=== PATIENT | male | born 1975 | race Caucasian/White ===

== ENCOUNTER → 2017-11-19 16:47 | Outpatient (CLI) | payer BC, SELFPAY ==
--- NOTE | 2017-11-19 16:51 | CT_ITS ---
STUDY: CT ABDOMEN AND PELVIS WITH AND WITHOUT CONTRAST REASON FOR EXAM: Male, 42 years old. Hematuria RADIATION DOSAGE (If Supplied By Facility): CTDIvol = ( 18.76 ) mGy, DLP = ( 1704.98 ) mGycm TECHNIQUE: Transaxial images were obtained from the dome of the diaphragm to the symphysis pubis without oral contrast. 100mL ml of Isovue 300 contrast was administered. Sagittal and coronal images were reconstructed. Individualized dose optimization techniques were used for this CT. COMPARISON: None. FINDINGS: The visualized lung bases are unremarkable. The visualized portions of the heart are within normal limits. There are no calcified gallstones present. The liver, spleen, pancreas and adrenal glands are within normal limits. There are no urinary calculi. There is no hydronephrosis. There are no focal renal lesions. Urinary bladder is unremarkable. There is no bowel obstruction or inflammation. The appendix is normal. There is no abdominal or pelvic free air, free fluid or lymphadenopathy. The aorta is normal in caliber. There are no destructive osseous lesions. There are degenerative changes in the lower lumbar spine. CT/CT Abd/Pelvis W/WO Contrast IMPRESSION: No acute abdominal or pelvic pathology. No cause for patient's hematuria identified on this study. Degenerative changes in the lower lumbar spine. Electronically Signed: Daryn Bal, at 19:20 EDT Tel , Service support ,
== END ==
PROVIDERS: Visit Provider Family Medicine
DX: N20.0 Calculus of kidney (principal)
CPT/HCPCS: 74178; Q9967

== ENCOUNTER 2023-01-03 10:31 | Emergency (ER) | payer BC, SELFPAY ==
[2023-01-03 10:33] VITALS: PULSE 89; RESP 18; TEMP 36; O2SAT 98; BMI 27.2
[2023-01-03 10:34] VITALS: BP 121/79; PULSE 95; RESP 18; O2SAT 99
--- NOTE | 2023-01-03 11:19 | EX.ED.GUMALE ---
HPI History of Present Illness Chief Complaint: Male Pain/Injury Informant: patient and spouse/S.O. Narrative Narrative: 47-year-old male presenting to the emergency department with chief complaint of syphilis. Patient states that his tested positive for syphilis and is here to get an injection of Bicillin after she was seen by infectious disease. He states that back in September when she developed a rash he also had a diffuse rash but has since resolved. He notes that he has painful sores on his scrotum now. He did test positive at an urgent care for syphilis. He states that the sores on his scrotum have developed and he was given methylprednisolone and gabapentin. He states that that has not helped. Other than urgent care he has not seen anybody for this. His significant other has been unable to find a pharmacy to get Bicillin injection and so came here which is how he ended up here. He denies any neurologic symptoms. No fevers. No dysuria. [facility] Medical History Hemorrhoids Pruritus ani Home Medications aspirin 81 mg tablet,delayed release (Adult Aspirin Regimen) 81 mg PO DAILY 09/17/22 [History Last Taken Unknown] oxycodone-acetaminophen 5 mg-325 mg tablet 1 tab PO Q6H PRN PRN Pain 3 days #12 TABLETS 01/03/23 [Rx Last Taken Unknown] sulfamethoxazole 800 mg-trimethoprim 160 mg tablet (Bactrim DS) 1 tab PO BID 10 days #20 tabs 01/03/23 [Rx Last Taken Unknown] Allergy/AdvReac Type Severity Reaction Status Date / Time No Known Allergies Allergy Verified 01/03/23 10:35 Social History Smoking Status: Unknown if ever smoked ROS ROS ED Constitutional Constitutional ED: Denies chills, fever(s) or weight loss Eyes Eyes: Denies change in vision or diplopia ENT ENT ED: Denies ear pain, rhinorrhea or sore throat Cardiovascular Cardiovascular: Denies chest pain, orthopnea, palpitations or racing heartbeat Respiratory/Chest Respiratory/Chest: Denies cough, dyspnea or orthopnea Gastrointestinal Gastrointestinal: Denies abdominal pain, diarrhea, nausea or vomiting Genitourinary Genitourinary ED: Denies dysuria, hematuria or urinary frequency Musculoskeletal Musculoskeletal: Denies arthralgias or myalgias Integumentary Reports rash and other Details: Pain follow scrotal lesions ; Denies abscess Neurologic Neurologic: Denies headache(s) or weakness Psychiatric Psychiatric: Denies anxiety, depression, suicidal ideation or suicidal thoughts Endocrine Endocrinology: Denies polydipsia, polyphagia or polyuria Allergic/Immunologic Allergic/Immunologic ED: Denies mouth swelling, tongue swelling or urticaria EXAM Physical Exam Const Vital Signs: 01/03/23 10:33 01/03/23 10:34 Temperature 96.8 F L Temperature Source Temporal Pulse Rate 89 95 Respiratory Rate 18 18 Blood Pressure 121/79 H Blood Pressure Mean 93 Pulse Ox 98 99 Oxygen Delivery Method Room Air Positive well nourished and well developed General Appearance ED: well developed HEENT Reports normocephalic, head/scalp atraumatic and moist mucous membranes Eyes PERRL and EOMs intact bilaterally Neck no lymphadenopathy, supple and no JVD Resp normal respiratory effort and clear to auscultation bilaterally Cardio regular rate, regular rhythm and no murmurs GI normal to inspection, nondistended, normoactive bowel sounds and non-tender Palpation: soft Back/Spine no CVA tenderness and normal ROM Extremity normal to inspection General Extremety ED: Negative for edema General Extremity: Negative for edema Neuro oriented x3 and CN's II-XII intact bilaterally Sensorium / Orientation: alert Motor Exam: strength 5/5 throughout Psych mental status grossly normal Mood & Affect: Negative for depressed or tearful Skin Skin Narrative: The scrotum demonstrates some erythema and swelling. Testicles appeared normal. There are multiple excoriated lesions on the scrotum that are in various states of healing. The penile shaft and glans appear normal. No drainage from the meatus. No significant inguinal lymphadenopathy felt. MDM MDM MDM Narrative Medical decision making narrative: Patient will be given penicillin G injection. I am also going to have him stop the prednisolone. I can write for some Percocet for pain control. I am going to write for Bactrim given the multiple lesions and erythema of the scrotum. He is to follow-up with infectious disease. Discharge Plan Triage Chief Complaint: Male Pain/Injury ED Provider: Steve Mcfarland Dx/Rx/DC Orders Clinical Impression: Cellulitis of scrotum, Syphilis Instructions: Syphilis, ED Cellulitis Prescriptions: New sulfamethoxazole-trimethoprim [Bactrim DS] 800-160 mg tablet 1 tab PO BID 10 Days Qty: 20 0RF oxycodone-acetaminophen [oxycodone-acetaminophen] 5-325 mg tablet 1 tab PO Q6H PRN PRN (Reason: Pain) 3 Days Qty: 12 0RF No Action aspirin [Adult Aspirin Regimen] 81 mg tablet,delayed release (DR/EC) 81 mg PO DAILY Primary Care Provider: Care Physician,No Primary Referrals: Austyn Allen MD [Med Staff - Active Staff] - As soon as possible Care Physician,No Primary [Primary Care Provider] - Disposition Disposition: Home, Self Care
[2023-01-03] MEDS: Penicillin G Benzathine 2.4 MU/4 ML Syringe IM (12:19)
== END 2023-01-03 13:13 | disposition home or self-care (01) ==
PROVIDERS: Emergency Provider Emergency Medicine; PCP Family Medicine; Visit Provider Emergency Medicine
DX: N49.2 Inflammatory disorders of scrotum (principal); A53.9 Syphilis, unspecified
CPT/HCPCS: 96372; 99283

== ENCOUNTER 2023-02-02 15:46 | Emergency (ER) | payer BC, SELFPAY ==
[2023-02-02 15:49] VITALS: BP 130/81; PULSE 81; RESP 18; TEMP 36.3; O2SAT 100; BMI 28.1
--- NOTE | 2023-02-02 15:59 | RAD_ITS ---
EXAM: XR LEFT ELBOW COMPLETE, 3 OR MORE VIEWS CLINICAL INDICATION: fall, pain. TECHNIQUE: Frontal, lateral and oblique views of the left elbow. COMPARISON: No relevant prior studies available. FINDINGS: BONES/JOINTS: Small olecranon spur. There is no displacement of the anterior or posterior fat pads. No acute fracture. No subluxation. Normal alignment. Preservation of the joint space. No destructive or sclerotic lesions. SOFT TISSUES: No significant abnormality. No soft tissue swelling or gas. No radiopaque foreign body. RAD/Elbow min 3 Views IMPRESSION: Small olecranon spur. No acute osseous findings. Electronically Signed: Abdi Matias DO at 16:37 EDT ,
--- NOTE | 2023-02-02 16:00 | EKG12_ITS ---
Test Reason : SYNCOPE Blood Pressure : / mmHG Vent. Rate : 075 BPM Atrial Rate : 075 BPM P-R Int : 160 ms QRS Dur : 096 ms QT Int : 368 ms P-R-T Axes : 053 032 031 degrees QTc Int : 410 ms Normal sinus rhythm Possible Left atrial enlargement Borderline ECG Confirmed by NAZ JIMENES, MICHAEL ([id number]), writer editor SCHUYLER LARA ([id number]) on 02/04/2023 10:44:36 AM Referred By: Confirmed By:MICHAEL CHILDS MD
--- NOTE | 2023-02-02 16:08 | CT_ITS ---
EXAM: CT ANGIOGRAPHY HEAD AND NECK WITHOUT AND WITH INTRAVENOUS CONTRAST CLINICAL INDICATION: syncope TECHNIQUE: [place] [facility] [place]/head and neck CT angiography protocol performed without and with intravenous contrast. This CT exam was performed using one or more of the following dose reduction techniques: automated exposure control, adjustment of the mA and/or kV according to patient size, and/or use of iterative reconstruction technique. MIP reconstructed images were created and reviewed. CONTRAST: IV 100mL Isovue-370 COMPARISON: No relevant prior studies available. FINDINGS: HEAD: RIGHT ANTERIOR CEREBRAL ARTERY: No significant abnormality. No significant stenosis at the visualized segments. Anterior communicating artery is present. No aneurysm. RIGHT MIDDLE CEREBRAL ARTERY: No significant abnormality. No significant stenosis at the visualized segments. No aneurysm. RIGHT POSTERIOR CEREBRAL ARTERY: No significant abnormality. No occlusion or significant stenosis. No aneurysm. RIGHT INTRACRANIAL INTERNAL CAROTID ARTERY: No significant abnormality. No significant stenosis. No dissection or occlusion. RIGHT INTRACRANIAL VERTEBRAL ARTERY: No significant abnormality. No significant stenosis. No dissection or occlusion. LEFT ANTERIOR CEREBRAL ARTERY: No significant abnormality. No significant stenosis at the visualized segments. No aneurysm. LEFT MIDDLE CEREBRAL ARTERY: No significant abnormality. No significant stenosis at the visualized segments. No aneurysm. LEFT POSTERIOR CEREBRAL ARTERY: No significant abnormality. No occlusion or significant stenosis. No aneurysm. LEFT INTRACRANIAL INTERNAL CAROTID ARTERY: No significant abnormality. No significant stenosis. No dissection or occlusion. LEFT INTRACRANIAL VERTEBRAL ARTERY: No significant abnormality. No significant stenosis. No dissection or occlusion. BASILAR ARTERY: No significant abnormality. No significant stenosis. No aneurysm. OTHER VASCULATURE: No vascular malformation. BRAIN AND EXTRA-AXIAL SPACES: No significant abnormality. No intra- or extra-axial hemorrhage. No evidence of acute infarct. No intracranial mass or mass effect. There is preservation of the simon/white matter interface. Posterior fossa structures are unremarkable. Ventricles are appropriate for age. No hydrocephalus. Basal cisterns are patent. SINUSES: Normal as visualized. Clear. MASTOID AIR CELLS: Normal as visualized. Clear. ORBITS: Visualized globes, extraocular muscles, optic nerves and retrobulbar fat appear unremarkable. DENTAL: The patient is edentulous. NECK: RIGHT COMMON CAROTID ARTERY: No significant abnormality. No significant stenosis. No dissection or occlusion. RIGHT EXTRACRANIAL INTERNAL CAROTID ARTERY: No significant abnormality. No significant stenosis. No dissection or occlusion. RIGHT EXTERNAL CAROTID ARTERY: No significant abnormality. No occlusion. RIGHT EXTRACRANIAL VERTEBRAL ARTERY: No significant abnormality. No significant stenosis. No dissection or occlusion. LEFT COMMON CAROTID ARTERY: No significant abnormality. No significant stenosis. No dissection or occlusion. LEFT EXTRACRANIAL INTERNAL CAROTID ARTERY: No significant abnormality. No significant stenosis. No dissection or occlusion. LEFT EXTERNAL CAROTID ARTERY: No significant abnormality. No occlusion. LEFT EXTRACRANIAL VERTEBRAL ARTERY: No significant abnormality. No significant stenosis. No dissection or occlusion. OROPHARYNX: Asymmetric faucial tonsil enlargement with left tonsillar calcification perhaps secondary to chronic and/or recurrent infection/inflammation. The left tonsil is slightly larger than the right. BRACHIOCEPHALIC AND SUBCLAVIAN ARTERIES: Normal as visualized. No occlusion or significant stenosis. LUNG APICES: Normal as visualized. HEAD and NECK: BONES/JOINTS: Degenerative changes in the cervical spine. No discrete lytic or blastic abnormalities. SOFT TISSUES: No significant abnormality. CAROTID STENOSIS REFERENCE USING NASCET CRITERIA: % ICA stenosis = (1 - narrowest ICA diameter/diameter of distal cervical ICA) x 100. Mild - <50% stenosis. Moderate - 50-69% stenosis. Severe - 70-94% stenosis. Near occlusion - 95-99% stenosis. Occluded - 100% stenosis. CT/CTA Head AND Neck W/ Contrast IMPRESSION: 1. No large vessel occlusion or critical intracranial arterial stenosis. No significant arterial disease in the neck. 2. Noncontrast appearance of the head is normal for age. 3. Asymmetric faucial tonsil enlargement with left tonsillar calcification perhaps secondary to chronic and/or recurrent infection/inflammation. The left tonsil is slightly larger than the right. Consider follow-up ENT consultation for direct visualization. Electronically Signed: Abdi Matias DO at 17:19 EDT ,
[2023-02-02] MEDS: 0.9% Normal Saline (1000mL) 1,000 ML 1000 ML IV (16:10)
--- NOTE | 2023-02-02 16:10 | RAD_ITS ---
EXAM: XR CHEST, 1 VIEW CLINICAL INDICATION: cough TECHNIQUE: Frontal view of the chest. COMPARISON: CT abdomen and pelvis, 11/19/2017. FINDINGS: LUNGS AND PLEURAL SPACES: Small granulomas in the bilateral upper lobes. No focal airspace disease. No pneumothorax. No effusion. HEART: No significant abnormality. Cardiac silhouette not enlarged. MEDIASTINUM: Central airways and mediastinal contour are unremarkable. BONES/JOINTS: Degenerative changes in the spine and left shoulder. SOFT TISSUES: No significant abnormality. RAD/Chest 1 View (Portable) IMPRESSION: No acute findings in the chest. Electronically Signed: Abdi Matias DO at 16:45 EDT ,
--- NOTE | 2023-02-02 16:13 | EX.ED.DYSGE1 ---
HPI <CHRIS Lawton - Last Filed: 02/02/23 17:28> History of Present Illness Chief Complaint: Syncope Narrative Narrative: 47-year-old male with history of HIV disease, cellulitis, hemorrhoids hyperlipidemia who presents to the emergency department after a syncopal episode that occurred at 1 AM this morning. Patient's he got up because he had to use the restroom, he had to urinate. After urinating, he felt dizzy, feel like he might pass out, he wanted walk back to the bedroom, forgot to turn the light off and went back to turn the light off and had a syncopal episode. He states he landed on his left elbow which is swollen. [place] any head or neck injury. His was able to help him back to work and he slept until 10:30 AM. Because this is the third time he has had a syncopal episode in the last few years he is here for evaluation. [place] any chest pain or shortness of breath. He does state to have intermittent headaches. He did have a headache this morning PFSH <CHRIS Lawton - Last Filed: 02/02/23 17:28> [facility] Medical History (Updated 02/02/23 @ 17:28 by CHRIS Lawton) HIV (human immunodeficiency virus infection) Marfan syndrome Pruritus ani Home Medications aspirin 81 mg tablet,delayed release (Adult Aspirin Regimen) 81 mg PO DAILY 09/17/22 [History Last Taken Unknown] lubiprostone 24 mcg capsule (Amitiza) 24 mcg PO QHS #30 caps 01/21/23 [Rx Last Taken Unknown] hydrocortisone acetate 30 mg rectal suppository 30 mg VT DAILY #12 ea 01/29/23 [Rx Last Taken Unknown] Allergy/AdvReac Type Severity Reaction Status Date / Time No Known Allergies Allergy Verified 02/02/23 15:49 Surgical History (Updated 02/02/23 @ 16:12 by Meggan Darden) History of hernia repair Social History Smoking Status: Unknown if ever smoked ROS <CHRIS Lawton - Last Filed: 02/02/23 17:28> ROS ED ROS Narrative Constitutional: Negative for fever, chills, weight loss, weakness Eyes: Negative for vision loss, vision change, double vision ENT: Negative for any sore throat, ear pain, congestion Cardiovascular: Negative for any chest pain, tightness, palpitations Respiratory: Negative for any cough, sputum production, hemoptysis, dyspnea, dyspnea on exertion, orthopnea Gastrointestinal: Negative for any abdominal pain, nausea, vomiting, diarrhea, constipation, blood in stool, blood in vomit : Negative for any urinary frequency, dysuria, retention, blood in urine Muscle skeletal: Negative for any muscle joint pain, stiffness, myalgias, arthralgias, neck pain, back pain. Positive for left elbow pain Neurological: Negative for any numbness or tingling, dizziness. Positive for headache, syncope Skin: Negative for any rashes, lumps, itching, abrasions, lacerations Psychiatric: Negative for any depression, anxiety, stress, suicidal ideation, homicidal ideation Hematologic: Negative for any easy bruising, excessive bruising, easy bleeding Allergies: Negative for any eczema, hives, rash EXAM <CHRIS Lawton - Last Filed: 02/02/23 17:28> Physical Exam Narrative Exam Narrative: Vital signs reviewed. HEET: Head normocephalic atraumatic, TMs clear bilaterally. Posterior pharynx is clear, moist mucous membranes. Nares clear bilaterally. Pupils are equal round reactive to light, negative for any hematoma, negative for any septal hematoma. Negative for any nystagmus Neck: Supple with no lymphadenopathy or tenderness. No signs of meningismus, negative jolt sign. Cardiac: Regular rate and rhythm no murmurs gallops or rubs, equal peripheral pulses bilaterally. Respiratory: Lungs clear to auscultation bilaterally. No chest tenderness. Abdomen: Soft, nontender, nondistended. No abdominal bruit or pulsatile masses. No hepatosplenomegaly Extremities: No peripheral edema, no signs of gross trauma or deformity. Active full range of motion of all extremities. Neuro: Cranial nerves II through XII intact, no focal neurological deficits. NIH stroke scale 0 Skin: Clean dry and intact with no rash, purpura, petechiae, vesicles or pustules. Backs/flank: No CVA tenderness, no midline spinal tenderness, no deformity. Psych: Normal mood and affect. No SI, HI or acute psychosis. Const Vital Signs: 02/02/23 15:49 02/02/23 16:15 Temperature 97.4 F L Temperature Source Temporal Pulse Rate 81 Respiratory Rate 18 Respiratory Effort Normal Respiratory Pattern Normal Blood Pressure 130/81 H Blood Pressure Mean 97 Pulse Ox 100 Oxygen Delivery Method Room Air Positive well nourished and well developed General Appearance ED: well developed <Dr. Pradeep Lara DO - Last Filed: 02/02/23 19:10> Physical Exam Const Vital Signs: 02/02/23 15:49 02/02/23 16:15 Temperature 97.4 F L Temperature Source Temporal Pulse Rate 81 Respiratory Rate 18 Respiratory Effort Normal Respiratory Pattern Normal Blood Pressure 130/81 H Blood Pressure Mean 97 Pulse Ox 100 Oxygen Delivery Method Room Air MDM <CHRIS Lawton - Last Filed: 02/02/23 17:28> MDM Lab Data Labs: Laboratory Results - last 24 hr 02/02/23 02/02/23 16:05 17:20 WBC 7.3 RBC 4.87 Hgb 15.1 Hct 44.9 MCV 92.2 MCH 31.0 MCHC 33.6 RDW Std Deviation 44.8 H RDW Coeff of Dennis 13.2 Plt Count 213 MPV 9.6 Immature Gran % (Auto) 0.100 Neut % (Auto) 52.6 Lymph % (Auto) 34.2 Plumas % (Auto) 10.1 H Eos % (Auto) 2.6 Baso % (Auto) 0.4 Absolute Neuts (auto) 3.8 Absolute Lymphs (auto) 2.48 Nucleated RBC % 0 Sodium 141 Potassium 3.8 Chloride 108 H Carbon Dioxide 29.0 Anion Gap 4 L BUN 22 H Creatinine 1.03 Estim Creat Clear Calc 109.33 Est GFR (MDRD) Af Amer 99 Est GFR (MDRD) Non-Af 81 BUN/Creatinine Ratio 21.4 H Glucose 96 Calcium 9.1 Troponin I High Sens 3 Urine Color Yellow Urine Clarity Clear Urine pH 5.0 Ur Specific Eva 1.020 Urine Protein 15 H Urine Glucose (UA) Normal Urine Ketones Negative Urine Occult Blood 10 H Urine Nitrite Negative Urine Bilirubin Negative Urine Urobilinogen Normal Ur Leukocyte Esterase 25 H Urine RBC 0 SEEN Urine WBC 0-5 SEEN Ur Squamous Epith Cells 0 SEEN Urine Bacteria 0 SEEN Urine Mucus 0 SEEN Radiography Diagnostic Testing: Clinical Impression(s) from Imaging Studies Elbow X-Ray 02/02/23 15:59 IMPRESSION: Small olecranon spur. No acute osseous findings. Electronically Signed: Abdi Matias DO at 16:37 EDT , Head/Neck CTA 02/02/23 16:08 IMPRESSION: 1. No large vessel occlusion or critical intracranial arterial stenosis. No significant arterial disease in the neck. 2. Noncontrast appearance of the head is normal for age. 3. Asymmetric faucial tonsil enlargement with left tonsillar calcification perhaps secondary to chronic and/or recurrent infection/inflammation. The left tonsil is slightly larger than the right. Consider follow-up ENT consultation for direct visualization. Electronically Signed: Abdi Matias DO at 17:19 EDT , Chest X-Ray 02/02/23 16:10 IMPRESSION: No acute findings in the chest. Electronically Signed: Abdi Matias DO at 16:45 EDT , EKG EKG shows normal sinus rhythm, rate of 75 bpm: Comments: 35 bpm, VT 160 ms, QRS duration 96 ms, no acute ST elevation, no acute infarct noted Treatment and Re-Evaluation :: Patient appears generally well, patient appears nontoxic, vital signs are stable. Presenting to the emergency department for a syncopal episode while urinating at 1 in the morning. Patient will receive a full cardiac work-up, patient will also receive a CTA of the head and neck to rule out any aneurysm, subarachnoid hemorrhage, mass. Patient EKG was unremarkable. Patient was given 1 L normal saline. Patient's chest x-ray interpreted the ER physician shows no acute findings in the chest. 3 view of the left elbow shows a small acute on spur however no acute osseous findings. Patient's CTA of the head and neck showed no large vessel occlusion or critical intracranial arterial stenosis. No significant arterial disease in the neck. At this time, there is no evidence of any toxoplasmosis, hydrocephaly, mass. Patient be diagnosed with syncope. Patient's laboratory values were unremarkable, negative troponin. EKG was unremarkable. I do not believe this is a cardiac issue. Patient will need to follow-up outpatient. He was given strict return precautions. Patient stable for discharge ED attending note: I evaluated the patient in conjunction with the RICHARD. I agree with his/her statements and above findings. I have personally performed a face to face assessment of the patient and have reviewed the RICHARD Note. I performed a substantive portion of the visit including all aspects of the following. I personally saw the patient performed chart review, physical exam, reviewed labs, imaging (if obtained), and formulated a treatment and management plan. Brief history: 47-year-old male here with syncope after urinating and headache. States his headache and syncope are not related. States he was urinating last night approximately 1 AM and transiently lost consciousness with complete return to baseline. No seizure-like activity no headache. No chest pain no palpitations. No abdominal pain. Does have a history of passing out while urinating. He denies any family history of early cardiac . He does endorse a history of HIV and Marfan syndrome however. Exam: Nursing triage notes reviewed, Vital signs reviewed Constitutional: please see mdm HENT: MMM Eyes: Pupils equal round and reactive to light, Extraocular muscles intact Neck: No stridor, no JVD, full neck ROM Lungs: Clear to auscultation, No wheezing or rales. No increased work of breathing, no conversational dyspnea, no accessory muscle use, no nasal flaring. No respiratory distress noted Heart: Regular rate and rhythm, No murmurs, No rubs and No gallops, 2+ distal pulses (radial, femoral, posterior tibial) in all extremities Abdomen: Soft, there is no tenderness, rigidity, rebound or guarding, no obvious peritoneal signs, no palpable pulsatile abdominal masses, no auscultated abdominal bruit : No CVAT Extremities: No edema Neuro: Alert and oriented x3, neuro exam at baseline, cranial nerves II through XII are intact. No pain with extraocular muscle movement. There is negative test of skew. 5 of 5 strength in upper and lower extremities in flexion extension. Intact sensation to light touch in upper and lower extremity dermatomes. No truncal or extremity ataxia. No dysdiadochokinesia. Normal gait. 2+ reflexes in upper and lower extremities. No meningeal signs. Negative Babinski. NIH of 0. Skin: No rash or lesions noted MDM/plan: Chief Complaint: Syncope, headache External records reviewed: Prior chart reviewed: History of HIV last viral load 16,400 no CD4 count reported at this time Factors affecting care: HIV, Social determinants of health: History of HIV History obtained from others: None Consults: None at this time [facility] narrative: Patient was hemodynamically stable, afebrile, nontoxic-appearing. Exam without focal neurologic abnormalities, no meningeal signs. Low suspicion for subarachnoid hemorrhage despite patient report of headache and history of Marfan syndrome. Will obtain advanced imaging of the brain given history of HIV to rule out intracranial abnormality such as toxoplasmosis, subarachnoid hemorrhage, mass. We will also obtain an EKG, labs and chest x-ray to rule out any intracranial, cardiac, electrolyte, anemia associated etiologies. We will dispo based on results of labs and images. I did discuss with the patient the specter of a negative CT scan and the evidence-based practice of obtaining a lumbar puncture to further elucidate if he had a subarachnoid hemorrhage. Risk and benefits of LP were discussed. Patient was alert and orient x3 and chose to forego LP at this time. Patient had capacity to make his own medical decisions. Shared decision making: I will have a discussion with the patient and or visitors regarding risk/benefits of further testing or admission. They will be made aware of of the risk/benefits inherent in this decision they will be given the opportunity to voice understanding. <Dr. Pradeep Lara, DO - Last Filed: 02/02/23 19:10> [facility] Lab Data Attestation: I reviewed the patient's lab results. Labs: Laboratory Results - last 24 hr 02/02/23 02/02/23 16:05 17:20 WBC 7.3 RBC 4.87 Hgb 15.1 Hct 44.9 MCV 92.2 MCH 31.0 MCHC 33.6 RDW Std Deviation 44.8 H RDW Coeff of Dennis 13.2 Plt Count 213 MPV 9.6 Immature Gran % (Auto) 0.100 Neut % (Auto) 52.6 Lymph % (Auto) 34.2 [place]umas % (Auto) 10.1 H Eos % (Auto) 2.6 Baso % (Auto) 0.4 Absolute Neuts (auto) 3.8 Absolute Lymphs (auto) 2.48 Nucleated RBC % 0 Sodium 141 Potassium 3.8 Chloride 108 H Carbon Dioxide 29.0 Anion Gap 4 L BUN 22 H Creatinine 1.03 Estim Creat Clear Calc 109.33 Est GFR (MDRD) Af Amer 99 Est GFR (MDRD) Non-Af 81 BUN/Creatinine Ratio 21.4 H Glucose 96 Calcium 9.1 Troponin I High Sens 3 Urine Color Yellow Urine Clarity Clear Urine pH 5.0 Ur Specific Eva 1.020 Urine Protein 15 H Urine Glucose (UA) Normal Urine Ketones Negative Urine Occult Blood 10 H Urine Nitrite Negative Urine Bilirubin Negative Urine Urobilinogen Normal Ur Leukocyte Esterase 25 H Urine RBC 0 SEEN Urine WBC 0-5 SEEN Ur Squamous Epith Cells 0 SEEN Urine Bacteria 0 SEEN Urine Mucus 0 SEEN Radiography Diagnostic Testing: Clinical Impression(s) from Imaging Studies Elbow X-Ray 02/02/23 15:59 IMPRESSION: Small olecranon spur. No acute osseous findings. Electronically Signed: Abdi Matias DO at 16:37 EDT , Head/Neck CTA 02/02/23 16:08 IMPRESSION: 1. No large vessel occlusion or critical intracranial arterial stenosis. No significant arterial disease in the neck. 2. Noncontrast appearance of the head is normal for age. 3. Asymmetric faucial tonsil enlargement with left tonsillar calcification perhaps secondary to chronic and/or recurrent infection/inflammation. The left tonsil is slightly larger than the right. Consider follow-up ENT consultation for direct visualization. Electronically Signed: Abdi Matias DO at 17:19 EDT , Chest X-Ray 02/02/23 16:10 IMPRESSION: No acute findings in the chest. Electronically Signed: Abdi Matias DO at 16:45 EDT , EKG EKG shows normal sinus rhythm, rate of 75 bpm: Comments: 75 bpm, VT 160 ms, QRS duration 96 ms, no acute ST elevation, no acute infarct noted Treatment and Re-Evaluation :: Patient appears generally well, patient appears nontoxic, vital signs are stable. Presenting to the emergency department for a syncopal episode while urinating at 1 in the morning. Patient will receive a full cardiac work-up, patient will also receive a CTA of the head and neck to rule out any aneurysm, subarachnoid hemorrhage, mass. Patient EKG was unremarkable. Patient was given 1 L normal saline. ED attending note: I evaluated the patient in conjunction with the RICHARD. I agree with his/her statements and above findings. I have personally performed a face to face assessment of the patient and have reviewed the RICHARD Note. I performed a substantive portion of the visit including all aspects of the following. I personally saw the patient performed chart review, physical exam, reviewed labs, imaging (if obtained), and formulated a treatment and management plan. Brief history: 47-year-old male here with syncope after urinating and headache. States his headache and syncope are not related. States he was urinating last night approximately 1 AM and transiently lost consciousness with complete return to baseline. No seizure-like activity no headache. No chest pain no palpitations. No abdominal pain. Does have a history of passing out while urinating. He denies any family history of early cardiac . He does endorse a history of HIV and Marfan syndrome however. Exam: Nursing triage notes reviewed, Vital signs reviewed Constitutional: please see mdm HENT: MMM Eyes: Pupils equal round and reactive to light, Extraocular muscles intact Neck: No stridor, no JVD, full neck ROM Lungs: Clear to auscultation, No wheezing or rales. No increased work of breathing, no conversational dyspnea, no accessory muscle use, no nasal flaring. No respiratory distress noted Heart: Regular rate and rhythm, No murmurs, No rubs and No gallops, 2+ distal pulses (radial, femoral, posterior tibial) in all extremities Abdomen: Soft, there is no tenderness, rigidity, rebound or guarding, no obvious peritoneal signs, no palpable pulsatile abdominal masses, no auscultated abdominal bruit : No CVAT Extremities: No edema Neuro: Alert and oriented x3, neuro exam at baseline, cranial nerves II through XII are intact. No pain with extraocular muscle movement. There is negative test of skew. 5 of 5 strength in upper and lower extremities in flexion extension. Intact sensation to light touch in upper and lower extremity dermatomes. No truncal or extremity ataxia. No dysdiadochokinesia. Normal gait. 2+ reflexes in upper and lower extremities. No meningeal signs. Negative Babinski. NIH of 0. Skin: No rash or lesions noted MDM/plan: Chief Complaint: Syncope, headache External records reviewed: Prior chart reviewed: History of HIV last viral load 16,400 no CD4 count reported at this time Factors affecting care: HIV, Social determinants of health: History of HIV History obtained from others: None Consults: None at this time MDM narrative: Patient was hemodynamically stable, afebrile, nontoxic-appearing. Exam without focal neurologic abnormalities, no meningeal signs. Low suspicion for subarachnoid hemorrhage despite patient report of headache and history of Marfan syndrome. Will obtain advanced imaging of the brain given history of HIV to rule out intracranial abnormality such as toxoplasmosis, subarachnoid hemorrhage, mass. We will also obtain an EKG, labs and chest x-ray to rule out any intracranial, cardiac, electrolyte, anemia associated etiologies. We will dispo based on results of labs and images. I did discuss with the patient the specter of a negative CT scan and the evidence-based practice of obtaining a lumbar puncture to further elucidate if he had a subarachnoid hemorrhage. Risk and benefits of LP were discussed. Patient was alert and orient x3 and chose to forego LP at this time. Patient had capacity to make his own medical decisions. Shared decision making: I will have a discussion with the patient and or visitors regarding risk/benefits of further testing or admission. They will be made aware of of the risk/benefits inherent in this decision they will be given the opportunity to voice understanding. Discharge Plan Triage Chief Complaint: Syncope ED Midlevel Provider: Luis Farris ED Provider: Pradeep Lara Dx/Rx/DC Orders Clinical Impression: Episode of syncope Instructions: Causes of Syncope, Diagnosing Syncope Prescriptions: No Action aspirin [Adult Aspirin Regimen] 81 mg tablet,delayed release (DR/EC) 81 mg PO DAILY lubiprostone [Amitiza] 24 mcg capsule 24 mcg PO QHS Qty: 30 3RF hydrocortisone acetate 30 mg suppository 30 mg VT DAILY Qty: 12 11RF Primary Care Provider: James Gamble Referrals: James Gamble MD [Primary Care Provider] - Activity Restrictions/Additional Instructions: Please maintain your hydration. Return for any worsening symptoms. Disposition Disposition: Home, Self Care Discharge Date/Time: 02/02/23 17:43
[2023-02-02 16:17] LABS: Absolute Lymphocyte Count 2.48 X10^3/uL (0.83-4.51); Absolute Neutrophil Count 3.8 X10^3/uL (2.0-7.7); Basophil# 0.03 X10^3/uL; Basophil% 0.4 % (0-1); Eosinophil# 0.19 X10^3/uL; Eosinophils% 2.6 % (0-5); Hematocrit 44.9 % (40-54); Hemoglobin 15.1 g/dL (13.0-16.5); Lymphocyte # 2.48 X10^3/ul (0.83-4.51); Lymphocyte % 34.2 % (19-41); Mean Corp Hgb Conc 33.6 g/dL (32-36); Mean Corpuscular Volume 92.2 fL (80-94); Mean Platelet Vol. 9.6 fl (6.2-12.0); Monocyte# 0.73 X10^3/uL; Monocyte% 10.1 % (0-10); NRBC Flagged by Analyzer 0 % (0-5); Neutrophil # 3.82 X10^3/uL (2.7-7.7); Neutrophil % 52.6 % (47-70); Platelet Count 213 K/mm3 (150-450); RBC Distribution Width CV 13.2 % (11.6-14.6); RBC Distribution Width SD 44.8 fl (35.1-43.9); Red Blood Count 4.87 M/mm3 (4.6-6.2); White Blood Count 7.3 K/mm3 (4.4-11.0)
[2023-02-02 16:33] LABS: Anion Gap 4 (5-15); BUN 22 mg/dL (7-18); BUN/Creat Ratio 21.4 RATIO (10-20); Calcium,Total 9.1 mg/dL (8.5-10.1); Chloride 108 mmol/L (98-107); Creatinine, Serum 1.03 mg/dL (0.70-1.30); EST Glomerular Filtration Rate 81 mL/min (>60); Est Glom Filt Rate - Afr Amer 99 mL/min (>60); Estimated Creatinine Clearance 109.33 ml/min; Glucose 96 mg/dL (74-106); Potassium 3.8 mmol/L (3.5-5.1); Sodium Level 141 mmol/L (136-145); Troponin-I HS 3 pg/mL (3.0-78.0)
[2023-02-02 17:32] LABS: Bacteria 0 SEEN /hpf (None Seen); Mucous, Urine 0 SEEN /hpf (<or=2+); Red Blood Cells-Urine 0 SEEN /hpf (0-5); Squamous Epithelial Cells - UA 0 SEEN /hpf (0-5)
[2023-02-02 17:45] LABS: Color, Urine Yellow (Yellow); Glucose, Dipstick Normal (Normal); Ketone-Dipstick Negative (Negative); Leukocyte Esterase-Dipstick 25 /ul (Negative); Nitrite-Dipstick Negative (Negative); Occult Blood-Urine 10 /ul (Negative); Protein-Dipstick 15 mg/dl (Negative); Urine Bilirubin Dipstick Negative (Negative); Urine Clarity Clear (Clear); Urine Urobilinogen Normal (Normal)
[2023-02-02 17:54] LABS: White Blood Cells 0-5 SEEN /hpf (0-5)
== END 2023-02-02 17:43 | disposition home or self-care (01) ==
PROVIDERS: Nurse Practitioner; Emergency Provider Emergency Medicine; PCP Family Medicine; Visit Provider Emergency Medicine
DX: R55 Syncope and collapse (principal); B20 Human immunodeficiency virus [HIV] disease
CPT/HCPCS: 70496; 70498; 71045; 73080; 80048; 81001; 84484; 85025; 93005; 99283; J7030; Q9967

== ENCOUNTER 2023-05-29 11:15 | Emergency (ER) | payer BC, SELFPAY ==
[2023-05-29 11:17] VITALS: BP 120/82; PULSE 68; RESP 22; TEMP 36.4; O2SAT 100; BMI 31.1
--- NOTE | 2023-05-29 11:58 | CT_ITS ---
STUDY: CT ABDOMEN AND PELVIS WITHOUT CONTRAST REASON FOR EXAM: Male, 47 years old. Right flank pain RADIATION DOSAGE (If Supplied By Facility): CTDIvol = ( 17.14 ) mGy, DLP = ( 950.80 ) mGycm TECHNIQUE: Transaxial images were obtained from the dome of the diaphragm to the symphysis pubis without oral contrast, and without intravenous contrast. Sagittal and coronal images were reconstructed. Individualized dose optimization techniques were used for this CT. COMPARISON: Comparison is made with prior study dated November 19, 2017. FINDINGS: The visualized lung bases are unremarkable. The visualized portions of the heart are within normal limits. Normal liver. Normal gallbladder and extrahepatic biliary system. Normal spleen. Normal pancreas. Normal bilateral adrenal glands. There is a 5.4 mm calculus in the upper pole calyx of the right kidney. Mild degree of right hydronephrosis due to a 2 mm, calculus at the right ureterovesical junction. Normal left kidney. Retroaortic left renal vein. Normal visualized stomach. Normal small intestine. Normal colon. The appendix is visualized and appears normal. Normal abdominal aorta. Normal inferior vena cava. Normal retroperitoneum. Distended urinary bladder. There is a small umbilical hernia containing fat. There are diffuse degenerative changes of the visualized lumbar spine. Straightening of the normal lumbar lordosis. Mild dextroscoliosis. CT/Abdomen/Pelvis without Cont IMPRESSION: 2 mm focus at the right ureterovesical junction causing mild hydronephrosis. 5.4 mm calculus in the upper pole calyx of the right kidney. Electronically Signed: José Antonio Lutz MD at 12:52 EST ,
--- NOTE | 2023-05-29 12:04 | EX.ED.DYSGE1 ---
HPI History of Present Illness Chief Complaint: Flank Pain Informant: patient Onset/Context/Timing Onset: Today Narrative Narrative: Patient presents with waxing and waning right flank pain that he noted this morning. He has had 2 prior kidney stones and states this feels similar. He is was been able to pass the stones on his own and has not required surgery. [facility] Medical History HIV (human immunodeficiency virus infection) Marfan syndrome Pruritus ani Home Medications bictegravir 50 mg-emtricitabine 200 mg-tenofovir alafenam 25 mg tablet (Biktarvy) 1 tab PO DAILY 05/29/23 [History Last Taken Unknown] hydrocodone-acetaminophen 5-325mg 5mg-325mg 1 tab PO Q6H PRN PRN Pain 3 days #10 TABLETS 05/29/23 [Rx Last Taken Unknown] ibuprofen 600 mg tablet 600 mg PO Q8H PRN PRN pain #20 TABLETS 05/29/23 [Rx Last Taken Unknown] omeprazole 40 mg capsule,delayed release 40 mg PO DAILY 05/29/23 [History Last Taken Unknown] ondansetron 4 mg disintegrating tablet 4 mg PO Q8H PRN PRN Nausea #10 tabs 05/29/23 [Rx Last Taken Unknown] rosuvastatin 10 mg tablet (Crestor) 10 mg PO DAILY 05/29/23 [History Last Taken Unknown] tamsulosin 0.4 mg capsule (Flomax) 0.4 mg PO DAILY #7 caps 05/29/23 [Rx Last Taken Unknown] Allergy/AdvReac Type Severity Reaction Status Date / Time No Known Allergies Allergy Verified 02/02/23 15:49 Surgical History History of hernia repair Social History Smoking Status: Never smoker ROS ROS ED Constitutional Constitutional ED: Denies chills or fever(s) Eyes Eyes: Denies discharge from eye(s) ENT ENT ED: Denies discharge from eye(s), rhinorrhea or sore throat Cardiovascular Cardiovascular: Denies chest pain or palpitations Respiratory/Chest Respiratory/Chest: Denies cough or dyspnea Gastrointestinal Gastrointestinal: Reports abdominal pain; Denies nausea or vomiting Genitourinary Genitourinary ED: Denies dysuria or hematuria Musculoskeletal Musculoskeletal: Reports back pain; Denies extremity pain Integumentary Denies Abrasions or rash Neurologic Neurologic: Denies headache(s) or weakness Psychiatric Psychiatric: Denies anxiety or depression Allergic/Immunologic Allergic/Immunologic ED: Denies lip swelling or urticaria EXAM Physical Exam Const Vital Signs: 05/29/23 11:17 Temperature 97.5 F L Temperature Source Temporal Pulse Rate 68 Respiratory Rate 22 H Blood Pressure 120/82 H Blood Pressure Mean 94 Pulse Ox 100 Oxygen Delivery Method Room Air Positive well nourished and well developed General Appearance ED: well developed HEENT Reports moist mucous membranes Eyes EOMs intact bilaterally Chest Wall inspection of chest normal and palpation of chest normal Resp normal respiratory effort and clear to auscultation bilaterally Cardio regular rate and regular rhythm GI non-tender Auscultation: normoactive bowel sounds Palpation: soft Extremity normal to inspection Neuro oriented x3 and no sensory deficits noted Motor Exam: strength 5/5 throughout Psych mental status grossly normal Skin no rashes or lesions noted MDM MDM MDM Narrative Medical decision making narrative: IV line established. Labwork obtained to evaluate for leukocytosis, anemia, and electrolyte derangement. Urinalysis obtained to evaluate for infection/hematuria. CT flank obtained to evaluate for potential kidney stone. Patient given morphine, Zofran, Toradol, and IV fluids. History & Record Review Discussion w/independent historian: Patient Lab Data Attestation: I reviewed the patient's lab results. Labs: Laboratory Results - last 24 hr 05/29/23 05/29/23 11:35 13:00 WBC 5.7 RBC 4.89 Hgb 14.8 Hct 43.6 MCV 89.2 MCH 30.3 MCHC 33.9 RDW Std Deviation 43.3 RDW Coeff of Dennis 13.2 Plt Count 211 MPV 10.1 Immature Gran % (Auto) 0.200 Neut % (Auto) 49.1 Lymph % (Auto) 35.8 [place] % (Auto) 11.2 H Eos % (Auto) 3.0 Baso % (Auto) 0.7 Absolute Neuts (auto) 2.8 Absolute Lymphs (auto) 2.05 Nucleated RBC % 0 Sodium 139 Potassium 3.5 Chloride 109 H Carbon Dioxide 31.0 Anion Gap -1 L BUN 15 Creatinine 1.16 Estim Creat Clear Calc 110.06 Est GFR (MDRD) Af Amer 86 Est GFR (MDRD) Non-Af 71 BUN/Creatinine Ratio 12.9 Glucose 102 Calcium 8.7 Urine Color Yellow Urine Clarity Sl. Cloudy Urine pH 6.5 Ur Specific [place] 1.015 Urine Protein Negative Urine Glucose (UA) Normal Urine Ketones Negative Urine Occult Blood 250 H Urine Nitrite Negative Urine Bilirubin Negative Urine Urobilinogen Normal Ur Leukocyte Esterase 25 H Urine RBC 25-50 SEEN Urine WBC 0-5 SEEN Ur Squamous Epith Cells 0-5 SEEN Calcium Oxalate Crystal RARE Urine Bacteria 0 SEEN Urine Mucus 0 SEEN Radiography Diagnostic Testing: Clinical Impression(s) from Imaging Studies Abdomen/Pelvis CT 05/29/23 11:58 IMPRESSION: 2 mm focus at the right ureterovesical junction causing mild hydronephrosis. 5.4 mm calculus in the upper pole calyx of the right kidney. Electronically Signed: José Antonio Lutz MD at 12:52 EST , Treatment and Re-Evaluation :: CBC was normal white count 5.7 with normal differential. Hemoglobin is 14.8. Chemistry studies unremarkable with normal renal function. Urinalysis reveals 25-50 RBCs with no evidence of infection. CT flank reveals a 2 mm stone at the right UVJ causing mild hydronephrosis. There is also a 5.4 mm calculus in the upper pole of the right kidney. Test results discussed with the patient. I will write him analgesics and antiemetics for home along with Flomax. He is referred to urology if not improving. Return instructions were also given. Discharge Plan Triage Chief Complaint: Flank Pain ED Provider: Camila Villagran Dx/Rx/DC Orders Clinical Impression: Ureterolithiasis Instructions: ED Kidney Stone with Pain Prescriptions: New ibuprofen 600 mg tablet 600 mg PO Q8H PRN PRN (Reason: pain) Qty: 20 0RF ondansetron 4 mg tablet,disintegrating 4 mg PO Q8H PRN PRN (Reason: Nausea) Qty: 10 0RF hydrocodone-acetaminophen 5-325 mg tablet 1 tab PO Q6H PRN PRN (Reason: Pain) 3 Days Qty: 10 0RF tamsulosin [Flomax] 0.4 mg capsule 0.4 mg PO DAILY Qty: 7 0RF No Action omeprazole 40 mg capsule,delayed release(DR/EC) 40 mg PO DAILY Biktarvy 50-200-25 mg tablet 1 tab PO DAILY rosuvastatin [Crestor] 10 mg tablet 10 mg PO DAILY Primary Care Provider: James Gamble Referrals: James Gamble MD [Primary Care Provider] - Gael Nowak MD [Med Staff - Active Staff] - As Needed Disposition Disposition: Home, Self Care
[2023-05-29] MEDS: Ondansetron 4 MG/2 ML Vial IV (12:05)
[2023-05-29] MEDS: Morphine 4 MG/ML Syringe IV (12:05)
[2023-05-29] MEDS: Ketorolac 30 MG/ML Syringe IV (12:05)
[2023-05-29] MEDS: 0.9% Normal Saline (1000mL) 1,000 ML 150 ML IV (12:05)
[2023-05-29 12:11] LABS: Absolute Lymphocyte Count 2.05 X10^3/uL (0.83-4.51); Absolute Neutrophil Count 2.8 X10^3/uL (2.0-7.7); Basophil# 0.04 X10^3/uL; Basophil% 0.7 % (0-1); Eosinophil# 0.17 X10^3/uL; Hematocrit 43.6 % (40-54); Hemoglobin 14.8 g/dL (13.0-16.5); Lymphocyte # 2.05 X10^3/ul (0.83-4.51); Lymphocyte % 35.8 % (19-41); Mean Corp Hgb Conc 33.9 g/dL (32-36); Mean Corpuscular Hgb 30.3 pg (27.0-32.0); Mean Corpuscular Volume 89.2 fL (80-94); Mean Platelet Vol. 10.1 fl (6.2-12.0); Monocyte# 0.64 X10^3/uL; Monocyte% 11.2 % (0-10); NRBC Flagged by Analyzer 0 % (0-5); Neutrophil # 2.81 X10^3/uL (2.7-7.7); Neutrophil % 49.1 % (47-70); Platelet Count 211 K/mm3 (150-450); RBC Distribution Width CV 13.2 % (11.6-14.6); RBC Distribution Width SD 43.3 fl (35.1-43.9); Red Blood Count 4.89 M/mm3 (4.6-6.2); White Blood Count 5.7 K/mm3 (4.4-11.0)
[2023-05-29 12:20] LABS: Anion Gap -1 (5-15); BUN 15 mg/dL (7-18); BUN/Creat Ratio 12.9 RATIO (10-20); Calcium,Total 8.7 mg/dL (8.5-10.1); Chloride 109 mmol/L (98-107); Creatinine, Serum 1.16 mg/dL (0.70-1.30); EST Glomerular Filtration Rate 71 mL/min (>60); Est Glom Filt Rate - Afr Amer 86 mL/min (>60); Estimated Creatinine Clearance 110.06 ml/min; Glucose 102 mg/dL (74-106); Potassium 3.5 mmol/L (3.5-5.1); Sodium Level 139 mmol/L (136-145)
[2023-05-29 13:12] LABS: Bacteria 0 SEEN /hpf (None Seen); Mucous, Urine 0 SEEN /hpf (<or=2+)
[2023-05-29 13:14] LABS: Color, Urine Yellow (Yellow); Glucose, Dipstick Normal (Normal); Ketone-Dipstick Negative (Negative); Leukocyte Esterase-Dipstick 25 /ul (Negative); Nitrite-Dipstick Negative (Negative); Occult Blood-Urine 250 /ul (Negative); Protein-Dipstick Negative (Negative); Specific Gravity, Urine 1.015 (1.002-1.030); Urine Bilirubin Dipstick Negative (Negative); Urine Clarity Sl. Cloudy (Clear); Urine Urobilinogen Normal (Normal); Urine pH 6.5 (5.0 - 8.0)
[2023-05-29 13:25] LABS: Calcium Oxalate Crystals Ur RARE /hpf (<or=2+); Red Blood Cells-Urine 25-50 SEEN /hpf (0-5); Squamous Epithelial Cells - UA 0-5 SEEN /hpf (0-5); White Blood Cells 0-5 SEEN /hpf (0-5)
[2023-05-29 14:01] VITALS: BP 123/85; PULSE 63; RESP 16; O2SAT 97
--- NOTE | 2023-05-29 14:03 | ED.RN ---
pt unable to find ride home after receiving IV morphine injection. per Dr. Villagran, pt okay to drive at 3pm. pt instructed to wait in waiting room until 3pm if unable to find a ride before then.
--- OUTSIDE RECORDS SUMMARY | 2023-05-29 15:34 | XMS RPT_ITS | CCD ---
Author Name Unknown Address [address] [place] [address] Organization [facility] Care Team Providers Care Deputy Court Clerk Name Role Phone Cosme Asencio Primary Care Provider RAINER CONNELL Attending Unavailable SERGIO, COSME Attending Unavailable SERGIO, COSME Primary Care Unavailable DOMINGO, MEERA Referring Unavailable DOMINGO, MEERA Attending Unavailable BRIDENTHAL, RACHEL Attending Unavailable SERGIO, COSME Primary Care Unavailable BRANDON BARRERA Referring Unavailable MAYAYO Attending Unavailable SERGIO, COSME Primary Care Unavailable SERGIO, COSME Attending Unavailable SERGIO, COSME Attending Unavailable SERGIO, COSME Primary Care Unavailable PETER BRISENO Referring Unavailable SERGIO, COSME Primary Care Unavailable DOMINGO, MEERA Referring Unavailable DOMINGO, MEERA Attending Unavailable SERGIO, COSME Primary Care Unavailable DOMINGO, MEERA Referring Unavailable DOMINGO, MEERA Attending Unavailable SERGIO, COSME Primary Care Unavailable DOMINGO, MEERA Referring Unavailable DOMINGO, MEERA Attending Unavailable SERGIO, COSME Primary Care Unavailable DOMINGO, MEERA Referring Unavailable DOMINGO, MEERA Attending Unavailable SERGIO, COSME Primary Care Unavailable PETER BRISENO Referring Unavailable PETER BRISENO Attending Unavailable SERGIO, COSME Referring Unavailable SERGIO, COSME Attending Unavailable SERGIO, COSME Primary Care Unavailable SERGIO, COSME Referring Unavailable DOMINGO, MEERA Attending Unavailable SERGIO, COSME Primary Care Unavailable PETER BRISENO Attending Unavailable SERGIO, COSME Referring Unavailable BRANDON BARRERA Attending Unavailable SERGIO, COSME Primary Care Unavailable BRIDENTHAL, RACHEL Attending Unavailable SERGIO, COSME Primary Care Unavailable BRIDENTHAL, RACHEL Attending Unavailable PETER CARRERA Attending Unavailable BRIDENTHAL, RACHEL Referring Unavailable BRIDENTHAL, RACHEL Referring Unavailable SERGIO, COSME Primary Care Unavailable BAVPETER LEWIS Referring Unavailable BAVJOSHUA, PETER Attending Unavailable SERGIO, COSME Primary Care Unavailable BERARDINO, HUNTER Referring Unavailable YARIEL JOELONY Attending Unavailable PETER CARRERA Referring Unavailable SERGIO, COSME Referring Unavailable RAINER CONNELL Attending Unavailable SERGIO, COSME Primary Care Unavailable GERMAN BETHEA Attending Unavailable SERGIO, COSME Primary Care Unavailable BAVJOSHUA, PETER Referring Unavailable BAVJOSHUA, PETER Attending Unavailable SERGIO, COSME Primary Care Unavailable BAVJOSHUA, PETER Referring Unavailable BAVIS, PETER Attending Unavailable SERGIO, COSME Primary Care Unavailable BAVJOSHUA, PETER Referring Unavailable BAVIS, PETER Attending Unavailable SERGIO, COSME Primary Care Unavailable SERGIO, COSME Attending Unavailable SERGIO, COSME Primary Care Unavailable DOMINGOMEERA VILLASENOR Referring Unavailable DOMINGO, MEERA Attending Unavailable BRANDON BARRERA Attending Unavailable BRANDON BARRERA Admitting Unavailable SERGIO, COSME Primary Care Unavailable BAVJOSHUA, PETER Referring Unavailable BAVJOSHUA, PETER Attending Unavailable SERGIO, COSME Primary Care Unavailable BAVJOSHUA, PETER Referring Unavailable BAVJOSHUA, PETER Attending Unavailable Sergio JIMENES, Cosme Denise Primary Care Provider James Skinner MD Primary Care Provider [phone] JAMES SKINNER MD Primary Care Physician [phone] JAMES SKINNER MD Primary Care Unavailable DISHA SENA DO Attending Unavailable JAMES SKINNER MD Primary Care Unavailable DISHA SENA DO Attending Unavailable JAMES SKINNER MD Primary Care Unavailable DISHA SENA DO Attending Unavailable JAMES SKINNER MD Primary Care Unavailable RAQUEL DELGADO, ARNALDO Attending U lesaable JAMES SKINNER Attending Unavailable JAMES SKINNER Primary Care Unavailable RENÉE GIBSON Attending Unavailable SERGIO, COSME VANESSA Primary Care Unavailabl e SERGIO, COSME VANESSA Primary Care Unavailabl e RENÉE GIBSON Referring Unavailable JAMES SKINNER Primary Care Unavailable RENÉE GIBSON Referring Unavailable RENÉE GIBSON Attending Unavailable JAMES SKINNER Primary Care Unavailable RENÉE GIBSON Referring Unavailable JAMES SKINNER Primary Care Unavailable JAMES SKINNER Primary Care Unavailable JAMES SKINNER Referring Unavailable JAMES SKINNER Primary Care Unavailable Allergies Allergy Classification Reported Allergen(s) Allergy Type Date of Onset Reaction(s) Facility (2 sources) Other Propensity to adverse reactions 03-27-2018 [facility] [place], [place] Medications Current Medications Medication Drug Class(es) Dates Sig (Normalized) Sig (Original) acetaminophen 325 mg / oxyCODONE hydrochloride 5 mg oral tablet (2 sources) Opioid Agonist Start: 04-08-2021 End: 04-11-2021 oxyCODONE-acetami nophen (PERCOCET) 5-325 MG per tablet Indications: Anal condyloma Take 1 tablet by mouth every 6 hours as needed for Pain for up to 3 days. Intended supply: 5 days. Take lowest dose possible to manage pain 12 tablet 0 04/08/2021 04/11/2021 Active ALPRAZolam 0.25 mg disintegrating oral tablet (1 source) Benzodiazepine Start: 04-08-2021 ALPRAZolam (NIRAVAM) dissolvable tablet 0.25 mg calcium chloride 0.0014 meq/ml / potassium chloride 0.004 meq/ml / sodium chloride 0.103 meq/ml / sodium lactate 0.028 meq/ml injectable solution (1 source) Start: 04-08-2021 lactated ringers infusion cranberry preparation 250 mg oral capsule (14 sources) Non-Standardized Food Allergenic Extract, Non-Standardized Plant Allergenic Extract Cranberry 250 MG capsule Take 2 tablets by mouth. 0 Active Completed/Discontinued Medications Medication Drug Class(es) Dates Sig (Normalized) Sig (Original) acetaminophen 500 mg oral tablet (1 source) Start: 04-08-2021 End: 04-08-2021 acetaminophen (TYLENOL) tablet 1,000 mg Problems Active Problems Problem Classification Problem Date Documented Date Episodic/Chronic Cardiac and circulatory congenital anomalies (20 sources) Bicuspid aortic valve; Translations: [Congenital insufficiency of aortic valve] Onset: 11-01-2019 11-01-2019 Chronic Disorders of lipid metabolism (20 sources) Mixed hyperlipidemia; Translations: [Mixed hyperlipidemia] Onset: 08-01-2019 08-01-2019 Chronic Esophageal disorders (20 sources) Gastroesophageal reflux disease without esophagitis; Translations: [Gastro-esophageal reflux disease without esophagitis] Onset: 08-01-2019 08-01-2019 Chronic Headache; including migraine (20 sources) Headache disorder; Translations: [Other headache syndrome] Onset: 06-27-2021 02-06-2022 Episodic Heart valve disorders (18 sources) Mitral valve prolapse; Translations: [Nonrheumatic mitral (valve) prolapse] Onset: 11-01-2019 11-01-2019 Chronic HIV infection (3 sources) Human immunodeficiency virus infection; Translations: [Human immunodeficiency virus [HIV] disease] Onset: 01-09-2023 01-11-2023 Chronic Immunizations and screening for infectious disease (4 sources) Exposure to sexually transmissible disorder; Translations: [Contact with and (suspected) exposure to infections with a predominantly sexual mode of transmission] Onset: 04-29-2023 01-02-2023 Episodic Mycoses (5 sources) Pityriasis versicolor; Translations: [Pityriasis versicolor] Onset: 10-29-2022 10-22-2022 Episodic Other aftercare (6 sources) Patient encounter status; Translations: [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] Onset: 12-16-2022 12-16-2022 Episodic Other congenital anomalies (20 sources) Marfan's syndrome; Translations: [Marfan's syndrome, unspecified] Onset: 11-01-2019 11-01-2019 Chronic Other congenital anomalies (2 sources) Marfan's syndrome, unspecified; Translations: [Marfan's syndrome, unspecified] Onset: 02-06-2022 Chronic Other connective tissue disease (3 sources) Pain in right leg; Translations: [Pain in right leg] Onset: 06-12-2022 Episodic Other nervous system disorders (3 sources) Anesthesia of skin; Translations: [Anesthesia of skin] Onset: 03-24-2022 Episodic Other screening for suspected conditions (not mental disorders or infectious disease) (6 sources) Encounter for screening for diabetes mellitus; Translations: [Encounter for screening for malignant neoplasm of prostate] Onset: 10-29-2022 Episodic Other skin disorders (6 sources) Eruption; Translations: [Rash and other nonspecific skin eruption] Onset: 10-17-2022 10-16-2022 Episodic Other skin disorders (2 sources) Rash and other nonspecific skin eruption; Translations: [Rash and other nonspecific skin eruption] Onset: 10-17-2022 Episodic Other skin disorders (1 source) Rash of genitalia; Translations: [Rash and other nonspecific skin eruption] 01-02-2023 Episodic Unclassified (2 sources) Post-op; Translations: [Post-op] Onset: 03-18-2022 Unclassified (1 source) Lumbar back pain; Translations: [Lumbar back pain] Onset: 05-21-2023 Past or Other Problems Problem Classification Problem Date Documented Da te Episodic/Chronic Abdominal hernia (16 sources) Umbilical hernia; Translations: [Umbilical hernia without obstruction or gangrene] Onset: 06-25-2021 Resolved: 06-11-2022 06-11-2022 Episodic Anal and rectal conditions (18 sources) Perianal lump; Translations: [Other specified diseases of anus and rectum] Onset: 04-11-2022 04-11-2022 Episodic Diabetes mellitus with complications (5 sources) Secondary diabetes mellitus; Translations: [Diabetes mellitus due to underlying condition with other diabetic neurological complication] Onset: 10-22-2022 Resolved: 10-22-2022 10-22-2022 Chronic Genitourinary symptoms and ill-defined conditions (14 sources) Dysuria; Translations: [Dysuria] Onset: 06-25-2021 02-06-2022 Episodic Hemorrhoids (20 sources) Hemorrhoids; Translations: [Unspecified hemorrhoids] Onset: 05-20-2022 06-30-2022 Episodic Mood disorders (13 sources) Mood disorders Onset: 06-11-2022 Resolved: 06-11-2022 06-11-2022 Other aftercare (1 source) Other alf (current) drug therapy; Translations: [Medication management] Onset: 12-16-2022 Episodic Other bone disease and musculoskeletal deformities (3 sources) Segmental and somatic dysfunction; Translations: [Segmental and somatic dysfunction of lower extremity] Onset: 09-05-2022 Episodic Other bone disease and musculoskeletal deformities (1 source) Segmental and somatic dysfunction of lower extremity; Translations: [Segmental and somatic dysfunction of lower extremity] Onset: 09-05-2022 Episodic Other inflammatory condition of skin (14 sources) Pruritus ani; Translations: [Pruritus ani] Onset: 06-25-2021 02-06-2022 Episodic Other nervous system disorders (14 sources) Numbness of foot ; Translations: [Anesthesia of skin] Onset: 03-24-2022 03-24-2022 Episodic Other nervous system disorders (2 sources) Paresthesia of skin; Translations: [Paresthesia of skin] Onset: 03-21-2022 Episodic Other non-traumatic joint disorders (3 sources) Pain in right hip joint; Translations: [Pain in right hip] Onset: 09-05-2022 Episodic Other non-traumatic joint disorders (1 source) Pain in right hip; Translations: [Pain in right hip] Onset: 09-05-2022 Episodic Otitis media and related conditions (14 sources) Dysfunction of bilateral eustachian tubes; Translations: [Other specified disorders of Eustachian tube, bilateral] Onset: 07-12-2021 02-06-2022 Episodic Spondylosis; intervertebral disc disorders; other back problems (11 sources) Lumbar radiculopathy; Translations: [Radiculopathy, lumbar region] Onset: 08-02-2022 Episodic Syncope (14 sources) Near syncope; Translations: [Syncope and collapse] Onset: 06-27-2021 02-06-2022 Episodic Viral infection (20 sources) Anal warts; Translations: [Anogenital (venereal) warts] Onset: 04-08-2021 Episodic Results Test Name Value Interpretation Reference Range Facil ity Vital Signs Date Time Vital Sign Value Performing Clinician Faci lity 01-02-2023 09:25-0400 Body weight 101.15 kg James Skinner MD Work Phone: [facility] 01-02-2023 09:25-0400 Diastolic blood pressure 80 mm[Hg] James Skinner MD Work Phone: [facility] 01-02-2023 09:25-0400 Heart rate 74 /min James Skinner MD Work Phone: [facility] 01-02-2023 09:25-0400 Respiratory rate 12 /min James Skinner MD Work Phone: [facility] 01-02-2023 09:25-0400 Systolic blood pressure 118 mm[Hg] James Skinner MD Work Phone: [facility] 12-16-2022 07:10-0400 Body height 192 cm Renée Gibson PA-C Work Phone: [facility] 12-16-2022 07:10-0400 Body temperature 97.59 [degF] Renée Gibson PA-C Work Phone: [facility] 12-16-2022 07:10-0400 Body weight 103.87 kg Renéepavithra Gibson PA-C Work Phone: [facility] 12-16-2022 07:10-0400 Diastolic blood pressure 62 mm[Hg] Renée Gibson PA-C Work Phone: [facility] 12-16-2022 07:10-0400 Heart rate 78 /min Renée Gibson PA-C Work Phone: [facility] 12-16-2022 07:10-0400 Respiratory rate 18 /min Renée Gibson PA-C Work Phone: [facility] 12-16-2022 07:10-0400 Systolic blood pressure 100 mm[Hg] Renée Gibson PA-C Work Phone: [facility] 10-22-2022 09:05-0400 Body mass index (BMI) [Ratio] 27.68 kg/m2 Rachel Bridenthal MANAGER [employer]IV[employer] - FIRST LINE SUPERVISOR Work Phone: [facility] 10-22-2022 09:05-0400 Body temperature 98.2 [degF] Rachel Bridenthal MANAGER UNIVERSAL - FIRST LINE SUPERVISOR Work Phone: [facility] 10-22-2022 09:05-0400 Body weight 105.87 kg Rachel Bridenthal MANAGER UNIVERSAL - FIRST LINE SUPERVISOR Work Phone: [facility] 10-22-2022 09:05-0400 Diastolic blood pressure 72 mm[Hg] Rachel Bridenthal MANAGER UNIVERSAL - FIRST LINE SUPERVISOR Work Phone: [facility] 10-22-2022 09:05-0400 Heart rate 74 /min Rachel Bridenthal MANAGER [employer]IVERSAL - FIRST LINE SUPERVISOR Work Phone: [facility] 10-22-2022 09:05-0400 Respiratory rate 16 /min Rachel Bridenthal MANAGER UNIVERSAL - FIRST LINE SUPERVISOR Work Phone: [facility] 10-22-2022 09:05-0400 SaO2% (BldA) [Mass fraction] 99 % Rachel Bridenthal MANAGER [employer]IVERSAL - FIRST LINE SUPERVISOR Work Phone: [facility] 10-22-2022 09:05-0400 Systolic blood pressure 113 mm[Hg] Rachel Bridenthal MANAGER [employer]IVERSAL - FIRST LINE SUPERVISOR Work Phone: [facility] 10-16-2022 14:55-0400 Body mass index (BMI) [Ratio] 28.08 kg/m2 Rachel Bridenthal MANAGER [employer]IV[employer]AL - FIRST LINE SUPERVISOR Work Phone: [facility] 10-16-2022 14:55-0400 Body temperature 98.2 [degF] Rachel Bridenthal MANAGER [employer]IV[employer] - [employer] LINE SUPERVISOR Work Phone: [facility] 10-16-2022 14:55-0400 Body weight 107.41 kg Rachel Bridenthal MANAGER UNIVERS[employer] - [employer] LINE SUPERVISOR Work Phone: [facility] 10-16-2022 14:55-0400 Diastolic blood pressure 74 mm[Hg] Rachel Bridenthal MANAGER UNIVERSAL - FIRST LINE SUPERVISOR Work Phone: [facility] 10-16-2022 14:55-0400 Heart rate 75 /min Rachel Bridenthal MANAGER UNIVERSAL - FIRST LINE SUPERVISOR Work Phone: [facility] 10-16-2022 14:55-0400 Respiratory rate 20 /min Rachel Bridenthal MANAGER UNIVERS[employer] - FIRST LINE SUPERVISOR Work Phone: [facility] 10-16-2022 14:55-0400 Systolic blood pressure 111 mm[Hg] Rachel Bridenthal MANAGER UNIVERSAL - FIRST LINE SUPERVISOR Work Phone: [facility] 04-08-2021 16:30-0500 Diastolic blood pressure 70 mm[Hg] Yayo Cid MD Work Phone: [facility] 04-08-2021 16:30-0500 Heart rate 85 /min Yayo Cid MD Work Phone: [facility] 04-08-2021 16:30-0500 Respiratory rate 16 /min Yayo Cid MD Work Phone: [facility] 04-08-2021 16:30-0500 SaO2% (BldA) [Mass fraction] 99 % Yayo Cid MD Work Phone: [facility] 04-08-2021 16:30-0500 Systolic blood pressure 130 mm[Hg] Yayo Cid MD Work Phone: [facility] 04-08-2021 16:00-0500 Body temperature 97 [degF] Yayo Cid MD Work Phone: [facility] 04-08-2021 11:53-0500 Body height 195.6 cm Yayo Cid MD Work Phone: [facility] 04-08-2021 11:53-0500 Body mass index (BMI) [Ratio] 28.93 kg/m2 Yayo Cid MD Work Phone: [facility] 04-08-2021 11:53-0500 Body weight 110.68 kg Yayo Cid MD Work Phone: [facility] Encounters Encounter Date Encounter Type Care Provider Facility Start: 05-21-2023 End: 05-21-2023 ambulatory RENÉE GIBSON Facility:[facility] Start: 05-12-2023 End: 05-13-2023 ambulatory RENÉE GIBSON Facility:[facility] Start: 04-29-2023 End: 05-04-2023 ambulatory JAMES SKINNER MD Facility:A Start: 03-20-2023 End: 03-21-2023 ambulatory JAMES SKINNER MD Facility:[facility] Start: 03-20-2023 End: 03-20-2023 Patient encounter procedure DISHA MUNSONKRYSTA DO [facility] Start: 02-18-2023 End: 02-19-2023 ambulatory JAMES SKINNER MD Facility:[facility] Start: 02-14-2023 End: 02-15-2023 ambulatory JAMES SKINNER MD Facility:[facility] Start: 01-09-2023 Chart abstracting James mcintosh MD Work Phone: [facility] Procedures Date Procedure Procedure Detail Performing Clinician Start: 10-29-2022 Lipid 1996 panel - S khurram or Plasma Hunter Joel Work Phone: Start: 10-27-2022 Adult depression scr eening assessment Hunter Joel Work Phone: Start: 10-16-2022 Complete blood count with white cell differential, automated Rachel Huntkeshawn MANAGER [employer]IV[employer] - [employer] LINE SUPERVISOR Work Phone: Start: 10-16-2022 Comprehensive metabo lic panel Rachel Bridkeshawn MANAGER [employer]IV[employer] - [employer] LINE SUPERVISOR Work Phone: Start: 06-11-2022 Adult depression scr eening assessment Peter Briseno MD Work Phone: Start: 12-13-2021 Lipid 1996 panel - S khurram or Plasma Jakub Schaeffer TURNER MACHINE OPERATOR Start: 04-08-2021 OPERATIVE REPORT 3m Sca nning Start: 04-08-2021 End: 04-08-2021 Colonoscopy 3m Scanning Start: 12-20-2019 Echo tthrc r-t 2d w/wom-mode compl spec&colr d Cosme Asencio Work Phone: Start: 11-01-2019 Radex hips bilateral with pelvis minimum 5 views Cosme Asencio Work Phone: Plan of Treatment Date Care Activity Detail Author Start: 04-08-2031 Screening for malign ant neoplasm of colon [facility] Start: 10-30-2027 Lipid 1996 panel - S khurram or Plasma Lipid Screening [facility] Start: 10-30-2027 Lipid panel Lipid Panel [facility] Start: 10-30-2027 LIPID SCREEN LIPID SCREEN [facility] Start: 12-13-2026 Lipid panel Lipid Panel [facility] Start: 01-09-2026 Diabetes Screening Diabetes Screenin [facility] Start: 10-29-2025 Diabetes mellitus screening Diabetes Screening [facility] Start: 10-29-2025 DIABETES SCREEN DIABETES SCREEN [facility] Start: 10-29-2025 Diabetes Screening Diabetes Screenin [facility] Start: 10-28-2023 Depression Screening Depression Scre ening [facility] Start: 10-28-2023 MMR Vaccines (1 of 1 - Standard series) MMR Vaccines (1 of 1 - Standard series) [facility] Immunizations Immunization Date Immunization Notes Care Provider Fa apoorva 04-17-2021 Moderna SARS-CoV-2 [facility] 03-15-2021 Moderna SARS-CoV-2 Vaccination [facility] Payers Date Payer Category Payer Self-pay 2021 Unknown [id number] 2020 Unknown [id number] 2016 Unknown BCBS [place] P PO xxxxxxxxxxxx 2016-Present [address] [place] [address] xxxxxxxxxxxx [id number] 2016 Unknown [place] P PO [id number] 2016-Present [address] [place] [address] [id number] 1973 Unknown [id number] 1973 Unknown [id number] 1973 Unknown [id number] Unknown [id number] Social History Date Type Detail Facility Start: 11-01-2019 End: 12-12-2022 Tobacco smoking status NHIS Never smoker [facility] Start: 11-01-2019 End: 01-11-2023 Alcohol intake Current drinker of alcohol (finding) [place] Start: 12-16-2018 History SDOH Physica l Activity DPW 0 [place] Start: 12-16-2018 End: 10-12-2020 History SDOH Financial 4 [place] Start: 12-16-2018 End: 03-18-2022 History SDOH Food Worry 1 [place] Start: 12-16-2018 End: 03-18-2022 History SDOH Transport Med 2 [place] Start: 12-16-2018 Alcohol Comment occasionally Lena Valdivia [place], [place] Start: 1975 Sex Assigned At Not on file M [place], [place] Exposure to SARS-CoV -2 (event) Unable to assess [place] Start: 11-22-2019 End: 12-12-2022 Tobacco use and exposure Never used [place] Start: 06-20-2022 End: 10-29-2022 Exposure to SARS-CoV-2 (event) Not sure [place] Start: 04-08-2021 End: 01-02-2023 Alcohol intake [employer] Work Phone: Start: 10-12-2020 History [facility] l [facility] Work Phone: Start: 1975 Sex Assigned At Male S [place] Start: 03-18-2022 History SDOH Financial 5 [facility] Start: 10-16-2022 End: 01-02-2023 Tobacco use panel [facility] How hard is it for y ou to pay for the very basics like food, housing, medical care, and heating Not hard at all [facility] (I/We) worried wheth er (my/our) food would run out before (I/we) got money to buy more. Never true [facility] Start: 02-13-2022 Gender identity Identifies as male gender (finding) [facility] Start: 12-16-2022 Alcohol [facility] Tobacco smoking status No Smoking Status Entered [facility] Medical Equipment Procedure Code Equipment Code Equipment Origin al Text Equipment Identifier Dates Mesh Surgical Sy mbotex Polyester Collagen 3d Round L3.3 Mm X W2.3 Mm Od9 Cm 2 Side Composite Monofilament Bioabsorbable Film Sterile Disposable [place] - [id number] Start: 03-05-2022 Clinical Notes 04-08-2021 to 05-21-2023 Russel Wheat LPN - 01/09/2023 8:11 AM EDTTelephone Encounter - Alba Mcneill RN - 01/06/2023 11:09 AM EDTTelephone Encounter - James Skinner MD - 01/06/2023 8:29 AM EDTPatient Instructions Note Date & Type Note Facility 05-21-2023 Note HNO ID: [id number] Author: CORONA WILSON RT(Michael) Service: Radiology Author Type: Technologist Type: Progress Notes Filed: 05/21/2023 08:58 Note Text: Radiology Service Progress Note PATIENT NAME: Ginny Carson DATE OF SERVICE: May 21, 2023 TIME: 8:47 AM PATIENT IDENTITY VERIFICATION COMPLETED USING TWO (2) IDENTIFIERS: Name and Date of confirmed by patient verbally. FALL SCREENING: Has the patient had 2 falls in the last year or 1 fall with injury or currently using an Ambulatory Assistive Device (Walker, Cane, Wheelchair, Crutches, etc.)? No PATIENT GENDER DATA: Male PATIENT RELEVANT IMPLANT DATA REVIEWED: Not Applicable RADIOLOGY DEPARTMENT: General X-ray: Exam(s) Completed: Spine X-Ray(s): Lumbar AP / LAT / L5-S1 PERIPHERAL IV DATA: Not applicable SIGNED BY: RT Ronnell(R) May 21, 2023 8:47 AM [facility] 05-21-2023 Note HNO ID: [id number] Author: RENÉE GIBSON PA-C Service: ? Author Type: Physician [employer] Worker Type: Progress Notes Filed: 05/21/2023 09:23 Note Text: Chief Complaint Patient presents with: Pain: Right thigh HPI Ginny Carson is a 47 year old male who presents here today for Chronic Medical Conditions and acute concerns. Patient with hx of hyperlipidemia, Headaches, GERD, HIV. Still seeing ID and being treated. Concerns: Thigh pain. Ongoing for a couple months. Was checked out by vascular specialist and states that everything was normal. Patient reports no injury. Does have chronic low back pain. Seeing chiropractor. Pain is constant. Gets worse randomly. Reports a firey/burning sensation. 2. Having b/l ear pain. Once a month. No popping or crackling sounds. Past medical history, appointments, medications, allergies reviewed. Previous Medical History PAST MEDICAL HISTORY Diagnosis Date Abdominal hernia HIV (human immunodeficiency virus infection) ([facility]) 01/11/2023 Seeing ID: Dr. Allen [place] Inguinal hernia Marfan syndrome Previous Surgical History PAST SURGICAL HISTORY Procedure Laterality Date HERNIA REPAIR HX INGUINAL HERNIA REPAIR HX Family History FAMILY HISTORY Adopted: Yes Family history unknown: Yes Patient Allergies ALLERGIES No Known Allergies Current Medications Current Outpatient Medications on File Prior to Visit Medication Sig MULTI-VITAMIN ORAL Take by mouth once daily. CRANBERRY ORAL Take by mouth once daily. yogpeqmvanh-jgubllzpiznfa-pzttngg ir alafenamide (BIKTARVY) 50-200-25 mg per tablet Take 1 tablet by mouth once daily. Per ID: Dr. Allen tacrolimus (PROTOPIC) 0.1 % ointment inulin (FIBER GUMMIES ORAL) Take by mouth as directed. omeprazole (PRILOSEC) 40 mg capsule rosuvastatin (CRESTOR) 10 mg tablet gabapentin (NEURONTIN) 100 mg capsule Take one before bed for 3-5 days then go to taking one twice a day for 3-5 days then go to one three times a day. No current facility-administered medications on file prior to visit. Social History Social History Tobacco Use Smoking status: Never Smokeless tobacco: Never Vaping Use Vaping Use: Never used Substance Use Topics Alcohol use: Yes Comment: occ Drug use: Never Review of Symptoms REVIEW OF SYSTEMS GENERAL: No weight loss, malaise or fevers NECK: Negative for lumps, goiter, pain and significant neck swelling RESPIRATORY: Negative for cough, hemoptysis, wheezing, COPD, dyspnea or shortness of breath CARDIOVASCULAR: Negative for chest pain, leg swelling, hypertension, CHF or palpitations NEURO: No history of headaches, syncope, paralysis, seizures or tremors SEE HPI EXAM: BP 96/76 (BP Site: Left Arm, BP Position: Sitting, BP Cuff Size: Large Adult) Pulse 75 Temp 36.6 ?C (97.9 ?F) Resp 18 Wt 114.8 kg (253 lb) BMI 31.13 kg/m? Last 3 Encounter Wt Readings: Date: Wt: 05/21/2023 114.8 kg (253 lb) 01/02/2023 101.2 kg (223 lb) 12/16/2022 103.9 kg (229 lb) General Appearance: Well appearing, alert, in no acute distress, well-hydrated, well nourished.. Ears: External ears normal, canals clear, TMs pearly oneil. Neck: Supple, no adenopathy; thyroid symmetric, normal size, no bruits. Lungs: Lungs clear to auscultation. No wheezing, rhonchi, rales.. Heart: RRR without murmur, gallop, or rubs. No ectopy. Extremities: No deformities, edema, skin discoloration, clubbing or cyanosis. Good capillary refill. . Peripheral Pulses: Normal. MSK: back exam wnl. SLR negative. + sensitivity to touch of upper thigh. . Health Maintenance List Hepatitis B Vaccine(1 of 3 - 3-dose series) Never done Meningococcal Conjugate Vaccine(1 - Risk 2-dose series) Never done Pneumococcal Vaccine(1 of 2 - PCV) Never done MMR Vaccine(1 of 2 - Risk 2-dose series) Never done DTaP,Tdap,Td Vaccine(1 - Tdap) Never done Shingrix Vaccine(1 of 2) Never done Colorectal Cancer Screening Never done Covid-19 Vaccine( - season) due on 03/27/2023 Depression Assessment due on 04/26/2024 Hepatitis A Vaccine(2 of 2 - Risk 2-dose series) due on 08/21/2023 Diabetes Screening due on 05/12/2026 Lipid Screening due on 05/12/2028 Influenza Vaccine Completed Hepatitis C Screening Completed HPV Vaccine Aged Out Data reviewed Component Latest Ref Rng AND Units 05/12/2023 Glucose 74 - 99 mg/dL 114 (H) BUN 9 - 24 mg/dL 15 Creatinine 0.73 - 1.22 mg/dL 1.24 (H) Sodium 136 - 144 mmol/L 140 Potassium 3.7 - 5.1 mmol/L 3.8 Chloride 97 - 105 mmol/L 107 (H) CO2 22 - 30 mmol/L 24 Anion Gap 9 - 18 mmol/L 9 Calcium 8.5 - 10.2 mg/dL 9.6 eGFR >=60 mL/min/1.73mA? 71 Total Cholesterol, Nonfasting <200 mg/dL 158 Triglycerides, Nonfasting <150 mg/dL 74 HDL Cholesterol, Nonfasting >39 mg/dL 43 LDL Cholesterol, Nonfasting <100 mg/dL 100 (H) Non HDL Cholesterol, Nonfasting <130 mg/dL 115 VLDL Cholesterol, Nonfasting <30 mg/dL 15 Total Chol/HDL Ratio, Nonfasti (more content not included)... [facility] 03-20-2023 Evaluation + Plan note Diagnostic Tests [facility] Send out (Blood Specimens) 03/20/23 [facility] 01-09-2023 Note HNO ID: [id number] Author: Russel Wheat LPN Service: ? Author Type: ? Type: Progress Notes Filed: 01/11/2023 3:40 PM Note Text: Scan on 01/08/2023 4:28 PM by Provider, Wanda, PA-C: Miscellaneous Clinical Documents [facility] 01-09-2023 History of Present illness Narrative Scan on 01/08/2023 4:28 PM by Provider, Wanda PA-C: Miscellaneous Clinical Documents documented in this encounter [facility] 01-06-2023 Miscellaneous Notes Faxed results as instructed by pcp below. Please fax Hepatitis panel and HIV 1/[address] Allen's office at [phone] attn [place]. Spoke with patient and reviewed result and advised him to keep appt with ID this and that we would fax results to that office. Patient phoned to report he saw his HIV results last night and states he is freaking out. Asking pcp to review and advise him on those results. Reports you can call him before 10 am this morning (he is working out of state, and will be back in [place] tomorrow) After that he will be at work and cannot discuss this in front of his coworker. States he will be at home all day tomorrow but hoping pcp can call him before 10 am this morning. [phone]. Reports his ID provider is Dr. Allen. Reports Dr. Allen has an office in [place], but patient had to see him in the [place] office. Reports he has an appt with him this Thurs at 2 pm. Please find out from patient who the infectious disease provider he is seeing. documented in this encounter [facility] 01-05-2023 Miscellaneous Notes Patient notified and voiced understanding. Baylee Teixeira MA Let patient know Hep A, B and C were all negative. documented in this encounter [facility] 01-02-2023 Note HNO ID: [id number] Author: James Skinner MD Service: ? Author Type: Physician Type: Progress Notes Filed: 01/03/2023 8:41 AM Note Text: Chief Complaint No chief complaint on file. HPI Ginny Carson is a 47 year old male who presents here today for scrotum pain x 7 days. Pain is right on the scrotal sac. Patient was seen at the [facility] and treated for herpes and waiting on labs. Only had swab for herpies and blood for syphilis. recently diagnosed with syphilis Patient visit in November he noted he was being treated for a rash and an antibiotic for a rash in his groin that he has had for almost a year. Patient was going to follow up with derm. Reports hx of Marfan's syndrome and a bicuspid aortic valve. Also takes prilosec daily for GERD. Past medical history, appointments, medications, allergies reviewed. Previous Medical History PAST MEDICAL HISTORY Diagnosis Date Abdominal hernia Inguinal hernia Marfan syndrome Previous Surgical History PAST SURGICAL HISTORY Procedure Laterality Date HERNIA REPAIR HX INGUINAL HERNIA REPAIR HX Family History FAMILY HISTORY Adopted: Yes Family history unknown: Yes Patient Allergies ALLERGIES No Known Allergies Current Medications Current Outpatient Medications on File Prior to Visit Medication Sig tacrolimus (PROTOPIC) 0.1 % ointment inulin (FIBER GUMMIES ORAL) Take by mouth as directed. clobetasol (TEMOVATE) 0.05 % cream (Patient not taking: Reported on 12/16/2022) omeprazole (PRILOSEC) 40 mg capsule rosuvastatin (CRESTOR) 10 mg tablet No current facility-administered medications on file prior to visit. Social History Social History Tobacco Use Smoking status: Never Smokeless tobacco: Never Vaping Use Vaping Use: Never used Substance Use Topics Alcohol use: Yes Comment: occ Drug use: Never Review of Symptoms REVIEW OF SYSTEMS See HPI EXAM: BP 118/80 Pulse 74 Resp 12 Wt 101.2 kg (223 lb) BMI 27.44 kg/m? General Appearance: Well appearing, alert, in no acute distress, well-hydrated, well nourished.. Skin: on the left side of the scrotum he has some erythema. Small blisters and healing skin sores with scabbing. No purulent drainage. Looks like herpies. Health Maintenance List HEPATITIS B(1 of 3 - 3-dose series) Never done HEPATITIS C SCREENING Never done HIV SCREENING Never done DTAP,TDAP,TD(1 - Tdap) Never done COLORECTAL CANCER SCREENING Never done COVID-19 VACCINE(3 - Moderna series) due on 06/12/2021 DEPRESSION ASSESSMENT Never done INFLUENZA(1) due on 12/26/2022 DIABETES SCREEN due on 10/29/2025 LIPID SCREEN due on 10/30/2027 Data reviewed A/P ASSESSMENT/PLAN: 1. STD exposure - ICD9: V01.6, ICD10: Z20.2 (primary diagnosis) Check - GONORRHEA/CHLAMYDIA NAAT - HIV 1 2 COMBO(AG/AB),WITH REFLEX TO DIFFERENTIATION - HEP ACUTE PANEL/RNA - TRICHOMONAS VAGINALIS NAAT 2. Rash of genital area - ICD9: 782.1, ICD10: R21 - appears to be herpes. Cont the acyclovir and add medrol dose pack and gabapentin as below. Requested Prescriptions Signed Prescriptions Disp Refills methylPREDNISolone (MEDROL, GELA,) 4 mg Dose-Pack 21 tablet 0 Sig: Follow dosing instructions, take with food. gabapentin (NEURONTIN) 100 mg capsule 90 capsule 1 Sig: Take one before bed for 3-5 days then go to taking one twice a day for 3-5 days then go to one three times a day. James Skinner MD [facility] 01-02-2023 History of Present illness Narrative Chief Complaint No chief complaint on file. HPI Ginny Carson is a 47 year old male who presents here today for scrotum pain x 7 days. Pain is right on the scrotal sac. Patient was seen at the [facility] and treated for herpes and waiting on labs. Only had swab for herpies and blood for syphilis. recently diagnosed with syphilis Patient visit in November he noted he was being treated for a rash and an antibiotic for a rash in his groin that he has had for almost a year. Patient was going to follow up with derm. Reports hx of Marfan's syndrome and a bicuspid aortic valve. Also takes prilosec daily for GERD. Past medical history, appointments, medications, allergies reviewed. Previous Medical History PAST MEDICAL HISTORY Diagnosis Date Abdominal hernia Inguinal hernia Marfan syndrome Previous Surgical History PAST SURGICAL HISTORY Procedure Laterality Date HERNIA REPAIR HX INGUINAL HERNIA REPAIR HX Family History FAMILY HISTORY Adopted: Yes Family history unknown: Yes Patient Allergies ALLERGIES No Known Allergies Current Medications Current Outpatient Medications on File Prior to Visit Medication Sig tacrolimus (PROTOPIC) 0.1 % ointment inulin (FIBER GUMMIES ORAL) Take by mouth as directed. clobetasol (TEMOVATE) 0.05 % cream (Patient not taking: Reported on 12/16/2022) omeprazole (PRILOSEC) 40 mg capsule rosuvastatin (CRESTOR) 10 mg tablet No current facility-administered medications on file prior to visit. Social History Social History Tobacco Use Smoking status: Never Smokeless tobacco: Never Vaping Use Vaping Use: Never used Substance Use Topics Alcohol use: Yes Comment: occ Drug use: Never Review of Symptoms REVIEW OF SYSTEMS See HPI EXAM: BP 118/80 Pulse 74 Resp 12 Wt 101.2 kg (223 lb) BMI 27.44 kg/m General Appearance: Well appearing, alert, in no acute distress, well-hydrated, well nourished.. Skin: on the left side of the scrotum he has some erythema. Small blisters and healing skin sores with scabbing. No purulent drainage. Looks like herpies. Health Maintenance List HEPATITIS B(1 of 3 - 3-dose series) Never done HEPATITIS C SCREENING Never done HIV SCREENING Never done DTAP,TDAP,TD(1 - Tdap) Never done COLORECTAL CANCER SCREENING Never done COVID-19 VACCINE(3 - Moderna series) due on 06/12/2021 DEPRESSION ASSESSMENT Never done INFLUENZA(1) due on 12/26/2022 DIABETES SCREEN due on 10/29/2025 LIPID SCREEN due on 10/30/2027 Data reviewed A/P ASSESSMENT/PLAN: 1. STD exposure - ICD9: V01.6, ICD10: Z20.2 (primary diagnosis) Check - GONORRHEA/CHLAMYDIA NAAT - HIV 1 2 COMBO(AG/AB),WITH REFLEX TO DIFFERENTIATION - HEP ACUTE PANEL/RNA - TRICHOMONAS VAGINALIS NAAT 2. Rash of genital area - ICD9: 782.1, ICD10: R21 - appears to be herpes. Cont the acyclovir and add medrol dose pack and gabapentin as below. Requested Prescriptions Signed Prescriptions Disp Refills methylPREDNISolone (MEDROL, GELA,) 4 mg Dose-Pack 21 tablet 0 Sig: Follow dosing instructions, take with food. gabapentin (NEURONTIN) 100 mg capsule 90 capsule 1 Sig: Take one before bed for 3-5 days then go to taking one twice a day for 3-5 days then go to one three times a day. James Skinner MD documented in this encounter [facility] 12-16-2022 Note HNO ID: [id number] Author: Renée Gibson PA-C Service: ? Author Type: Physician [employer] Worker Type: Progress Notes Filed: 12/16/2022 10:34 AM Note Text: Chief Complaint Patient presents with: Establish Care HPI Ginny Carson is a 47 year old male who presents here today for establishing care. . Patient here today to establish care. Patient's is also a patient of Dr. Skinner. He is previously patient of Dr. Asencio. Reports hx of Marfan's syndrome and a bicuspid aortic valve. Also takes prilosec daily for GERD. Has seen cardiology in past prior to surgeries but was told everything was normal. He is on crestor to help decrease risk of heart disease due to marfans. He recently had labs completed by previous PCP and all came back normal. Currently on a cream and an antibiotic for a rash in his groin that he has had for almost a year. Has follow up with derm tomorrow. Past medical history, appointments, medications, allergies reviewed. Previous Medical History PAST MEDICAL HISTORY Diagnosis Date Abdominal hernia Inguinal hernia Marfan syndrome Previous Surgical History PAST SURGICAL HISTORY Procedure Laterality Date HERNIA REPAIR HX INGUINAL HERNIA REPAIR HX Family History FAMILY HISTORY Adopted: Yes Family history unknown: Yes Patient Allergies ALLERGIES No Known Allergies Current Medications Current Outpatient Medications on File Prior to Visit Medication Sig tacrolimus (PROTOPIC) 0.1 % ointment omeprazole (PRILOSEC) 40 mg capsule sulfamethoxazole-trimethoprim (BACTRIM DS) 800-160 mg per tablet Take 1 tablet by mouth twice daily for 7 days. rosuvastatin (CRESTOR) 10 mg tablet inulin (FIBER GUMMIES ORAL) Take by mouth as directed. clobetasol (TEMOVATE) 0.05 % cream (Patient not taking: Reported on 12/16/2022) cefdinir (OMNICEF) 300 mg capsule (Patient not taking: Reported on 12/16/2022) No current facility-administered medications on file prior to visit. Social History Social History Tobacco Use Smoking status: Never Smokeless tobacco: Never Vaping Use Vaping Use: Never used Substance Use Topics Alcohol use: Yes Comment: occ Drug use: Never Review of Symptoms REVIEW OF SYSTEMS GENERAL: No weight loss, malaise or fevers NECK: Negative for lumps, goiter, pain and significant neck swelling RESPIRATORY: Negative for cough, hemoptysis, wheezing, COPD, dyspnea or shortness of breath CARDIOVASCULAR: Negative for chest pain, leg swelling, hypertension, CHF or palpitations NEURO: +headaches chronically. Overall stable. No history of syncope, paralysis, seizures or tremors EXAM: BP 100/62 (BP Site: Left Arm, BP Position: Sitting, BP Cuff Size: Large Adult) Pulse 78 Temp 36.4 ?C (97.6 ?F) Resp 18 Ht 192 cm (6' 3.59 ) Wt 103.9 kg (229 lb) BMI 28.18 kg/m? General Appearance: Well appearing, alert, in no acute distress, well-hydrated, well nourished.. Neck: Supple, no adenopathy; thyroid symmetric, normal size, no bruits. Lungs: Lungs clear to auscultation. No wheezing, rhonchi, rales.. Heart: RRR without murmur, gallop, or rubs. No ectopy. Extremities: No deformities, edema, skin discoloration, clubbing or cyanosis. Good capillary refill. . Peripheral Pulses: Normal. Health Maintenance List HEPATITIS B(1 of 3 - 3-dose series) Never done HEPATITIS C SCREENING Never done HIV SCREENING Never done DTAP,TDAP,TD(1 - Tdap) Never done COLORECTAL CANCER SCREENING Never done COVID-19 VACCINE(3 - Moderna series) due on 06/12/2021 DEPRESSION ASSESSMENT Never done INFLUENZA(1) due on 12/26/2022 DIABETES SCREEN due on 10/29/2025 LIPID SCREEN due on 10/30/2027 Data reviewed See labs in epic. ASSESSMENT/PLAN: 1. Marfan's disease - ICD9: 759.82, ICD10: Q87.40 (primary diagnosis) Will monitor. No chronic issues 2. GERD without esophagitis - ICD9: 530.81, ICD10: K21.9 - Discussed lifestyle modifications including limiting caffeine, no meals three hours before sleep, and head of bed elevation - Continue treatment - BASIC METABOLIC PNL 3. Hyperlipidemia, mixed - ICD9: 272.2, ICD10: E78.2 - Controlled - Continue current medications - Counseled on healthy diet and regular exercise - LIPID PANEL, NONFASTING 4. Screening for diabetes mellitus - ICD9: V77.1, ICD10: Z13.1 Recent a1c was normal 5. Encounter for lipid screening for cardiovascular disease - ICD9: V77.91, V81.2, ICD10: Z13.220, Z13.6 6. Chronic mixed headache syndrome - ICD9: 339.89, ICD10: G44.89 stable 7. Medication management - ICD9: V58.69, ICD10: Z79.899 - MAGNESIUM BLD Follow up in 6 months with labs prior. Physical is due next October Renée Gibson PA-C [facility] 12-16-2022 History of Present illness Narrative Chief Complaint Patient presents with: Establish Care HPI Ginny Carson is a 47 year old male who presents here today for establishing care. . Patient here today to establish care. Patient's is also a patient of Dr. Skinner. He is previously patient of Dr. Asencio. Reports hx of Marfan's syndrome and a bicuspid aortic valve. Also takes prilosec daily for GERD. Has seen cardiology in past prior to surgeries but was told everything was normal. He is on crestor to help decrease risk of heart disease due to marfans. He recently had labs completed by previous PCP and all came back normal. Currently on a cream and an antibiotic for a rash in his groin that he has had for almost a year. Has follow up with derm tomorrow. Past medical history, appointments, medications, allergies reviewed. Previous Medical History PAST MEDICAL HISTORY Diagnosis Date Abdominal hernia Inguinal hernia Marfan syndrome Previous Surgical History PAST SURGICAL HISTORY Procedure Laterality Date HERNIA REPAIR HX INGUINAL HERNIA REPAIR HX Family History FAMILY HISTORY Adopted: Yes Family history unknown: Yes Patient Allergies ALLERGIES No Known Allergies Current Medications Current Outpatient Medications on File Prior to Visit Medication Sig tacrolimus (PROTOPIC) 0.1 % ointment omeprazole (PRILOSEC) 40 mg capsule sulfamethoxazole-trimethoprim (BACTRIM DS) 800-160 mg per tablet Take 1 tablet by mouth twice daily for 7 days. rosuvastatin (CRESTOR) 10 mg tablet inulin (FIBER GUMMIES ORAL) Take by mouth as directed. clobetasol (TEMOVATE) 0.05 % cream (Patient not taking: Reported on 12/16/2022) cefdinir (OMNICEF) 300 mg capsule (Patient not taking: Reported on 12/16/2022) No current facility-administered medications on file prior to visit. Social History Social History Tobacco Use Smoking status: Never Smokeless tobacco: Never Vaping Use Vaping Use: Never used Substance Use Topics Alcohol use: Yes Comment: occ Drug use: Never Review of Symptoms REVIEW OF SYSTEMS GENERAL: No weight loss, malaise or fevers NECK: Negative for lumps, goiter, pain and significant neck swelling RESPIRATORY: Negative for cough, hemoptysis, wheezing, COPD, dyspnea or shortness of breath CARDIOVASCULAR: Negative for chest pain, leg swelling, hypertension, CHF or palpitations NEURO: +headaches chronically. Overall stable. No history of syncope, paralysis, seizures or tremors EXAM: BP 100/62 (BP Site: Left Arm, BP Position: Sitting, BP Cuff Size: Large Adult) Pulse 78 Temp 36.4 C (97.6 F) Resp 18 Ht 192 cm (6' 3.59 ) Wt 103.9 kg (229 lb) BMI 28.18 kg/m General Appearance: Well appearing, alert, in no acute distress, well-hydrated, well nourished.. Neck: Supple, no adenopathy; thyroid symmetric, normal size, no bruits. Lungs: Lungs clear to auscultation. No wheezing, rhonchi, rales.. Heart: RRR without murmur, gallop, or rubs. No ectopy. Extremities: No deformities, edema, skin discoloration, clubbing or cyanosis. Good capillary refill. . Peripheral Pulses: Normal. Health Maintenance List HEPATITIS B(1 of 3 - 3-dose series) Never done HEPATITIS C SCREENING Never done HIV SCREENING Never done DTAP,TDAP,TD(1 - Tdap) Never done COLORECTAL CANCER SCREENING Never done COVID-19 VACCINE(3 - Moderna series) due on 06/12/2021 DEPRESSION ASSESSMENT Never done INFLUENZA(1) due on 12/26/2022 DIABETES SCREEN due on 10/29/2025 LIPID SCREEN due on 10/30/2027 Data reviewed See labs in epic. ASSESSMENT/PLAN: 1. Marfan's disease - ICD9: 759.82, ICD10: Q87.40 (primary diagnosis) Will monitor. No chronic issues 2. GERD without esophagitis - ICD9: 530.81, ICD10: K21.9 - Discussed lifestyle modifications including limiting caffeine, no meals three hours before sleep, and head of bed elevation - Continue treatment - BASIC METABOLIC PNL 3. Hyperlipidemia, mixed - ICD9: 272.2, ICD10: E78.2 - Controlled - Continue current medications - Counseled on healthy diet and regular exercise - LIPID PANEL, NONFASTING 4. Screening for diabetes mellitus - ICD9: V77.1, ICD10: Z13.1 Recent a1c was normal 5. Encounter for lipid screening for cardiovascular disease - ICD9: V77.91, V81.2, ICD10: Z13.220, Z13.6 6. Chronic mixed headache syndrome - ICD9: 339.89, ICD10: G44.89 stable 7. Medication management - ICD9: V58.69, ICD10: Z79.899 - MAGNESIUM BLD Follow up in 6 months with labs prior. Physical is due next October Renée Gibson PA-C documented in this encounter [facility] 12-12-2022 Note HNO ID: [id number] Author: Costa Alvarado APRN.[employer] Service: ? Author Type: Nurse Practitioner Type: Progress Notes Filed: 12/12/2022 8:38 AM Note Text: Subjective HPI HPI Ginny Carson is a 47 year old male who presents today for CC of infection near buttocks. This started 5 days ago. Is currently on cefdinir for this, has had a rash for months, has seen dermatology. Symptoms are worsened by nothing known. Is very painful. .Patient presents with: abscess on bottom: X 5 days History reviewed. No pertinent past medical history. No past surgical history on file. ALLERGIES Patient has no known allergies. MEDICATIONS rosuvastatin (CRESTOR) 10 mg tablet clobetasol (TEMOVATE) 0.05 % cream omeprazole (PRILOSEC) 40 mg capsule cefdinir (OMNICEF) 300 mg capsule sulfamethoxazole-trimethoprim (BACTRIM DS) 800-160 mg per tablet Take 1 tablet by mouth twice daily for 7 days. No family history on file. Social History Tobacco Use Smoking status: Never Smokeless tobacco: Never Vaping Use Vaping Use: Never used Review of Systems Constitutional: Negative for fever. Skin: Positive for rash. Objective Blood pressure 110/78, pulse 82, temperature 36.3 ?C (97.4 ?F), temperature source Tympanic, resp. rate 16, weight 104.9 kg (231 lb 3.2 oz), SpO2 98 %. Physical Exam Exam conducted with a mounter sousaphones present. Constitutional: General: He is not in acute distress. Appearance: He is not toxic-appearing or diaphoretic. HENT: Head: Normocephalic and atraumatic. Pulmonary: Effort: Pulmonary effort is normal. No accessory muscle usage or respiratory distress. Skin: Neurological: Mental Status: He is alert and oriented to person, place, and time. ASSESSMENT/PLAN: 1. Skin infection - ICD9: 686.9, ICD10: L08.9 - Begin treatment with Trimethoprim-sulfamethozazole (Bactrim) - No lymphangetic streaking, this was defined for patient to watch for and to seek medical care immediately if appears - Follow up for recheck in three days, keep apt with dermatology next week. Urgent follow up for worsening s/s. - SULFAMETHOXAZOLE 800 MG-TRIMETHOPRIM 160 MG TABLET Costa Alvarado APRN.CNP [facility] 10-22-2022 Evaluation + Plan note Associated Problem(s): Rash Unsure etiology. No improvement with prednisone. Consulted with Dr. Asencio who believes this is probably tinea versicolor. Will start fluconazole weekly x2 weeks and ketoconazole cream twice daily. If not improving in the next 6 to 8 weeks or worsens, consider referral to dermatology [facility] 10-22-2022 Miscellaneous Notes Associated Problem(s): Rash Unsure etiology. No improvement with prednisone. Consulted with Dr. Asencio who believes this is probably tinea versicolor. Will start fluconazole weekly x2 weeks and ketoconazole cream twice daily. If not improving in the next 6 to 8 weeks or worsens, consider referral to dermatology documented in this encounter [facility] 10-22-2022 History of Present illness Narrative Images from the original note were not included. 10/22/2022 Ginny Carson (: 1975) is a 47 y.o. male , Established patient, here for evaluation of the following chief complaint(s): Rash, Itching, and Medication Problem (Started pepcid on Thursday (x2 pills) and felt like his skin is crawling ) ASSESSMENT/PLAN: 1. Tinea versicolor - fluconazole (Diflucan) 150 MG tablet; Take 2 tablets (300 mg) by mouth 1 (one) time per week for 2 doses., Starting Thu10/22/2022, Until Dorothy 10/30/2022, Normal - ketoconazole (NIZOral) 2 % cream; Apply topically 2 times daily., Starting Thu10/22/2022, Until Dorothy 10/22/2023, Normal 2. Rash Assessment & Plan: Unsure etiology. No improvement with prednisone. Consulted with Dr. Asencio who believes this is probably tinea versicolor. Will start fluconazole weekly x2 weeks and ketoconazole cream twice daily. If not improving in the next 6 to 8 weeks or worsens, consider referral to dermatology Reviewed and provided written patient education/instructions regarding diagnosis and management. Reviewed symptom management with non-pharmacological interventions and appropriate use of otc medications for relief of symptoms. Follow up for worsening or no improvement in symptoms. Follow up if symptoms worsen or fail to improve. SUBJECTIVE/OBJECTIVE: [facility] - Ginny Carson (: 1975) is a 47 y.o. male , Established patient, here for the evaluation of the following chief complaint(s): Rash, Itching, and Medication Problem (Started pepcid on Thursday (x2 pills) and felt like his skin is crawling ) Initially presented last week with generalized rash was given Medrol Dosepak, CBC CMP unremarkable. At that time no other symptoms. Today reports rash is about the same however has had increased itchiness on his arms. No fever no chills feels fine otherwise. Prior to Admission medications Medication Sig Start Date End Date Taking? Authorizing Provider clobetasol (Temovate) 0.05 % ointment Apply 0.05 application topically as needed. 06/25/21 Historical Provider, Cranberry 250 MG capsule Take 2 tablets by mouth. Historical Provider, econazole nitrate 1 % cream apply to LEFT AND RIGHT FEET (BETWEEN TOES WELL) twice a day UNTIL RESOLVED 10/25/21 Historical Provider, FIBER ADULT GUMMIES PO Take by mouth. Historical Provider, ibuprofen 200 MG tablet Take 800 mg by mouth. Historical Provider, Lidocaine, Anorectal, 5 % cream apply A PEA SIZED AMOUNT to affected area ONLY NEEDED 10/03/21 Historical Provider, methylPREDNISolone (Medrol Dospak) 4 MG tablets Take as directed on package. 10/16/22 10/23/22 Rachel Valentine APRN - JUNIOR omeprazole (PriLOSEC) [address] capsule TAKE 1 CAPSULE EVERY MORNING, BEFORE BREAKFAST 07/22/22 Cosme Asencio MD rosuvastatin (Crestor) 10 MG tablet TAKE 1 TABLET DAILY 07/22/22 Cosme Asencio MD triamcinolone (Kenalog) 0.1 % cream Apply 0.01 application topically as needed. 07/19/21 Historical Provider, predniSONE (Deltasone) 20 MG tablet Take 1 tablet (20 mg) by mouth daily. Patient not taking: Reported on 10/16/2022 06/12/22 10/22/22 Meera Blair MD Health Maintenance Due Topic Date Due MMR Vaccines (1 of 1 - Standard series) Never done Diabetes Screening Never done Influenza Vaccine (Season Ended) 2022 Review of Systems Constitutional: Negative. HENT: Negative. Respiratory: Negative. Cardiovascular: Negative. Gastrointestinal: Negative. Genitourinary: Negative. Musculoskeletal: Negative. Skin: Positive for rash. Neurological: Negative. Vitals: 10/22/22 0905 BP: 113/72 Pulse: 74 Resp: 16 Temp: 36.8 C (98.2 F) TempSrc: Oral SpO2: 99% Weight: 233 lb 6.4 oz (106 kg) Physical Exam Constitutional: General: He is not in acute distress. Appearance: Normal appearance. He is not ill-appearing. HENT: Head: Normocephalic and atraumatic. Right Ear: Tympanic membrane normal. Left Ear: Tympanic membrane normal. Nose: Nose normal. No congestion or rhinorrhea. Mouth/Throat: Mouth: Mucous membranes are moist. Pharynx: Oropharynx is clear. No posterior oropharyngeal erythema. Eyes: Conjunctiva/sclera: Conjunctivae normal. Cardiovascular: Rate and Rhythm: Normal rate and regular rhythm. Pulses: Normal pulses. Heart sounds: Normal heart sounds. Pulmonary: Effort: Pulmonary effort is normal. Breath sounds: Normal breath sounds. Abdominal: General: Abdomen is flat. Bowel sounds are normal. Palpations: Abdomen is soft. Musculoskeletal: General: Normal range of motion. Lymphadenopathy: Cervical: No cervical adenopathy. Skin: General: Skin is warm and dry. Findings: Rash (Generalized maculopapular erythematous rash) present. Neurological: Mental Status: He is alert and oriented to person, place, and time. An electronic signature was used to authenticate this note. TU Rondon CNP 10/22/2022 7:11 AM Registered Nurse Cardiovascular Icu for Intimate and Non Intimate Exam Registered Nurse Cardiovascular Icu was declined Registered Nurse Cardiovascular Icu: keven documented in this encounter [facility] 10-17-2022 Evaluation + Plan note Associated Problem(s): Rash Unsure etiology. Vital signs stable. Rash is not that bothersome. Will start oral steroids, H2 brianne. Check CBC CMP. Follow-up as directed pending testing results or sooner for any worsening symptoms [facility] 10-17-2022 Miscellaneous Notes Associated Problem(s): Rash Unsure etiology. Vital signs stable. Rash is not that bothersome. Will start oral steroids, H2 brianne. Check CBC CMP. Follow-up as directed pending testing results or sooner for any worsening symptoms documented in this encounter [facility] 10-16-2022 History of Present illness Narrative Registered Nurse Cardiovascular Icu for Intimate and Non Intimate Exam Registered Nurse Cardiovascular Icu was declined Registered Nurse Cardiovascular Icu: na Images from the original note were not included. 10/16/2022 Ginny Carson (: 1975) is a 47 y.o. male , Established patient, here for evaluation of the following chief complaint(s): Rash (Seen about 10 days ago-unsure when it had started ) ASSESSMENT/PLAN: 1. Rash Assessment & Plan: Unsure etiology. Vital signs stable. Rash is not that bothersome. Will start oral steroids, H2 brianne. Check CBC CMP. Follow-up as directed pending testing results or sooner for any worsening symptoms Orders: - methylPREDNISolone (Medrol Dospak) 4 MG tablets; Take as directed on package., Normal - CBC auto differential - Comprehensive metabolic panel Follow up for as directed pending test results. SUBJECTIVE/OBJECTIVE: HPI - Ginny Carson (: 1975) is a 47 y.o. male , Established patient, here for the evaluation of the following chief complaint(s): Rash (Seen about 10 days ago-unsure when it had started ) Was in [place] a few weeks ago and noticed about 10 days, itching some. No fever or chills. No body aches. No preceding illness. Rash is generalized. Not bothersome. Feels fine otherwise Prior to Admission medications Medication Sig Start Date End Date Taking? Authorizing Provider clobetasol (Temovate) 0.05 % ointment Apply 0.05 application topically as needed. 06/25/21 Yes Historical Provider, Cranberry 250 MG capsule Take 2 tablets by mouth. Yes Historical Provider, econazole nitrate 1 % cream apply to LEFT AND RIGHT FEET (BETWEEN TOES WELL) twice a day UNTIL RESOLVED 10/25/21 Yes Historical Provider, FIBER ADULT GUMMIES PO Take by mouth. Yes Historical Provider, ibuprofen 200 MG tablet Take 800 mg by mouth. Yes Historical Provider, Lidocaine, Anorectal, 5 % cream apply A PEA SIZED AMOUNT to affected area ONLY NEEDED 10/03/21 Yes Historical Provider, omeprazole (PriLOSEC) [address] capsule TAKE 1 CAPSULE EVERY MORNING, BEFORE BREAKFAST 07/22/22 Yes Cosme Asencio MD rosuvastatin (Crestor) 10 MG tablet TAKE 1 TABLET DAILY 07/22/22 Yes Cosme Asencio MD triamcinolone (Kenalog) 0.1 % cream Apply 0.01 application topically as needed. 07/19/21 Yes Historical Provider, predniSONE (Deltasone) 20 MG tablet Take 1 tablet (20 mg) by mouth daily. Patient not taking: Reported on 10/16/2022 06/12/22 Meera Blair MD Health Maintenance Due Topic Date Due MMR Vaccines (1 of 1 - Standard series) Never done Diabetes Screening Never done Influenza Vaccine (Season Ended) 2022 Review of Systems Constitutional: Negative. HENT: Negative. Respiratory: Negative. Cardiovascular: Negative. Gastrointestinal: Negative. Genitourinary: Negative. Musculoskeletal: Negative. Skin: Positive for rash. Neurological: Negative. Vitals: 10/16/22 1455 BP: 111/74 Pulse: 75 Resp: 20 Temp: 36.8 C (98.2 F) TempSrc: Infrared Weight: 236 lb 12.8 oz (107 kg) Physical Exam Constitutional: General: He is not in acute distress. Appearance: Normal appearance. He is not ill-appearing. HENT: Head: Normocephalic and atraumatic. Right Ear: Tympanic membrane normal. Left Ear: Tympanic membrane normal. Nose: Nose normal. No congestion or rhinorrhea. Mouth/Throat: Mouth: Mucous membranes are moist. Pharynx: Oropharynx is clear. No posterior oropharyngeal erythema. Eyes: Conjunctiva/sclera: Conjunctivae normal. Cardiovascular: Rate and Rhythm: Normal rate and regular rhythm. Pulses: Normal pulses. Heart sounds: Normal heart sounds. Pulmonary: Effort: Pulmonary effort is normal. Breath sounds: Normal breath sounds. Abdominal: General: Abdomen is flat. Bowel sounds are normal. Palpations: Abdomen is soft. Musculoskeletal: General: Normal range of motion. Lymphadenopathy: Cervical: No cervical adenopathy. Skin: General: Skin is warm and dry. Findings: Rash (Generalized maculopapular erythematous rash) present. Neurological: Mental Status: He is alert and oriented to person, place, and time. An electronic signature was used to authenticate this note. TU Rondon CNP 10/16/2022 3:01 PM documented in this encounter [facility] 10-16-2022 Instructions TU Rondon CNP - 10/16/2022 3:00 PM EDT Famotidine (pepcid) 20 mg twice daily x 7 days. documented in this encounter [facility] 09-06-2022 History of Present illness Narrative Images from the original note were not included. [facility] [place] [id number] [place] [address] Dept: [phone] Dept PHYSICAL THERAPY TREATMENT Patient Name: Ginny Carson : 1975 Date of Service: 09/06/2022 Referring Provider: Peter Briseno MD Diagnosis: Lumbar radiculopathy Reason for referral/Mechanism of injury: Patient reports back in February he had umbilical hernia surgery. About 2 1/2 weeks after that, he was watching tv and had his legs up on a foot stool and his right foot began to itch and went numb and tingling up to the R knee. He went to the doctor, they did an US to rule out blood clot. He has also been through a nerve conduction test and x-rays. He is currently seeing a chiropractor, and states theyre not getting anywhere. They have been doing a laser treatment on his leg and that has not done anything. He is frustrated because they are doing a bunch of testing and not getting any answers. Precautions/Red Flags: None Patient Preferences: Anuj or Ginny Subjective Pt says he is feeling pretty good today, but had his spell of tingling sitting in the waiting room, but it only lasts for about 30 seconds then goes away. Compliance with HEP: Yes Objective Objective measurements not taken today. Treatment Therapeutic Exercise Activity 3 Comment: bird dog (alt) 2x10, plank on elbows & knees 15 x3, fire hydrant 2x10, side plank 15 x2 ea side Therapeutic Exercise Activity 4: Resisted walks Activity 4 Comment: resisted cable walks fwd #70 3 laps, lateral #50 3 laps ea Activity 5 Comment: (COUNCIL MEMBER) SLS airex 30 x2 corey; SLS plyo toss 3-way 10x 1kg; BOSU lunges alt 20x Therapeutic Exercise Activity 7: NuStep Activity 7 Comment: 5 min lvl 6 Therapeutic Exercise Activity 8: Modified Andi stretch Activity 8 Comment: 2x30 COREY Assessment Skilled physical therapy interventions utilized to improve patient s impairments and work towards established goals. Patient response to treatment: Continued with core, lumbar, and LE strengthening exercises. Verbal cueing for technique and maintaining neutral core with with planks, bird dogs, and fire hydrants. Pt denied increased pain following exercises. Patient will benefit from continued physical therapy to improve core stabilization, increase strength, and return to PLOF. The rationale for today s treatment was explained to the patient. Verbal cues were provided for correct form with all exercises. Advised patient to continue with Home Exercise Program (HEP). Goals General/Ortho Patient will be independent with HEP. (Progressing) Start: 06/30/22 Expected End: 09/08/22 Patient will report centralization of RLE radicular symptoms out of the LE for 85% of the time. (Progressing) Start: 06/30/22 Expected End: 09/08/22 Patient will increase strength in RLE to 4+/5 or > to be able to maintain pelvic stability during gait activities. (Progressing) Start: 06/30/22 Expected End: 09/08/22 Gait: Patient will demonstrate only mild Trendelenburg or < during gait to demo improved pelvic stability. (Progressing) Start: 06/30/22 Expected End: 09/08/22 Patient will improve bilateral SL HR test to 15 reps or > to improve strength during gait mechanics. (Progressing) Start: 06/30/22 Expected End: 09/08/22 Functional Outcome Measure: Patient will improve LEFS to >55/80 (Progressing) Start: 06/30/22 Expected End: 09/08/22 Plan Plan for next session: Add monster walks and side stepping with tband and add to HEP if appropriate. Time Entry Total Treatment Time Start Time: 1030 Stop Time: 1100 Time Calculation (min): 30 min PT Therapeutic Procedures Time Entry Therapeutic Exercise Time Entry: Jimena Owen PTA documented in this encounter [facility] 08-25-2022 History of Present illness Narrative Images from the original note were not included. [facility] [address] [place] [address] Dept: [phone] Dept PHYSICAL THERAPY TREATMENT Patient Name: Ginny Carson : 1975 Date of Service: 08/25/2022 Referring Provider: Peter Briseno MD Diagnosis: Lumbar radiculopathy Reason for referral/Mechanism of injury: Patient reports back in February he had umbilical hernia surgery. About 2 1/2 weeks after that, he was watching tv and had his legs up on a foot stool and his right foot began to itch and went numb and tingling up to the R knee. He went to the doctor, they did an US to rule out blood clot. He has also been through a nerve conduction test and x-rays. He is currently seeing a chiropractor, and states theyre not getting anywhere. They have been doing a laser treatment on his leg and that has not done anything. He is frustrated because they are doing a bunch of testing and not getting any answers. Precautions/Red Flags: None Patient Preferences: Anuj or Ginny Subjective Pt reported no pain today, no changes or new complaints. Compliance with HEP: Yes Objective Objective measurements not taken today. Treatment Therapeutic Exercise # of Activities: 6 Therapeutic Exercise Activity 1: s/l clamshell Activity 1 Comment: 3x10 ea Therapeutic Exercise Activity 2: prone series d/c to I HEP Activity 2 Comment: PPU 2x10, prone alt hip ext 2x10 ea Therapeutic Exercise Acitivity 3: Core Activity 3 Comment: bird dog (alt) 2x10, plank on elbows & knees 15 x3, fire hydrant 2x10, side plank 15 x2 ea side Therapeutic Exercise Activity 4: Resisted walks Activity 4 Comment: resisted cable walks fwd #70 3 laps, lateral #50 2 laps ea Therapeutic Exercise Activity 5: Balance/LE stability Activity 5 Comment: SLS airex 30 x2 corey Therapeutic Exercise Activity 6: Standing Heel raises Activity 6 Comment: 3 way 1x10 ea Assessment Skilled physical therapy interventions utilized to improve patient s impairments and work towards established goals. Patient response to treatment: Pt was appropriately challenged by strengthening progressions this visit. Mild R hip discomfort with fire hydrant but tolerable. Patient will benefit from continued physical therapy to meet therapy goals to improve strength and pain. The rationale for today s treatment was explained to the patient. Verbal cues were provided for correct form with all exercises. Advised patient to continue with Home Exercise Program (HEP). Goals General/Ortho Patient will be independent with HEP. (Progressing) Start: 06/30/22 Expected End: 09/08/22 Patient will report centralization of RLE radicular symptoms out of the LE for 85% of the time. (Progressing) Start: 06/30/22 Expected End: 09/08/22 Patient will increase strength in RLE to 4+/5 or > to be able to maintain pelvic stability during gait activities. (Progressing) Start: 06/30/22 Expected End: 09/08/22 Gait: Patient will demonstrate only mild Trendelenburg or < during gait to demo improved pelvic stability. (Progressing) Start: 06/30/22 Expected End: 09/08/22 Patient will improve bilateral SL HR test to 15 reps or > to improve strength during gait mechanics. (Progressing) Start: 06/30/22 Expected End: 09/08/22 Functional Outcome Measure: Patient will improve LEFS to >55/80 (Progressing) Start: 06/30/22 Expected End: 09/08/22 Goal note from Evaluation 08/05/2022 by Janet Bess PT 52/80 (08/05/22) Plan Plan for next session: Continue with core strengthening progressions. Time Entry Janet Bess PT documented in this encounter [facility] 08-18-2022 History of Present illness Narrative Images from the original note were not included. [facility] [place] [facility] AT [place] [address] [place] [address] Dept: [phone] Dept PHYSICAL THERAPY TREATMENT Patient Name: Ginny Carson : 1975 Date of Service: 08/18/2022 Referring Provider: Peter Briseno MD Diagnosis: Lumbar radiculopathy Reason for referral/Mechanism of injury: Patient reports back in February he had umbilical hernia surgery. About 2 1/2 weeks after that, he was watching tv and had his legs up on a foot stool and his right foot began to itch and went numb and tingling up to the R knee. He went to the doctor, they did an US to rule out blood clot. He has also been through a nerve conduction test and x-rays. He is currently seeing a chiropractor, and states theyre not getting anywhere. They have been doing a laser treatment on his leg and that has not done anything. He is frustrated because they are doing a bunch of testing and not getting any answers. Precautions/Red Flags: None Patient Preferences: Anuj or Ginny Subjective Reports it felt good after working on the muscles last visit. Went to the chiro and they worked on the hip and that helped as well. 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 Compliance with HEP: Yes Objective Leg length discrepancy measurement (ASIS to center of medial malleoli) R le cm L le cm Treatment Therapeutic Exercise Therapeutic Exercise Activity 2: prone series Activity 2 Comment: PPU 2x10, prone alt hip ext 2x10 ea Therapeutic Exercise Acitivity 3: Core Activity 3 Comment: bird dog (alt) 2x10, resisted cable walks lateral #50 2 laps ea IASTM Location: RLE: hamstring, and peroneals Body Position: Prone Other Location: LLD measurement & fitting for heel insert Assessment Skilled physical therapy interventions utilized to improve patient s impairments and work towards established goals. Patient response to treatment: excellent tolerance. Able to progress core and hip stabilization with alternating bird dogs this visit and lateral cable column walks with good form noted. Measurements today demonstrate true LLD, with the RLE being 2 cm shorter. Discussed use of heel insert and cut a piece of foam to trial temporary heel insert. Improved soft tissue restrictions noted in the right peroneals today, still with a lot of tightness in the R hamstring. Patient will benefit from continued physical therapy to address pain and decreased strength. The rationale for today s treatment was explained to the patient. Verbal cues were provided for correct form with all exercises. Advised patient to continue with Home Exercise Program (HEP). Goals General/Ortho Patient will be independent with HEP. (Progressing) Start: 06/30/22 Expected End: 09/08/22 Patient will report centralization of RLE radicular symptoms out of the LE for 85% of the time. (Progressing) Start: 06/30/22 Expected End: 09/08/22 Patient will increase strength in RLE to 4+/5 or > to be able to maintain pelvic stability during gait activities. (Progressing) Start: 06/30/22 Expected End: 09/08/22 Gait: Patient will demonstrate only mild Trendelenburg or < during gait to demo improved pelvic stability. (Progressing) Start: 06/30/22 Expected End: 09/08/22 Patient will improve bilateral SL HR test to 15 reps or > to improve strength during gait mechanics. (Progressing) Start: 06/30/22 Expected End: 09/08/22 Functional Outcome Measure: Patient will improve LEFS to >55/80 (Progressing) Start: 06/30/22 Expected End: 09/08/22 Goal note from Evaluation 08/05/2022 by Janet Bess PT 52/80 (08/05/22) Plan Plan for next session: assess response to heel insert, can add another layer to get to 2 cm, add forward cable column walks to further progress dynamic core and hip stability Time Entry Total Treatment Time Start Time: 932 Stop Time: 1000 Time Calculation (min): 27 min Janet Bess PT documented in this encounter [facility] 08-14-2022 History of Present illness Narrative Images from the original note were not included. [facility] AT [address] [place] [address] Dept: [phone] Dept PHYSICAL THERAPY TREATMENT Patient Name: Ginny Carson : 1975 Date of Service: 08/14/2022 Referring Provider: Peter Briseno MD Diagnosis: Lumbar radiculopathy Reason for referral/Mechanism of injury: Patient reports back in February he had umbilical hernia surgery. About 2 1/2 weeks after that, he was watching tv and had his legs up on a foot stool and his right foot began to itch and went numb and tingling up to the R knee. He went to the doctor, they did an US to rule out blood clot. He has also been through a nerve conduction test and x-rays. He is currently seeing a chiropractor, and states theyre not getting anywhere. They have been doing a laser treatment on his leg and that has not done anything. He is frustrated because they are doing a bunch of testing and not getting any answers. Precautions/Red Flags: None Patient Preferences: Anuj or Ginny Subjective Tingling currently going from foot up to knee, came on from sitting in the waiting room. Has not been doing exercises as much because he has been busy. Was in the car for work 10 hours yesterday and that still worsens symptoms. Compliance with HEP: No Objective Level ASIS, unlevel malleoli. Appears to be a true LLD (left leg being shorter), will fully assess and measure next visit due to time constraints today Treatment Therapeutic Exercise Therapeutic Exercise Activity 2: prone series Activity 2 Comment: PPU 2x10, prone alt hip ext 2x10 ea Therapeutic Exercise Acitivity 3: Core Activity 3 Comment: quad LE extension 2x10 ea (COUNCIL MEMBER); palloff press #45 x20 ea; palloff circles 2x10 GTB (COUNCIL MEMBER) Soft Tissue Mobilization Location: RLE Body Position: Prone Comments: hamstring and lumbar paraspinals IASTM Location: RLE: hamstring, and peroneals Body Position: Prone Assessment Skilled physical therapy interventions utilized to improve patient s impairments and work towards established goals. Patient response to treatment: good tolerance. Initiated manual to reduce LE soft tissue restrictions. Abolishment of LE symptoms once lying in prone position and improving tightness in both hamstring and peroneals. Patient with complaint of R hip pain today, reassessed SIJ and pelvic alignment. Level ASIS today however uneven medial malleoli, demonstrating possible LLD (LLE shorter). Will fully assess and measure leg length next visit (due to time constraints). Discussed possible heel insert treatment. Patient will benefit from continued physical therapy to address pain and functional limitations. The rationale for today s treatment was explained to the patient. Verbal cues were provided for correct form with all exercises. Advised patient to continue with Home Exercise Program (HEP). Goals General/Ortho Patient will be independent with HEP. (Progressing) Start: 06/30/22 Expected End: 09/08/22 Patient will report centralization of RLE radicular symptoms out of the LE for 85% of the time. (Progressing) Start: 06/30/22 Expected End: 09/08/22 Patient will increase strength in RLE to 4+/5 or > to be able to maintain pelvic stability during gait activities. (Progressing) Start: 06/30/22 Expected End: 09/08/22 Gait: Patient will demonstrate only mild Trendelenburg or < during gait to demo improved pelvic stability. (Progressing) Start: 06/30/22 Expected End: 09/08/22 Patient will improve bilateral SL HR test to 15 reps or > to improve strength during gait mechanics. (Progressing) Start: 06/30/22 Expected End: 09/08/22 Functional Outcome Measure: Patient will improve LEFS to >55/80 (Progressing) Start: 06/30/22 Expected End: 09/08/22 Goal note from Evaluation 08/05/2022 by Janet Bess PT 52/80 (08/05/22) Plan Plan for next session: measure for true LLD Time Entry Total Treatment Time Start Time: 800 Stop Time: 829 Time Calculation (min): 29 min Janet Bess PT documented in this encounter [facility] SEJENT 08-05-2022 History of Present illness Narrative Images from the original note were not included. [facility] TH[facility] AT [address] [place] [address] Dept: [phone] Dept PHYSICAL THERAPY RE-EVALUATION Patient Name: Ginny Carson : 1975 Date of Service: 08/05/2022 Referring Provider: Meera Blair MD Diagnosis: Lumbar radiculopathy Reason for referral/Mechanism of injury: Patient reports back in February he had umbilical hernia surgery. About 2 1/2 weeks after that, he was watching tv and had his legs up on a foot stool and his right foot began to itch and went numb and tingling up to the R knee. He went to the doctor, they did an US to rule out blood clot. He has also been through a nerve conduction test and x-rays. He is currently seeing a chiropractor, and states theyre not getting anywhere. They have been doing a laser treatment on his leg and that has not done anything. He is frustrated because they are doing a bunch of testing and not getting any answers. Precautions/Red Flags: None Patient Preferences: Anuj or Ginny Subjective Pain: Best: 0/10 Worst: 5-6/10 General Comments: Patient reports he has had symptom improvement. They are still occurring however less intense. Tingling occurred the other day down the RLE while he was driving and pushing down on the gas pedal. Outcome Measures LEFS: 52/80 Objective Trunk AROM Percentage Flexion (flex) 75%, shooting pain in RLE Extension (ext) 75% Myotomes/LE Strength Right Left Hip Abduction 4+/5 5/5 Hip Extension 5/5 5/5 Ankle DF (L5) 5/5 5/5 Ankle PF (S1) 4+/5 5/5 Ankle Inversion 5/5 5/5 Ankle Eversion 5/5 5/5 Great Toe Ext (L5) 4/5 5/5 R SL HR Endurance Test: 12 reps L SL HR Endurance Test: 14 reps Right SLS: 20 sec R hamstrin/90 L hamstrin/90 Palpation: TTP to right peroneals and ITB Assessment Patient has attended 5 follow up visits since IE. Treatment has consisted of therex to improve lumbar mobility and core and LE strength. Upon reassessment today, he has demonstrated good improvement towards goals. Overall strength in the RLE is improving, including R ankle and foot. Radicular symptoms are still occurring, however occurring with less intensity. He would benefit from skilled therapy to address remaining deficits and PT goals to improve overall tolerance to daily activities. Goals Active General/Ortho Patient will be independent with HEP. (Progressing) Start: 06/30/22 Expected End: 09/08/22 Patient will report centralization of RLE radicular symptoms out of the LE for 85% of the time. (Progressing) Start: 06/30/22 Expected End: 09/08/22 Patient will increase spine extension AROM to 75% or >. (Completed) Start: 06/30/22 Expected End: 09/08/22 Met: 08/05/22 Patient will increase strength in RLE to 4+/5 or > to be able to maintain pelvic stability during gait activities. (Progressing) Start: 06/30/22 Expected End: 09/08/22 Gait: Patient will demonstrate only mild Trendelenburg or < during gait to demo improved pelvic stability. (Progressing) Start: 06/30/22 Expected End: 09/08/22 Patient will improve bilateral SL HR test to 15 reps or > to improve strength during gait mechanics. (Progressing) Start: 06/30/22 Expected End: 09/08/22 Functional Outcome Measure: Patient will improve LEFS to >55/80 (Progressing) Start: 06/30/22 Expected End: 09/08/22 Goal Note 52/80 (08/05/22) Plan Frequency and Duration: 2/wk for 4 weeks Therapeutic Contents: home exercise program, manual therapy techniques, neuromuscular re-education, therapeutic activities, and therapeutic exercise Plan for next session: initiate STM along R sural nerve distribution (peroneals, ITB), contract/relax and hamstring stretching, initiate ankle/balance training Risks and benefits were discussed with the patient and/or family, and the patient and/or family participated with the plan of care and agrees. Treatment Therapeutic Activity # of Activities: 1 Therapeutic Activity 1: reassessment of subjective and objective measures, reviewed goals and POC, updated HEP Time Entry Total Treatment Time Start Time: 1533 Stop Time: 1600 Time Calculation (min): 27 min PT Therapeutic Procedures Time Entry Therapeutic Activity Time Entry: Janet Bess PT documented in this encounter [facility] SEJENT 07-24-2022 History of Present illness Narrative Images from the original note were not included. [facility] [place] [facility] TH[facility]AP[facility] AT [place] [address] [place] [address] Dept: [phone] Dept PHYSICAL THERAPY TREATMENT Patient Name: Ginny Carson : 1975 Date of Service: 07/24/2022 Referring Provider: Meera Blair MD Diagnosis: Lumbar radiculopathy Reason for referral/Mechanism of Injury: Patient reports back in February he had umbilical hernia surgery. About 2 1/2 weeks after that, he was watching tv and had his legs up on a foot stool and his right foot began to itch and went numb and tingling up to the R knee. He went to the doctor, they did an US to rule out blood clot. He has also been through a nerve conduction test and x-rays. He is currently seeing a chiropractor, and states theyre not getting anywhere. They have been doing a laser treatment on his leg and that has not done anything. He is frustrated because they are doing a bunch of testing and not getting any answers. Patient Preferences: Anuj or Ginny Precautions/Red Flags: Subjective Pt denies pain prior to session. Pt states he was performing quadruped LE extensions at home with good tolerance. Compliance with HEP: Yes Objective Objective measurements not taken today. Treatment Therapeutic Exercise # of Activities: 6 Therapeutic Exercise Activity 2: prone series Activity 2 Comment: REGINA 2 minutes; Press ups on elbows 2x10; prone alt hip ext 2x10 ea Therapeutic Exercise Acitivity 3: Core Activity 3 Comment: quad LE extension 2x10 ea; palloff press 2x10 #45; palloff circles 2x10 #45; bird dogs 1x10 ea; fire hydrants 2x10 Therapeutic Exercise Activity 4: LOGAN Activity 4 Comment: 1x10 Therapeutic Exercise Activity 5: Standing Hip ABD Activity 5 Comment: 2x10 each Therapeutic Exercise Activity 6: Standing Heel raises Activity 6 Comment: 3 way 1x10 ea Assessment Skilled physical therapy interventions utilized to improve patient s impairments and work towards established goals. Patient response to treatment: Pt 5 minutes late to session. Pt is progressing via performing anti-rotational circles with good tolerance. Pt is progressing well with core activities at this time. Patient will benefit from continued physical therapy to progress towards PT goals. The rationale for today s treatment was explained to the patient. Verbal cues were provided for correct form with all exercises. Advised patient to continue with Home Exercise Program (HEP). Goals General/Ortho Patient will be independent with HEP. (Progressing) Start: 06/30/22 Expected End: 09/08/22 Patient will report centralization of RLE radicular symptoms out of the LE for 85% of the time. (Progressing) Start: 06/30/22 Expected End: 09/08/22 Patient will increase spine extension AROM to 75% or >. (Progressing) Start: 06/30/22 Expected End: 09/08/22 Patient will increase strength in RLE to 4+/5 or > to be able to maintain pelvic stability during gait activities. (Progressing) Start: 06/30/22 Expected End: 09/08/22 Gait: Patient will demonstrate only mild Trendelenburg or < during gait to demo improved pelvic stability. (Progressing) Start: 06/30/22 Expected End: 09/08/22 Patient will improve bilateral SL HR test to 15 reps or > to improve strength during gait mechanics. (Progressing) Start: 06/30/22 Expected End: 09/08/22 Functional Outcome Measure: Patient will improve LEFS to >55/80 (Progressing) Start: 06/30/22 Expected End: 09/08/22 Plan Plan for next session: Progress core as tolerated. Update HEP. Time Entry Total Treatment Time Start Time: 153 Stop Time: 1559 Time Calculation (min): 24 min PT Therapeutic Procedures Time Entry Therapeutic Exercise Time Entry: 24 Jakub Schaeffer PTA documented in this encounter [facility] 07-21-2022 History of Present illness Narrative Images from the original note were not included. [facility] THERAPY AT [address] [place] [address] Dept: [phone] Dept PHYSICAL THERAPY TREATMENT Patient Name: Ginny Carson : 1975 Date of Service: 07/21/2022 Referring Provider: Meera Blair MD Diagnosis: Lumbar radiculopathy Reason for referral/Mechanism of Injury: Patient reports back in February he had umbilical hernia surgery. About 2 1/2 weeks after that, he was watching tv and had his legs up on a foot stool and his right foot began to itch and went numb and tingling up to the R knee. He went to the doctor, they did an US to rule out blood clot. He has also been through a nerve conduction test and x-rays. He is currently seeing a chiropractor, and states theyre not getting anywhere. They have been doing a laser treatment on his leg and that has not done anything. He is frustrated because they are doing a bunch of testing and not getting any answers. Patient Preferences: Anuj or Ginny Precautions/Red Flags: Subjective Pt denies pain prior to session. Pt states that he just came from the chiropractor at this time. Pt also reports sharp pain in the low back during HL core at this time. Compliance with HEP: Yes Objective Objective measurements not taken today. Treatment Therapeutic Exercise Therapeutic Exercise Activity 1: s/l clamshell Activity 1 Comment: 2x10 ea Therapeutic Exercise Activity 2: prone series Activity 2 Comment: prone lying 3 min, REGINA 2 min, Prone Press ups on elbows 3x10, prone alt hip ext 2x10 ea Therapeutic Exercise Acitivity 3: Core Activity 3 Comment: quad LE extension 2x10 ea; palloff press 2x10 #40 Therapeutic Exercise Activity 4: LOGAN Activity 4 Comment: 1x10 Therapeutic Exercise Activity 5: Standing Hip ABD Activity 5 Comment: 2x10 each Assessment Skilled physical therapy interventions utilized to improve patient s impairments and work towards established goals. Patient response to treatment: Pt tolerated session well and is progressing via performing standing and quad core activity with good tolerance. Patient will benefit from continued physical therapy to progress towards PT goals. The rationale for today s treatment was explained to the patient. Verbal cues were provided for correct form with all exercises. Advised patient to continue with Home Exercise Program (HEP). Goals General/Ortho Patient will be independent with HEP. (Progressing) Start: 06/30/22 Expected End: 09/08/22 Patient will report centralization of RLE radicular symptoms out of the LE for 85% of the time. (Progressing) Start: 06/30/22 Expected End: 09/08/22 Patient will increase spine extension AROM to 75% or >. (Progressing) Start: 06/30/22 Expected End: 09/08/22 Patient will increase strength in RLE to 4+/5 or > to be able to maintain pelvic stability during gait activities. (Progressing) Start: 06/30/22 Expected End: 09/08/22 Gait: Patient will demonstrate only mild Trendelenburg or < during gait to demo improved pelvic stability. (Progressing) Start: 06/30/22 Expected End: 09/08/22 Patient will improve bilateral SL HR test to 15 reps or > to improve strength during gait mechanics. (Progressing) Start: 06/30/22 Expected End: 09/08/22 Functional Outcome Measure: Patient will improve LEFS to >55/80 (Progressing) Start: 06/30/22 Expected End: 09/08/22 Plan Plan for next session: Progress core as tolerated. MET as needed. Time Entry Total Treatment Time Start Time: 1600 Stop Time: 1624 Time Calculation (min): 24 min PT Therapeutic Procedures Time Entry Therapeutic Exercise Time Entry: 24 Jakub Schaeffer PTA documented in this encounter [facility] 06-30-2022 Note General Surgery Hist ory and Physical HPI: Mr. Carson is a 47 y.o. M presenting for follow up regarding rectal discomfort. Patient known to service from Robotic Assisted Laparoscopic Umbilical Hernia Repair with Mesh Transabdominal Preperitoneal Approach (LD) on 03/05/[address] Barrera and subsequent office visit on 04/24/2022- patient was referred to Dr. Cid for possible condyloma recurrence- patient with history of excision of condyloma in 2020 with LSIL on pathology. Patient states that he did follow up with Dr. Cid (no evidence of condyloma recurrence, observed external hemorrhoids recommended zinc cream) and since has had resolution of lipoma symptoms but still with external hemorrhoid symptoms. Patient notes that certain activities exacerbate his rectal discomfort, notably sitting/driving long distances for work. He states that if he uses a topical cream at the start of the day the symptoms are more controlled. He states that he often feels a pressure/discomfort sensation. Patient denies rectal bleeding, hematochezia, or melena. He states that his bowel habits fluctuate between constipation and diarrhea. Patient takes fiber gummies daily but admits to only 1-2 bottles of water each day. Thoroughly reviewed the patient's medical history, family history, social history and review of systems with the patient today in the office. Please see medical record for pertinent positives. Impression /Treatment: Patient with external hemorrhoid without evidence of further mass/condyloma or rash. Patient to continue improvement of bowel habits including daily fiber supplements with increased water intake. Continue his previously used cream for symptomatic care. No operative intervention planned, patient may follow up on PRN basis. Patient counseled on risks, benefits, and alternatives of treatment plan at length while in the office today. Patient states an understanding and willingness to proceed with plan. Past Medical History: Diagnosis Date Anal condyloma Anal condyloma Aortic regurgitation Bicuspid aortic valve Marfan's syndrome Mitral valve prolapse Tinea cruris Ventricular hypertrophy left Past Surgical History: Procedure Laterality Date ANUS SURGERY 03/2018 excision condyloma in office HIATAL HERNIA REPAIR 2014 NOSE SURGERY RECTAL EXAM (HISTORICAL) 04/08/2021 Fulguration of Anal Condyloma, colonoscopy UMBILICAL HERNIA REPAIR 03/05/2022 Current Outpatient Medications Medication Sig Dispense Refill clobetasol (Temovate) 0.05 % ointment Apply 0.05 application topically as needed. Cranberry 250 MG capsule Take 2 tablets by mouth. econazole nitrate 1 % cream apply to LEFT AND RIGHT FEET (BETWEEN TOES WELL) twice a day UNTIL RESOLVED FIBER ADULT GUMMIES PO Take by mouth. ibuprofen 200 MG tablet Take 800 mg by mouth. Lidocaine, Anorectal, 5 % cream apply A PEA SIZED AMOUNT to affected area ONLY NEEDED omeprazole (PriLOSEC) [address] capsule Take 1 capsule by mouth every morning (before breakfast). predniSONE (Deltasone) 20 MG tablet Take 1 tablet (20 mg) by mouth daily. 7 tablet 0 rosuvastatin (Crestor) 10 MG tablet Take 1 tablet by mouth in the morning. triamcinolone (Kenalog) 0.1 % cream Apply 0.01 application topically as needed. No current facility-administered medications for this visit. No Known Allergies Review of Systems: Review of Systems Constitutional: Negative for appetite change, chills, fatigue, fever and unexpected weight change. HENT: Negative for hearing loss, nosebleeds, trouble swallowing and voice change. Respiratory: Negative for cough, shortness of breath and wheezing. Cardiovascular: Negative for chest pain and palpitations. Gastrointestinal: Positive for constipation, diarrhea and rectal pain. Negative for abdominal pain, anal bleeding, nausea and vomiting. Endocrine: Negative for polyuria. Genitourinary: Negative for difficulty urinating, frequency, hematuria and urgency. Skin: Negative for rash and wound. Allergic/Immunologic: Negative for immunocompromised state. Neurological: Negative for seizures and syncope. Hematological: Negative for adenopathy. Does not bruise/bleed easily. Psychiatric/Behavioral: Negative for agitation and confusion. Physical Exam: BP 108/65 Pulse 70 Ht 6' 5 (1.956 m) Wt 241 lb 9.6 oz (110 kg) BMI 28.65 kg/m? Physical Exam Exam conducted with a mounter sousaphones present. Constitutional: Appearance: Normal appearance. HENT: Head: Normocephalic. Eyes: Pupils: Pupils are equal, round, and reactive to light. Cardiovascular: Rate and Rhythm: Normal rate and regular rhythm. Pulmonary: Effort: No respiratory distress. Breath sounds: Normal breath sounds. No rales. Abdominal: General: There is no distension. Palpations: There is no mass. Tenderness: There is no abdominal tenderness. There is no guarding or rebound. Genitourinary: Comments: External: External (more content not included)... [facility] 05-14-[address] ref[address] al, thank you! [facility] 05-05-2022 Note Name: Ginny Carson Date of : 1975 Attending physician: Cosme Asencio MD A report of nerve conduction studies and electromyography of the right lower extremity Date of service: May 05, 2022 Findings: Sensory nerve conduction studies disclosed a prolonged response latency in the right sural nerve; the response amplitude was normal. The response latency and amplitude were normal in the right superficial peroneal nerve. Motor nerve conduction studies disclosed normal distal latencies, response amplitudes and conduction velocities in the right tibial nerve, and in the right peroneal/fibular nerve to both extensor digitorum brevis and tibialis anterior. A right tibial nerve H-reflex showed a prolonged latency, attributable to the patient's above-average height. Needle EMG examination disclosed normal spontaneous activity in the right vastus medialis and lateralis, tibialis anterior, lateral gastrocnemius, extensor hallucis longus, extensor digitorum brevis, abductor hallucis, semitendinosus, short head of the biceps femoris, and low lumbar and S1 paraspinal muscles. Motor unit potential recruitment was moderately decreased in the right tibialis anterior and extensor digitorum brevis, with enlarged polyphasic motor unit potentials in each muscle. Recruitment was mildly decreased in the right abductor hallucis with occasional enlarged motor unit potentials. There were also occasional enlarged motor unit potentials in the right biceps femoris (short head) without impairment of recruitment. Motor unit potential recruitment and morphology were normal in all other muscles examined, except theparaspinal muscles where they were not assessed. Interpretation: Nerve conduction studies and electromyography of the right lower limb were consistent with mild chronic right L5 and S1 motor radiculopathies. Although there is often considerable electromyographic overlap between these two nerve roots, there were two affected muscles innervated by each nerve root and not the other. Thus there was evidence of individual involvement of both L5 and S1. There was no evidence of ongoing denervation. There was also evidence of mild demyelination in the distal right sural nerve on the nerve conduction study, but no evidence of demyelination elsewhere. Clinical correlation is advised. Ginny Navarro MD Test numbers: 23 [id number] and 23 [id number] Location: Testing was conducted at [facility] as an outpatient. [facility] 04-24-2022 Note General Surgery Hist ory and Physical Brandon Barrera MD Patient ID: Ginny Carson [id number] 46 y.o. 1975 CHIEF COMPLAINT: Chief Complaint Patient presents with Anal Condyloma EST PT Anal condyloma referral from Dr. Asencio HPI: Ginny Carson is a 46 y.o. male who presents with anal mass and pain Patient presents for evaluation regarding rectal mass and pain. Patient states he has history of anal condyloma removal with Dr. Cid in March of 2021. Patient states that the bump he felt at the site resolved and felt well until about 3 months ago. Patient notes that he felt another similar bump as before near the rectum. He notes that this has become increasingly painful and states that another bump behind the initial site has formed. He denies associated bleeding or drainage and states that he is still able to pass stool. Patient denies associated symptoms including fever/chills, nausea/vomiting, diarrhea, constipation, hematochezia, or melena. Patient denies knowing family history of rectal or colon disease as he is adopted. He denies blood thinning medication. Patient known to service from Robotic Assisted Laparoscopic Umbilical Hernia Repair with Mesh Transabdominal Preperitoneal Approach (LD) on 03/05/2022. He states that he is healing well from his hernia repair and has no concerns. Past Medical History: Diagnosis Date Anal condyloma Anal condyloma Aortic regurgitation Bicuspid aortic valve Marfan's syndrome Mitral valve prolapse Tinea cruris Ventricular hypertrophy left Past Surgical History: Procedure Laterality Date ANUS SURGERY 03/2018 excision condyloma in office HIATAL HERNIA REPAIR 2014 NOSE SURGERY RECTAL EXAM (HISTORICAL) 04/08/2021 Fulguration of Anal Condyloma, colonoscopy UMBILICAL HERNIA REPAIR 03/05/2022 Medications Prior to Visit: @[email or web address]@ Allergies: Patient has no known allergies. Social History Socioeconomic History Marital status: Tobacco Use Smoking status: Never Smokeless tobacco: Never Substance and Sexual Activity Alcohol use: Yes Alcohol/week: 1.0 standard drink Drug use: No Social Determinants of Health Financial Resource Strain: Low Risk Difficulty of Paying Living Expenses: Not hard at all Food Insecurity: No Food Insecurity Worried About Running Out of Food in the Last Year: Never true Ran Out of Food in the Last Year: Never true Transportation Needs: No Transportation Needs Lack of Transportation (Medical): No Lack of Transportation (Non-Medical): No Family History Adopted: Yes Review of Systems: Review of Systems Constitutional: Negative for appetite change, chills, fatigue, fever and unexpected weight change. HENT: Negative for hearing loss, nosebleeds, trouble swallowing and voice change. Respiratory: Negative for cough, shortness of breath and wheezing. Cardiovascular: Negative for chest pain and palpitations. Gastrointestinal: Positive for rectal pain. Negative for abdominal pain, anal bleeding, blood in stool, constipation, diarrhea, nausea and vomiting. Endocrine: Negative for polyuria. Genitourinary: Negative for difficulty urinating, frequency, hematuria and urgency. Skin: Negative for rash and wound. Allergic/Immunologic: Negative for immunocompromised state. Neurological: Negative for seizures and syncope. Hematological: Negative for adenopathy. Does not bruise/bleed easily. Psychiatric/Behavioral: Negative for agitation and confusion. Physical Exam: BP 120/77 Pulse 76 Temp 36 ?C (96.8 ?F) (Temporal) Ht 6' 5 (1.956 m) Wt 244 lb 3.2 oz (111 kg) BMI 28.96 kg/m? Physical Exam Constitutional: General: He is not in acute distress. Appearance: He is not ill-appearing. HENT: Head: Normocephalic and atraumatic. Eyes: General: No scleral icterus. Pupils: Pupils are equal, round, and reactive to light. Cardiovascular: Rate and Rhythm: Normal rate and regular rhythm. Pulmonary: Effort: Pulmonary effort is normal. No respiratory distress. Abdominal: General: There is no distension. Tenderness: There is no abdominal tenderness. Genitourinary: Comments: Moderate anal condyloma in the posterior midline. External hemorrhoids in the right anterior position. Well circumscribed 2 cm mobile mass within the perineum deeper subcutaneous tissues. Musculoskeletal: General: No swelling or tenderness. Skin: General: Skin is warm. Coloration: Skin is not jaundiced. Neurological: General: No focal deficit present. Mental Status: He is oriented to person, place, and time. Psychiatric: Mood and Affect: Mood normal. Thought Content: Thought content normal. Orders Placed This Encounter Procedures Ambulatory referral to Colorectal Surgery Impression/Treatment Plan: Ginny Carson is a 46 y.o. male with anal mass and pain -Patient with history of anal condyloma, has presentation of similar symptoms that started 3 months ago incl (more content not included)... [facility] 04-18-2022 Note Addendum created 1031 by TU Dang CRNA Attestation recorded in Intraprocedure, Intraprocedure Attestations filed [facility] 04-11-2022 Note Referral to surgery for further evaluation and to determine the best way of imaging to see what this is or if it should just be removed. [facility] 03-05-2022 Note Patient: Ginny adrian Procedure Summary Date: 03/05/22 Room / Location: [address] Operating Room Anesthesia Start: 806 Anesthesia Stop: 910 Procedure: ROBOTIC (XI) LAPAROSCOPY REPAIR UMBILICAL HERNIA WITH MESH (Abdomen) Diagnosis: Umbilical hernia (Umbilical hernia [K42.9]) Surgeons: Brandon Barrera MD Responsible Provider: TU Dang CRNA Anesthesia Type: general, regional ASA Status: 3 Anesthesia Type: general, regional Vitals Value Taken Time BP 105/62 03/05/22 1045 Temp 36.6 ?C (97.9 ?F) 03/05/22 0908 Pulse 80 03/05/22 1045 Resp 19 03/05/22 1045 SpO2 95 % 03/05/22 1045 Anesthesia Post Evaluation Patient location during evaluation: PACU Patient participation: complete - patient participated Level of consciousness: awake and alert Pain management: adequate Airway patency: patent Dental Injury: no Cardiovascular status: acceptable, blood pressure returned to baseline and hemodynamically stable Respiratory status: acceptable and spontaneous ventilation Hydration status: euvolemic Nausea/Vomiting: controlled No notable events documented. Patient can be discharged once all PACU criteria has been met. [facility] 03-05-2022 Note Patient: Ginny adrian Procedure Summary Date: 03/05/22 Room / Location: [address] Operating Room Anesthesia Start: 806 Anesthesia Stop: 910 Procedure: ROBOTIC (XI) LAPAROSCOPY REPAIR UMBILICAL HERNIA WITH MESH (Abdomen) Diagnosis: Umbilical hernia (Umbilical hernia [K42.9]) Surgeons: Brandon Barrera MD Responsible Provider: TU Dang CRNA Anesthesia Type: general, regional ASA Status: 3 Anesthesia Type: general, regional Vitals Value Taken Time BP 105/62 03/05/22 1045 Temp 36.6 ?C (97.9 ?F) 03/05/22 0908 Pulse 80 03/05/22 1045 Resp 19 03/05/22 1045 SpO2 95 % 03/05/22 1045 Anesthesia Post Evaluation Patient location during evaluation: PACU Patient participation: complete - patient participated Level of consciousness: awake and alert Pain management: satisfactory to patient Multimodal analgesia pain management approach Airway patency: patent Cardiovascular status: acceptable and hemodynamically stable Respiratory status: acceptable Hydration status: acceptable No notable events documented. Anesthesia Post Evaluation I completed my handoff to the receiving clinician during which we: 1. Identified the patient 2. Identified the responsible provider 3. Reviewed the pertinent medical history 4. Discussed the surgical course 5. Reviewed intra-op anesthesia management and issues during anesthesia 6. Set expectations for post-procedure period 7. Allowed opportunity for questions and acknowledgement of understanding. [facility] 03-05-2022 Note Airway Date/Time: 03/05/2022 8:12 AM Urgency: scheduled Airway not difficult General Information and Staff Patient location during procedure: Procedural Resident/BROOM STITCHER: TU Dang CRNA Performed: BROOM STITCHER Indications and Patient Condition Indications for airway management: anesthesia and airway protection Sedation level: Asleep Preoxygenated: yes Patient position: sniffing Mask difficulty assessment: 1 - vent by mask Final Airway Details Final airway type: endotracheal airway Successful airway: ETT Successful intubation technique: direct laryngoscopy Facilitating devices/methods: intubating stylet Endotracheal tube insertion site: oral Blade: Laurie Blade size: #4 Placement verified by: chest auscultation and capnometry Measured from: lips Number of attempts at approach: 1 [facility] 03-05-2022 Note Peripheral Block Patient location during procedure: Procedural Start time: 03/05/2022 8:10 AM End time: 03/05/2022 8:10 AM Reason for block: at surgeon's request and post-op pain management Staffing Performed: BROOM STITCHER Resident/BROOM STITCHER: TU Romero CRNA Preanesthetic Checklist Completed: patient identified, IV checked, site marked, risks and benefits discussed, surgical consent, monitors and equipment checked, pre-op evaluation and timeout performed Region: Truncal Primary: TAP and Upper rectus w/wo lower Secondary: Transversalis Fascia Plane (TAP) and Upper rectus Peripheral Block Patient position: supine Prep: ChloraPrep Patient monitoring: heart rate, telemetry monitor, continuous pulse ox and continuous capnometry O2: ETT/LMA Laterality: bilateral Injection technique: single-shot Guidance: ultrasound guided -imagine retained in chart (if required), tip of the needle identified by ultraound during injection. Needle Needle: 21G X 110 mm Additional Notes Bupivacaine HCL 0.375% with decadron and epi 40 ml divided evenly bilaterally in TAP block Bupivacaine HCL 0.375% with decadron and epi 20 ml divided evenly bilaterally in rectus block03/05/2022 8:10 AM Assessment Injection assessment: negative aspiration for heme and incremental injection Heart rate change: no Slow fractionated injection: yes Required Documentation: Relevant anatomy identified (Nerves, Vessels, Muscles), Negative for blood on aspiration, Local anesthetic injected incrementally with intermittent aspiration every 5 mL, Normal resistance with injection, No symptoms of toxicity, No EKG changes noted, Local anesthetic spread visualized around nerves or plane. and Local anesthetic injected without difficulty [facility] 03-05-2022 Note General Surgery Hist ory and Physical Brandon Barrera MD Patient ID: Ginny Carson [id number] 46 y.o. 1975 CHIEF COMPLAINT: Chief Complaint Patient presents with Hernia COUNCIL MEMBER umbilical hernia referral from Dr. Asencio HPI: Ginny Carson is a 46 y.o. male who presents with umbilical bulge. Incidentally found by PCP during physical exam. Prior left inguinal hernia repair in past. Noted umbilical hernia containing fat on CT scan from 2018. Abdominal Pain History: Patient complains of abdominal pain. Pain is located in the periumbilical bilateral with radiation to the none. The pain is described as none. Onset was 3 years ago. Symptoms have been unchanged since. Aggravating factors: none. Associated symptoms: none. The patient denies chills, diarrhea, fever, nausea and vomiting and jaundice. Past Medical History: Diagnosis Date Anal condyloma Anal condyloma Aortic regurgitation Bicuspid aortic valve Marfan's syndrome Mitral valve prolapse Tinea cruris Ventricular hypertrophy left Past Surgical History: Procedure Laterality Date ANUS SURGERY 03/2018 excision condyloma in office HIATAL HERNIA REPAIR 2013 NOSE SURGERY RECTAL EXAM 04/08/2021 Fulguration of Anal Condyloma, colonoscopy Medications Prior to Visit: Prior to Admission medications Medication Sig Start Date End Date Taking? Authorizing Provider Multiple Vitamins-Minerals (ONE-A-DAY MENS VITACRAVES) CHEW Take by mouth Yes Historical Provider, FIBER ADULT GUMMIES PO Take by mouth Yes Historical Provider, omeprazole (PRILOSEC) 40 MG delayed release capsule Take 1 capsule by mouth every morning (before breakfast) 07/05/21 Yes TU Galvez CNP rosuvastatin (CRESTOR) 10 MG tablet TAKE 1 TABLET DAILY 06/24/21 Yes TU Galvez CNP Cranberry (AZO CRANBERRY GUMMIES) 250 MG CHEW Take 2 tablets by mouth every morning Yes Historical Provider, clobetasol (TEMOVATE) 0.05 % ointment Apply topically daily for no more than 2 weeks. Patient not taking: Reported on 07/09/2021 06/25/21 Cosme Asencio MD aspirin 500 MG tablet Take 500 mg by mouth every 6 hours as needed for Pain Historical Provider, ibuprofen (ADVIL;MOTRIN) 200 MG tablet Take 800 mg by mouth every 8 hours as needed for Pain Patient not taking: Reported on 07/09/2021 Historical Provider, Lidocaine, Anorectal, (HEMORRHOIDAL RELIEF) 5 % CREA Apply 1 Dose topically 3 times daily as needed (hemorrhoids) Patient not taking: Reported on 07/09/2021 01/30/21 Ping M Tokie, MANAGER [employer] - [employer] MEMBER Allergies: Patient has no known allergies. Social History Socioeconomic History Marital status: Spouse name: None Number of children: None Years of education: None Highest education level: None Occupational History None Tobacco Use Smoking status: Never Smoker Smokeless tobacco: Never Used Vaping Use Vaping Use: Never used Substance and Sexual Activity Alcohol use: Yes Alcohol/week: 1.0 standard drink Types: 1 Standard drinks or equivalent per week Comment: occasionally Drug use: No Sexual activity: None Other Topics Concern None Social History Narrative None Social Determinants of Health Financial Resource Strain: Low Risk Difficulty of Paying Living Expenses: Not very hard Food Insecurity: No Food Insecurity Worried About Running Out of Food in the Last Year: Never true Ran Out of Food in the Last Year: Never true Transportation Needs: No Transportation Needs Lack of Transportation (Medical): No Lack of Transportation (Non-Medical): No Physical Activity: Insufficiently Active Days of Exercise per Week: 3 days Minutes of Exercise per Session: 30 min Stress: Feeling of Stress : Not on file Social Connections: Frequency of Communication with Friends and Family: Not on file Frequency of Social Gatherings with Friends and Family: Not on file Attends Spiritism Services: Not on file Active Member of Clubs or Organizations: Not on file Attends Club or Organization Meetings: Not on file Marital Status: Not on file Intimate Partner Violence: Fear of Current or Ex-Partner: Not on file Emotionally Abused: Not on file Physically Abused: Not on file Sexually Abused: Not on file Housing Stability: Unable to Pay for Housing in the Last Year: Not on file Number of Places Lived in the Last Year: Not on file Unstable Housing in the Last Year: Not on file Family History Adopted: Yes Family history unknown: Yes Review of Systems: Review of Systems Constitutional: Negative for chills, fatigue, fever and unexpected weight change. HENT: Negative for sore throat and trouble swallowing. Respiratory: Negative for cough, shortness of breath and wheezing. Cardiovascular: Negative for chest pain and palpitations. Gastrointestinal: Negative for abdominal pain, constipation, diarrhea, nausea and vomiting. Skin: Negative for rash and wound. Neurological: Negative for seizures an (more content not included)... [facility] 03-05-2022 Note Patient: Ginny Posadas kaylah Procedure Information Date/Time: 03/05/22 0800 Procedure: ROBOTIC (XI) LAPAROSCOPY REPAIR UMBILICAL HERNIA WITH MESH (Abdomen) Location: [place] OR 2 / [facility] Operating Room Surgeons: Brandon Barrera MD Relevant Problems Cardio (+) Mitral valve prolapse (+) Mixed hyperlipidemia GI (+) Gastroesophageal reflux disease without esophagitis Neuro/Psych (+) Other headache syndrome Past Medical History: Past Medical History: No date: Anal condyloma No date: Anal condyloma No date: Aortic regurgitation No date: Bicuspid aortic valve No date: Marfan's syndrome No date: Mitral valve prolapse No date: Tinea cruris No date: Ventricular hypertrophy Comment: left Past Surgical History: Past Surgical History: 03/2018: ANUS SURGERY Comment: excision condyloma in office 2014: HIATAL HERNIA REPAIR No date: NOSE SURGERY Social History: TOBACCO: reports that he has never smoked. He has never used smokeless tobacco. ETOH: reports current alcohol use of about 1.0 standard drink per week. Social History Substance and Sexual Activity Drug Use No Family History: Family History Adopted: Yes Clinical information reviewed: Tobacco Allergies Meds Med Hx Surg Hx Fam Hx Soc Hx Physical Exam Airway Mallampati: II Cardiovascular Dental (+) upper dentures, lower dentures Pulmonary Abdominal Anesthesia Plan ASA 3 general and regional (Tap) The patient is not a current smoker. Anesthetic plan and risks discussed with patient and spouse. SINUS RHYTHM NONSPECIFIC T ABNORMALITIES, LATERAL LEADS BASELINE WANDER IN LEAD(S) V4 Compared to ECG 04/01/2021 15:30:10 No significant changes PARAG Screening Labs: Lab Results Component Value Date WBC 6.0 06/27/2021 HGB 14.4 06/27/2021 MCV 90.9 06/27/2021 Lab Results Component Value Date NA 139 12/13/2021 K 3.9 12/13/2021 CL 108 12/13/2021 CO2 25 12/13/2021 BUN 16 12/13/2021 CREATININE 1.09 12/13/2021 GLUCOSE 109 12/13/2021 CALCIUM 9.3 12/13/2021 PROT 7.2 12/13/2021 ALKPHOS 60 12/13/2021 AST 17 12/13/2021 Pain Score: 0 - No pain No components found for: LVEF, LVEFMODE 2019 1. Left ventricle: Systolic function is normal by the biplane method of disks. The estimated ejection fraction is 60%. 2. Mitral valve: Mild prolapse. There is mild, 1+ regurgitation. 3. Aortic valve: There is mild, 1+ regurgitation. [facility] 03-03-2022 Note Comprehensive PreSur gical History and Physical Name: Ginny Carson : 1975 (Age-46 y.o.) Date of Service: Pt seen/examined on 03/03/2022 Chief Complaint: BULGING NEAR THE UMBILICAL AREA History Of Present Illness: 46 y.o. male who we are asked to see/evaluate by HOLLY Nelson for pre-operative evaluation prior to UMBILICAL HERNIA REPAIR Pt has seen the surgeon HOLLY Nelson and elected for above procedure on 03/05/22 Past Medical History: Past Medical History: Diagnosis Date Anal condyloma Anal condyloma Aortic regurgitation Bicuspid aortic valve Marfan's syndrome Mitral valve prolapse Tinea cruris Ventricular hypertrophy left Past Surgical History: Past Surgical History: Procedure Laterality Date ANUS SURGERY 03/2018 excision condyloma in office HIATAL HERNIA REPAIR 2014 NOSE SURGERY Medications Prior to Admission: Current Outpatient Medications on File Prior to Visit Medication Sig Dispense Refill Cranberry (AZO Cranberry Gummies) 250 MG chewable tablet Chew 2 tablets every morning. econazole nitrate 1 % cream apply to LEFT AND RIGHT FEET (BETWEEN TOES WELL) twice a day UNTIL RESOLVED FIBER ADULT GUMMIES PO Take by mouth. ibuprofen 200 MG tablet Take 800 mg by mouth. Lidocaine, Anorectal, 5 % cream apply A PEA SIZED AMOUNT to affected area ONLY NEEDED lidocaine-EPINEPHrine (Xylocaine W/EPI) 1 %-1:[id number] injection Inject 4 mL into the skin. Multiple Vitamins-Minerals (One-A-Day Mens VitaCraves) chewable tablet Chew. omeprazole (PriLOSEC) [address] capsule Take 1 capsule by mouth every morning (before breakfast). rosuvastatin (Crestor) 10 MG tablet Take 1 tablet by mouth in the morning. No current facility-administered medications on file prior to visit. ANTICOAGULATION: No CHRONIC STEROID USE: No CHRONIC NARCOTIC USE: No Allergies: Patient has no known allergies. If patient has opioid allergy, is it okay to take Acetaminophen: Yes Social History: TOBACCO: reports that he has never smoked. He has never used smokeless tobacco. ETOH: reports current alcohol use of about 1.0 standard drink per week. Social History Substance and Sexual Activity Drug Use No Family History: Family History Adopted: Yes REVIEW OF SYSTEMS: Pertinent positives as noted in the HPI. All other systems reviewed and negative. PHYSICAL EXAM: Vitals: Pulse 78 Temp 37 ?C (98.6 ?F) (Temporal) Resp 20 Ht 1.956 m (6' 5 ) Wt 113 kg (250 lb) BMI 29.65 kg/m? BP 117/66 BMI Classification: Overweight (BMI 25.0-29.9) General appearance: No apparent distress, appears stated age and cooperative. HEENT: Normal cephalic, atraumatic without obvious deformity. Extra ocular muscles intact. Conjunctivae/corneas clear. Neck: Trachea midline. Respiratory: Normal respiratory effort. Clear to auscultation, bilaterally without Rales/Wheezes/Rhonchi. Cardiovascular: Regular rate and rhythm with normal S1/S2 without murmurs Abdomen: Soft, non-tender, non-distended Musculoskeletal: No edema bilaterally. Full ROM of all extremities. Skin: Skin color, texture, turgor normal. No rashes or lesions. Neurologic: Neurovascularly intact without any focal sensory/motor deficits. Grossly non-focal. Psychiatric: Alert and oriented, thought content appropriate, normal insight Labs: Lab Results Component Value Date WBC 6.0 06/27/2021 HGB 14.4 06/27/2021 MCV 90.9 06/27/2021 Lab Results Component Value Date NA 139 12/13/2021 K 3.9 12/13/2021 CL 108 12/13/2021 CO2 25 12/13/2021 BUN 16 12/13/2021 CREATININE 1.09 12/13/2021 GLUCOSE 109 12/13/2021 CALCIUM 9.3 12/13/2021 PROT 7.2 12/13/2021 BILITOT 0.7 12/13/2021 ALKPHOS 60 12/13/2021 AST 17 12/13/2021 LABGLOM 84 12/13/2021 Hosea's Simple Cardiac Risk Index: High-risk surgery (intraperitoneal, intrathoracic or suprainguinal vascular surgery): no Coronary artery disease: no Congestive heart failure: no History of cerebrovascular disease: no Insulin treatment for diabetes mellitus: no Preoperative serum creatinine > 2.0mg/dL: no Total: Interpretation: 0 Points Class I 1 Point Class II 2 Points Class III >=3 Points Class IV PARAG Screening (STOP-Bang) NO NOT COMPLETE IF ALREADY DIAGNOSED WITH PARAG Do you snore loudly (loud enough to be heard through closed doors, or your bed partner elbows you for snoring at night)?yes - 1 Point Do you often feel tired, fatigued, or sleepy during the daytime (such as falling asleep during driving)?no Has anyone observed you stop breathing or choking/gasping during your sleep?yes - 1 Point Do you have or are being treated for high blood pressure? no Body mass index more than 35 kg/m2? no Age older than 50 years old? no Neck size large? (measured around [place]'s apple) For male, is your shirt collar 17 inches or larger? no For female, is your shirt collar 16 inches or larger?no Gender = Male? yes - 1 Point STOP BANG SCORE = 3 (more content not included)... [facility] 04-08-2021 History of Present illness Narrative Pt ambulated to the bathroom with standby assist. Tolerated well. Denied nausea and dizziness but was slightly unsteady on feet. Pt was able to void without difficulty. Pt stated ready to go home upon return to room. IV was removed and pt was given time to get dressed. Pt changed and was discharged home with valuables via wheelchair (pt stated had meds and instructions were given) documented in this encounter [employer] Phone: 04-08-2021 Hospital Discharge instructions Carrillo Fuchs MD - 04/08/2021 Images from the original note were not included. POST-OPERATIVE INSTRUCTIONS FOR ANORECTAL SURGERY OBTAIN THE FOLLOWING FROM THE [facility] PAIN MEDICATION - A narcotic pain prescription may be provided, if not, ibuprofen (Advil)/acetaminophen (Tylenol) can be used to control pain and can be less constipating. DO NOT exceed 4000 mg acetaminophen in 24 hours or 3200 mg ibuprofen in 24 hours. METAMUCIL or similar fiber supplement is recommended on a daily basis. COLACE or MIRALAX is recommended on a daily basis for 2 weeks to avoid hard bowel movements if taking prescription narcotics SPECIAL INSTRUCTIONS Remove the external gauze later in the day or during your first shower/bath. On occasion a dissolvable foam (Gelfoam ) or gauze (Surgicel ) is used in the anal canal. This material will pass spontaneously often turning brown in color. Flush it down the toilet. Avoiding straining or sitting on the toilet for long periods of time or heavy lifting especially the first day after surgery. The increased pressure can aggravate swelling and bleeding. Slight bleeding and drainage is usual after this procedure. Report excessive bleeding or passage of clots to the office. Use non-cotton gauze, sanitary pads or minipads as needed for bleeding and drainage. Warm showers or baths are recommended 2 to 3 times per day or as needed in the post- operative period for discomfort and to keep area clean. You can purchase a hand-held shower sprayer, bidet, sitz bath, or squirt bottle to keep the tissues clean in the cindy-anal area after bowel movements and as needed. Avoid a hot shower immediately after surgery since the sedation used during procedure may precipitate light-headedness or fainting. Resume your regular diet. Report severe constipation or diarrhea to the office. Contact the office immediately if you are unable to urinate or if you have fever or chills. Do Not Use enemas or suppositories after surgery unless specifically instructed by the office. Contact the office the following day after surgery to inform us of your progress and to make your follow-up appointment. Do not drive/operate heavy machinery while you are taking narcotic pain medication or if your pain is too severe to allow you to react appropriately. A small amount of bloody drainage can occur for several days and sometime weeks depending on the nature and severity of the surgical procedure Post-Operative Pain Reduction Strategy to Minimize Opioid Use Please take acetaminophen (Tylenol) and/or NSAIDS (Advil, Motrin) for postoperative pain control before taking opioid prescriptions for pain. You can alternate between the two or stagger them to achieve a more durable pain control regimen. -Do not exceed more than 4g of acetaminophen within 24 hours -Do not exceed more than 3200 mg NSAIDs in 24 hours -Do not take NSAIDs or acetaminophen if you have any contraindications to them. If your pain is not controlled by acetaminophen and/or NSAIDS, please take your opioid prescription (Avalon/vicodin/percocet have tylenol in them) as needed for pain relief and try to use the minimum amount necessary for adequate pain relief. Opioid narcotics can suppress your respiratory drive and decrease your level of alertness. It can also cause your bowel function to slow down and potentially make you constipated. -Do not drive or operate heavy machinery while on narcotic medications. Please properly dispose your excess opioid medications at the appropriate facility/location. An EXAMPLE schedule of how to take these medications is below. It is not necessary to wake yourself from sleep to take pain medication. It is not necessary to take the opioid prescription medication if pain is controlled on tylenol and ibuprofen alone. 6am: 1000 mg tylenol and 1-2 oxycodone (5mg) tablets if needed 9am: 800 mg ibuprofen 12pm: 1000 mg tylenol and 1-2 oxycodone (5mg) tablets if needed 3pm: 800 mg ibuprofen 6pm: 1000 mg tylenol and 1-2 oxycodone (5mg) tablets if needed 9pm: 800 mg ibuprofen 12am: 1000 mg tylenol and 1-2 oxycodone (5mg) tablets if needed 3am: 800 mg ibuprofen 6am: 1000 mg tylenol and 1-2 oxycodone (5mg) tablets if needed PLEASE CALL [phone] if you have any questions documented in this encounter [facility] Work Phone: documented in this encounter [facility] Work Phone: Evaluation note* Diagnosis Lumbar radiculopathy- Primary Thoracic or lumbosacral neuritis or radiculitis, unspecified documented in this encounter [facility]* Diagnosis Lumbar radiculopathy- Primary Thoracic or lumbosacral neuritis or radiculitis, unspecified documented in this encounter [facility]* Diagnosis Lumbar radiculopathy- Primary Thoracic or lumbosacral neuritis or radiculitis, unspecified documented in this encounter [facility]* Diagnosis Lumbar radiculopathy- Primary Thoracic or lumbosacral neuritis or radiculitis, unspecified documented in this encounter [facility]* Diagnosis Lumbar radiculopathy- Primary Thoracic or lumbosacral neuritis or radiculitis, unspecified documented in this encounter [facility] note* Diagnosis Radiculopathy, lumbar region- Primary Thoracic or lumbosacral neuritis or radiculitis, unspecified Radiculopathy, lumbar region Thoracic or lumbosacral neuritis or radiculitis, unspecified documented in this encounter [facility] note* Diagnosis Segmental and somatic dysfunction of lower extremity Pain in right hip documented in this encounter [facility] note* Diagnosis Lumbar radiculopathy- Primary Thoracic or lumbosacral neuritis or radiculitis, unspecified documented in this encounter [facility] note* Diagnosis Rash- Primary Rash and other nonspecific skin eruption documented in this encounter [facility] note* Diagnosis Tinea versicolor- Primary Pityriasis versicolor Rash Rash and other nonspecific skin eruption documented in this encounter [facility] note* Diagnosis Segmental and somatic dysfunction of lower extremity- Primary Pain in right hip documented in this encounter [facility] note* Diagnosis Marfan's disease- Primary Marfan's syndrome GERD without esophagitis Esophageal reflux Hyperlipidemia, mixed Mixed hyperlipidemia Screening for diabetes mellitus Encounter for lipid screening for cardiovascular disease Screening for lipoid disorders Chronic mixed headache syndrome Other headache syndromes Medication management Encounter for long-term (current) use of other medications documented in this encounter [facility] note* Diagnosis STD exposure- Primary Rash of genital area documented in this encounter [facility] note* Diagnosis HIV infection, unspecified symptom status (HCC) documented in this encounter [facility] course Narrative No data available for this section [facility] Hospital Discharge instructions No data available for this section [facility] Instructions* Attachments The following attachments cannot be sent through Care Everywhere. * Tinea Versicolor (Telugu) [facility] No data available for this section [facility] Advance Directives No Advanced Directives Records FoundDocuments on File Type Date Recorded Patient Tow Feeder Expl anation Advance Directives and Living Will Advance Directives and Living Will 12/16/2018 10:34 AM 12/16/2018_Living Wi ll Power of Unit Secy Power of Unit Secy 12/16/2018 10:36 AM 11/26_POA Documents on File Type Date Recorded Patient Tow Feeder Expl anation ACP-Advance Directive ACP-Advance Directive 12/16/2018 10:34 AM 12/16/2018_Living Will ACP-Power of Unit Secy ACP-Power of Unit Secy 12/16/2018 10:36 AM 12/16/2018_POA Documents on File Type Date Recorded Patient Tow Feeder Expl anation ACP-Advance Directive ACP-Power of Unit Secy ACP-Advance Directive 12/16/2018 10:34 AM 12/16/2018_Living Will ACP-Power of Unit Secy 12/16/2018 10:36 AM 12/16/2018_POA Latest Code Status on File Code Status Date Activated Date Inactivated Comments Full Code 04/08/2021 11:49 AM Latest Code Status on File Code Status Date Activated Date Inactivated Comments Full Code 03/05/2022 6:18 AM 03/05/2022 2:02 PM Latest Code Status on File Code Status Date Activated Date Inactivated Comments Full Code 03/05/2022 6:18 AM 03/05/2022 2:02 PM Reason for Referral Status Reason Specialty Diagnoses / Procedures Referre d By Contact Referred To Contact Closed Cardiology Diagnoses Marfan's syndrome Bicuspid aortic valve Mitral valve prolapse Procedures ECHO Complete 2D W Doppler W Color Cosme Asencio MD [address] [place] [address], [address] [place] [phone] Assessments Diagnosis Marfan's syndrome Bicuspid aortic valve Congenital insufficiency of aortic valve Mitral valve prolapse Mitral valve disorders Summary Purpose Family History No Family History Records FoundNo Family History Records FoundNo Family History Records Found No data available for this section No Family History Records FoundNo Family History Records Found Additional Source Comments (unrecognized sect ion and content) No Status Records FoundNo Status Records FoundNo Status Records FoundNo Status Records FoundNo Status Records Found INFORMATION SOURCE (unrecogn ized section and content) DATE CREATED AUTHOR AUTHOR'S ORGANIZ ATION 04/11/2021 [facility] DATE CREATED AUTHOR AUTHOR'S ORGANIZ ATION 12/05/2022 [facility] DATE CREATED AUTHOR AUTHOR'S ORGANIZ ATION 05/08/2023 [facility] ([place]) DATE CREATED AUTHOR AUTHOR'S ORGANIZ ATION 05/23/2023 [facility] Ordered Prescriptions (unrec ognized section and content) Scheduled Active and Recently Administ ered Medications (unrecognized section and content) Continuous Medication Order 04/06/2021 04/07/2021 04/08/2021 lactated ringers infusion IntraVENous, at 50 mL/hr, CONTINUOUS, Starting on Thu04/08/21 at 1215, Upon admission to sameday - please start iv if patient does not have iv access. Use 500ml NS for patients on dialysis., Pre-op (day of surgery) 1215 (Due) PRN Medication Order 04/06/2021 04/07/2021 04/08/2021 0.9 % sodium chloride bolus (COMPLETED) 500 mL (4.52 mL/kg), IntraVENous, at 500 mL/hr, Administer over 1 Hours, ONCE PRN, Nausea, Starting on Thu04/08/21 at 1246, For 1 dose, Use caution in patients with a diagnosis of Heart failure or Kidney failure., PACU only 1520 (New Bag - Prov ider: Rebekah Zhong, DEREJE)1619 (Stopped - Provider: Rebekah Zhong RN) 0.9 % sodium chloride infusion 25 mL, IntraVENous, at 100 mL/hr, PRN, If patient receiving piggyback infusions without ordered maintenance IV fluids or with frequent/long duration piggyback infusions, Starting on Thu04/08/21 at 1149, Administer at the same rate as the piggyback being infused., Pre-op (day of surgery) ALPRAZolam (NIRAVAM) dissolvable tablet 0.25 mg 0.25 mg, Oral, PRN, Anxiety, Starting on Thu04/08/21 at 1149, Pre-op (day of surgery) diphenhydrAMINE (BENADRYL) injection 12.5 mg 12.5 mg, IntraVENous, ONCE PRN, Itching, Starting on Thu04/08/21 at 1246, For 1 dose, for use Sameday and, PACU only fentaNYL (SUBLIMAZE) injection 25 mcg 25 mcg, IntraVENous, EVERY 5 MIN PRN, Pain Moderate (4-6), Starting on Thu04/08/21 at 1246, For 3 doses, Phase I and Phase II- Initial therapy for moderate pain (4-6). Restricted to a 50 minute time frame starting when the patient can verbally state their pain score. If after 2 doses the pain score does not decrease by more than one point, then go to secondary medication. Ifsecondary medications are utilized, do not return to initial therapy medications. SDS and, PACU only fentaNYL (SUBLIMAZE) injection 50 mcg 50 mcg, IntraVENous, EVERY 5 MIN PRN, Pain Severe (7-10), Starting on Thu04/08/21 at 1246, For 3 doses, Phase I or Phase II- Initial therapy for severe pain (7-10). Restricted to a 50 minute time frame starting when the patient can verbally state their pain score. If after 2 doses the pain score does not decrease by more than one point, then go to secondary medication. If secondary medications are utilized, do not return to initial therapy medications.Sameday and, PACU only hydrALAZINE (APRESOLINE) injection 5 mg 5 mg, IntraVENous, EVERY 10 MIN PRN, High Blood Pressure, Starting on Thu04/08/21 at 1246, PRN for SBP > 160 for 2 consecutive measurements, and if one of the following conditions is met: 1) If IV labetolol is ineffective. 2) If HR is under 60. 3) If patient has heart block, COPD or asthma. If both labetalol and hydralazine ineffective, notify anesthesiologist. for use Sameday and, PACU only HYDROmorphone (DILAUDID) injection 0.25 mg 0.25 mg, IntraVENous, EVERY 5 MIN PRN, Pain Moderate (4-6), Starting on Thu04/08/21 at 1246, For 4 doses, Phase I - Secondary therapy to be used after initial therapy medication doses are ineffective (pain score does not decrease by more than 1 point). If secondary medications are utilized, do not return to initial therapy medications., PACU only HYDROmorphone (DILAUDID) injection 0.5 mg 0.5 mg, IntraVENous, EVERY 5 MIN PRN, Pain Severe (7-10), Starting on Thu04/08/21 at 1246, For 4 doses, Phase I - Secondary therapy to be used after initial therapy medication doses are ineffective (pain score does not decrease by more than 1 point). If secondary medications are utilized, do not return to initial therapy medications., PACU only labetalol (NORMODYNE;TRANDATE) injection 5 mg 5 mg, IntraVENous, EVERY 10 MIN PRN, High Blood Pressure, Starting on Thu04/08/21 at 1246, PRN for SBP >160 for 2 consecutive measurements, if HR is 60 or greater. If beta brianne is contraindicated (HR less than 60, heart block, COPD or asthma) use hydralazine IV order. for use Sameday and, PACU only lidocaine PF 1 % injection 1 mL 1 mL, IntraDERmal, ONCE PRN, IV start, Starting on Thu04/08/21 at 1149, For 1 dose, Pre-op (day of surgery) meperidine (DEMEROL) injection 12.5 mg 12.5 mg, IntraVENous, EVERY 5 MIN PRN, Shivering, , Starting on Thu04/08/21 at 1246, May give every 5 minutes to max of 50mg. for use Sameday and, PACU only ondansetron (ZOFRAN) injection 4 mg (COMPLETED) 4 mg, IntraVENous, ONCE PRN, Nausea, Starting on Thu04/08/21 at 1246, For 1 dose, Initial antiemetic therapy. For use sameday and, PACU only 1543 (Given - Provid er: Rebekah Zhong RN) oxyCODONE (ROXICODONE) immediate release tablet 10 mg(Linked Group 1) 10 mg, Oral, PRN, Pain Severe (7-10), Starting on Thu04/08/21 at 1246, For 1 dose, PHASE II, PACU only oxyCODONE (ROXICODONE) immediate release tablet 5 mg(Linked Group 1) 5 mg, Oral, PRN, Pain Moderate (4-6), Starting on Thu04/08/21 at 1246, For 1 dose, PHASE II, PACU only promethazine (PHENERGAN) injection 6.25 mg 6.25 mg, IntraVENous, ONCE PRN, Nausea, Starting on Thu04/08/21 at 1246, For 1 dose, Caution if used IV:Check IV site for infiltrate prior to and during administration. Secondary antiemetic therapy. For use sameday and For IV administration, dilute to 10ml with normal saline. Must be administered over at least 10 minutes., PACU only sodium chloride flush 0.9 % injection 5-40 mL 5-40 mL, IntraVENous, PRN, Line Care, Starting on Thu04/08/21 at 1149, For Line Patency: Peripheral IV = 5 mL; Midline or Central Line = 10 mL/lumen. If following IV push medication, administer flush at same rate as the IV push. Flush volume is determined by type of infusion therapy being given. For non-viscous solutions use: Peripheral IV = 5 mL Midline or Central Line = 10 mL/lumen For viscous solutions (i.e. blood components, parenteral nutrition, contrast media, or after obtaining blood sample) use: Peripheral IV = 10 mL Midline or Central Line = 20 mL/lumen, Pre-op (day of surgery) Linked Groups Order Group 1: oxyCODONE (ROXICODONE) immediate release tablet 5 mgJump to med 5 mg, Oral, PRN, Pain Moderate (4-6), Starting on Thu04/08/21 at 1246, For 1 dose
PHASE II
PACU only Or oxyCODONE (ROXICODONE) immediate release tablet 10 mgJump to med 10 mg, Oral, PRN, Pain Severe (7-10), Starting on Thu04/08/21 at 1246, For 1 dose
PHASE II
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 Relationship Specialty Start Date End Date Cosme Asencio MD [address] [place] [phone] PCP - General 12/16/[address] Relationship Specialty Start Date End Date Cosme Asencio MD [address] [place] [phone] PCP - General 12/16/[address] Relationship Specialty Start Date End Date Cosme Asencio MD [address] [place], [place] [address] [phone] PCP - General 12/16/[address] Relationship Specialty Start Date End Date Cosme Asencio [facility] [place] [address] PCP - General 12/16/[address] Relationship Specialty Start Date End [place] [address] PCP - General 12/16/[address] Relationship Specialty Start Date End [place] [address] PCP - General 12/16/[address] Relationship Specialty Start Date End [place] [address] PCP - General 12/16/[address] Relationship Specialty Start Date End Date Cosme Asencio [facility] [place] [address] PCP - General 12/16/[address] Relationship Specialty Start Date End [place] [address] PCP - General 12/16/[address] Relationship Specialty Start Date End Date Cosme Asencio [facility] [place] [address] PCP - General 12/16/[address] Relationship Specialty Start Date End Date Cosme Asencio [facility] [place] [phone] PCP - General 12/16/[address] Relationship Specialty Start Date End Date James Skinner MD [address] [place] [address] PCP - General Family Medicine 12/16/[address] Relationship Specialty Start Date End Date James Skinner MD [address] [place] [address] PCP - General Family Medicine 12/16/[address] Relationship Specialty Start Date End Date James Skinner MD [address] [place] [address] PCP - General Family Medicine 12/16/[address] Relationship Specialty Start Date End Date James Skinner MD [address] [place], [place] [phone] PCP - General Family Medicine 12/16/22 Reason for Visit (unrecogniz ed section and content) Specialty Diagnoses / Procedures Referred By Contac t Referred To Contact Physical Therapy Diagnoses Numbness of right foot Lumbar spondylosis Chronic lumbar radiculopathy Sural neuropathy, right Procedures LA OFFICE/OUTPATIENT NEW HIGH MDM 60-74 MINUTES Meera Blair MD [address] [place] [address] [place] [address] Referral ID Status Reason Start Date Expiration Date Visits Requested Visits Authorized [id number] Authorized Specialty Services Required 06/12/2022 06/12/2023 99 99 Reason Comments PT Treatment Specialty Diagnoses / Procedures Referred By Contac t Referred To Contact Physical Therapy Diagnoses Lumbar radiculopathy Procedures LA OFFICE/OUTPATIENT NEW HIGH MDM 60-74 MINUTES Peter Briseno MD [address] [facility] [address] [place] [address] [facility] [address] [place] [address] Referral ID Status Reason Start Date Expiration Date Visits Requested Visits Authorized [id number] Authorized Eval and Treat 05/27/2022 11/23/2022 60 60 Specialty Diagnoses / Procedures Referred By Contnewton t Referred To Contact Physical Therapy Diagnoses Lumbar radiculopathy Procedures LA OFFICE/OUTPATIENT NEW HIGH MDM 60-74 MINUTES Peter Briseno MD [address] [facility] [address] [place] [address] [facility] [address] [place] [address] Reason Comments Rash Seen about 10 days a go-unsure when it had started Reason Comments Rash Itching Medication Problem Started pepcid on Mo nday (x2 pills) and felt like his skin is crawling Reason Comments Establish Care Reason Comments Pain Scrotum x 7 days Reason Comments Results Reason Comments Patient Update Reason Comments Infectious Disease Source Comments (unrecognize d section and content) In the event this informatio n is protected by the Federal Confidentiality of Alcohol and Drug Abuse Patient Records regulations: The Federal rules restrict any use of the information to criminally investigate or prosecute any alcohol or drug abuse patient.[facility] Center[facility] the event this information is protected by the Federal Confidentiality of Alcohol and Drug Abuse Patient Records regulations: The Federal rules restrict any use of the information to criminally investigate or prosecute any alcohol or drug abuse patient.[facility] Center[facility] the event this information is protected by the Federal Confidentiality of Alcohol and Drug Abuse Patient Records regulations: The Federal rules restrict any use of the information to criminally investigate or prosecute any alcohol or drug abuse patient.[facility] Center[facility] the event this information is protected by the Federal Confidentiality of Alcohol and Drug Abuse Patient Records regulations: The Federal rules restrict any use of the information to criminally investigate or prosecute any alcohol or drug abuse patient.[facility] CenterIn the event this information is protected by the Federal Confidentiality of Alcohol and Drug Abuse Patient Records regulations: The Federal rules restrict any use of the information to criminally investigate or prosecute any alcohol or drug abuse patient.[facility] FOR RECORDS PERTAINING TO PATIENTS WHO ARE OR HAVE BEEN ENROLLED IN A CHEMICAL DEPENDENCY/SUBSTANCEABUSE PROGRAM, SOME INFORMATION MAY BE OMITTED. This clinical summary was aggregated from multiple sources. Caution should be exercised in using it in the provision of clinical care. This summary normalizes information from multiple sources, and as a consequence, information in this document may materially change the coding, format and clinical context of patient data. In addition, data may be omitted in some cases. CLINICAL DECISIONS SHOULD BE BASED ON THE PRIMARY CLINICAL RECORDS. [facility] [employer] [facility]. provides no warranty or guarantee of the accuracy or completeness of information in this document.
== END 2023-05-29 14:08 | disposition home or self-care (01) ==
PROVIDERS: Emergency Provider Emergency Medicine; PCP Family Medicine; Visit Provider Emergency Medicine
DX: N13.2 Hydronephrosis with renal and ureteral calculous obstruction (principal); B20 Human immunodeficiency virus [HIV] disease
CPT/HCPCS: 74176; 80048; 81001; 85025; 96361; 96374; 96375; 99283; J7030; A4216; J2405

== ENCOUNTER 2023-06-16 17:27 | Observation (INO) | payer BC, SELFPAY ==
[2023-06-16 17:28] VITALS: BP 136/89; PULSE 91; RESP 16; TEMP 36.6; O2SAT 99; BMI 30.7
--- NOTE | 2023-06-16 18:09 | CT_ITS ---
STUDY: CT ABDOMEN AND PELVIS WITHOUT CONTRAST REASON FOR EXAM: Male, 47 years old. right flank pain RADIATION DOSAGE (If Supplied By Facility): CTDIvol = ( 16.93 ) mGy, DLP = ( 955.89 ) mGycm TECHNIQUE: Transaxial images were obtained from the dome of the diaphragm to the symphysis pubis without oral contrast, and without intravenous contrast. Sagittal and coronal images were reconstructed. Individualized dose optimization techniques were used for this CT. COMPARISON: 05/29/23. FINDINGS: 3 small nodules are seen in the right middle lobe. Largest is 5 mm seen on axial image 2. Further evaluation recommended with CT of the chest. Normal liver. Normal gallbladder and extrahepatic biliary system. Normal spleen. Normal pancreas. Normal bilateral adrenal glands. There is right perinephric stranding and right hydronephrosis related to a 6 mm right UPJ stone seen on coronal image 64. Normal left kidney. Normal visualized stomach. Normal small intestine. Normal colon. The appendix is visualized and appears normal. Normal abdominal aorta. Normal inferior vena cava. Normal retroperitoneum. Normal urinary bladder. There is a right-sided inguinal hernia containing adipose tissue. There are degenerative changes of the visualized lower lumbar spine. CT/Abdomen/Pelvis without Cont IMPRESSION: Obstruction of the right kidney from a 6 mm right UPJ stone. Electronically Signed: Roger Dey MD at 18:56 EST ,
--- NOTE | 2023-06-16 18:17 | EDS_ITS ---
HPI History of Present Illness Chief Complaint: Flank Pain Informant: patient Onset/Context/Timing Onset: Weeks Context: Gradual Onset Timing: Waxes and wanes Narrative Narrative: Patient presents secondary to continued right flank pain. He was seen in the emergency room on May 29 with right flank pain and was found to have a 2 mm stone at the right UVJ and a 5.4 mm stone in the right upper pole. He states has been having waxing and waning pain since he was seen previously. Last evening he urinated blood and some debris. He had increased pain since that time. No fever or chills. He has felt nauseated today with pain. [facility] Medical History (Updated 06/16/23 @ 18:[address] Camila Villagran MD) History of kidney stones HIV (human immunodeficiency virus infection) Marfan syndrome Pruritus ani Home Medications bictegravir 50 mg-emtricitabine 200 mg-tenofovir alafenam 25 mg tablet (Biktarvy) 1 tab PO DAILY 05/29/23 [History Last Taken Unknown] hydrocodone-acetaminophen 5-325mg 5mg-325mg 1 tab PO Q6H PRN PRN Pain 3 days #10 TABLETS 05/29/23 [Rx Last Taken Unknown] ibuprofen 600 mg tablet 600 mg PO Q8H PRN PRN pain #20 TABLETS 05/29/23 [Rx Last Taken Unknown] omeprazole 40 mg capsule,delayed release 40 mg PO DAILY 05/29/23 [History Last Taken Unknown] ondansetron 4 mg disintegrating tablet 4 mg PO Q8H PRN PRN Nausea #10 tabs 05/29/23 [Rx Last Taken Unknown] rosuvastatin 10 mg tablet (Crestor) 10 mg PO DAILY 05/29/23 [History Last Taken Unknown] tamsulosin 0.4 mg capsule (Flomax) 0.4 mg PO DAILY #7 caps 05/29/23 [Rx Last Taken Unknown] Allergy/AdvReac Type Severity Reaction Status Date / Time No Known Allergies Allergy Verified 06/16/23 17:29 Surgical History History of hernia repair Social History household members: spouse Smoking Status: Never smoker ROS ROS ED Constitutional Constitutional ED: Denies chills or fever(s) Eyes Eyes: Denies discharge from eye(s) ENT ENT ED: Denies discharge from eye(s), rhinorrhea or sore throat Cardiovascular Cardiovascular: Denies chest pain or palpitations Respiratory/Chest Respiratory/Chest: Denies cough or dyspnea Gastrointestinal Gastrointestinal: Reports abdominal pain and nausea; Denies diarrhea or vomiting Genitourinary Genitourinary ED: Reports hematuria; Denies dysuria Musculoskeletal Musculoskeletal: Reports back pain; Denies extremity pain Integumentary Denies Abrasions or rash Neurologic Neurologic: Denies headache(s) or weakness Psychiatric Psychiatric: Denies anxiety or depression Allergic/Immunologic Allergic/Immunologic ED: Denies lip swelling or urticaria EXAM Physical Exam Const Vital Signs: 06/16/23 17:28 Temperature 98 F Temperature Source Temporal Pulse Rate 91 Respiratory Rate 16 Blood Pressure 136/89 H Blood Pressure Mean 104 Pulse Ox 99 Oxygen Delivery Method Room Air Positive well nourished and well developed General Appearance ED: well developed HEENT Reports moist mucous membranes Eyes EOMs intact bilaterally Chest Wall inspection of chest normal and palpation of chest normal Resp normal respiratory effort and clear to auscultation bilaterally Cardio regular rate and regular rhythm GI GI Narrative: Abdomen soft with no reproducible tenderness. Back/Spine General Back: CVA tenderness right Neuro oriented x3 and no sensory deficits noted Motor Exam: strength 5/5 throughout Psych mental status grossly normal Skin no rashes or lesions noted MDM MDM MDM Narrative Medical decision making narrative: Patient's recent ED visit is reviewed. IV line established. Patient given morphine, Toradol, Zofran, and IV fluids. Labwork obtained to evaluate for leukocytosis, anemia, and electrolyte derangement. Urinalysis obtained to evaluate for infection/hematuria. CT scan the flank obtained to evaluate for hydronephrosis and renal stone position. History & Record Review Discussion w/independent historian: Patient Additional record(s) reviewed:: Prior ED visit and Prior labs Lab Data Attestation: I reviewed the patient's lab results. Labs: Laboratory Results - last 24 hr 06/16/23 06/16/23 17:45 19:34 WBC 9.3 RBC 4.90 Hgb 15.0 Hct 43.7 MCV 89.2 MCH 30.6 MCHC 34.3 RDW Std Deviation 42.6 RDW Coeff of Dennis 13.1 Plt Count 220 MPV 10.1 Immature Gran % (Auto) 0.300 Neut % (Auto) 70.5 H Lymph % (Auto) 17.3 L Campbell % (Auto) 10.5 H Eos % (Auto) 1.0 Baso % (Auto) 0.4 Absolute Neuts (auto) 6.6 Absolute Lymphs (auto) 1.61 Nucleated RBC % 0 Sodium 143 Potassium 3.4 L Chloride 112 H Carbon Dioxide 24.0 Anion Gap 7 BUN 19 H Creatinine 1.85 H Estim Creat Clear Calc 68.64 Est GFR (MDRD) Af Amer 50 L Est GFR (MDRD) Non-Af 41 L BUN/Creatinine Ratio 10.3 Glucose 105 Calcium 8.7 Urine Color Yellow Urine Clarity Clear Urine pH 5.0 Ur Specific [place] 1.025 Urine Protein 30 H Urine Glucose (UA) Normal Urine Ketones 50 H Urine Occult Blood 250 H Urine Nitrite Negative Urine Bilirubin Negative Urine Urobilinogen Normal Ur Leukocyte Esterase 25 H Urine RBC 5-10 SEEN Urine WBC 0-5 SEEN Ur Squamous Epith Cells 0 SEEN Calcium Oxalate Crystal 1+ Urine Bacteria 0 SEEN Urine Mucus 0 SEEN Radiography Diagnostic Testing: Clinical Impression(s) from Imaging Studies Abdomen/Pelvis CT 06/16/23 18:09 IMPRESSION: Obstruction of the right kidney from a 6 mm right UPJ stone. Electronically Signed: Roger Dey MD at 18:56 EST , Treatment and Re-Evaluation :: CBC was white count 9.3 with 70% neutrophils. Hemoglobin is 15. Chemistry studies significant for slightly low potassium at 3.4. BUN is 19 and creatinine is 1.85. This is compared to a previous creatinine of 1.16. Glucose is normal at 105. Urinalysis reveals RBCs but no evidence of acute infection. 1+ calcium oxalate crystals are noted. CT scan of the abdomen pelvis reveals obstruction of the right kidney from a 6 mm right UPJ stone. On repeat evaluation patient appears more comfortable. He states his pain was significantly improved but is now starting to return. I will give him another dose of morphine. Discharge Plan Triage Chief Complaint: Flank Pain ED Provider: Camila Villagran Dx/Rx/DC Orders Prescriptions: No Action omeprazole 40 mg capsule,delayed release(DR/EC) 40 mg PO DAILY Biktarvy 50-200-25 mg tablet 1 tab PO DAILY rosuvastatin [Crestor] 10 mg tablet 10 mg PO DAILY ibuprofen 600 mg tablet 600 mg PO Q8H PRN PRN (Reason: pain) Qty: 20 0RF ondansetron 4 mg tablet,disintegrating 4 mg PO Q8H PRN PRN (Reason: Nausea) Qty: 10 0RF hydrocodone-acetaminophen 5-325 mg tablet 1 tab PO Q6H PRN PRN (Reason: Pain) 3 Days Qty: 10 0RF tamsulosin [Flomax] 0.4 mg capsule 0.4 mg PO DAILY Qty: 7 0RF Primary Care Provider: James Gamble Referrals: James Gamble MD [Primary Care Provider] -
[2023-06-16] MEDS: 0.9% Normal Saline (1000mL) 1,000 ML 150 ML IV (18:20)
[2023-06-16] MEDS: Morphine 4 MG/ML Syringe IV ×2 (18:20→21:31)
[2023-06-16] MEDS: Ondansetron 4 MG/2 ML Vial IV (18:20)
[2023-06-16] MEDS: Ketorolac 15 MG/ML Vial IV (18:20)
[2023-06-16 18:26] LABS: Absolute Lymphocyte Count 1.61 X10^3/uL (0.83-4.51); Absolute Neutrophil Count 6.6 X10^3/uL (2.0-7.7); Basophil# 0.04 X10^3/uL; Basophil% 0.4 % (0-1); Eosinophil# 0.09 X10^3/uL; Hematocrit 43.7 % (40-54); Lymphocyte # 1.61 X10^3/ul (0.83-4.51); Lymphocyte % 17.3 % (19-41); Mean Corp Hgb Conc 34.3 g/dL (32-36); Mean Corpuscular Hgb 30.6 pg (27.0-32.0); Mean Corpuscular Volume 89.2 fL (80-94); Mean Platelet Vol. 10.1 fl (6.2-12.0); Monocyte# 0.98 X10^3/uL; Monocyte% 10.5 % (0-10); NRBC Flagged by Analyzer 0 % (0-5); Neutrophil # 6.56 X10^3/uL (2.7-7.7); Neutrophil % 70.5 % (47-70); Platelet Count 220 K/mm3 (150-450); RBC Distribution Width CV 13.1 % (11.6-14.6); RBC Distribution Width SD 42.6 fl (35.1-43.9); White Blood Count 9.3 K/mm3 (4.4-11.0)
[2023-06-16 18:36] LABS: Anion Gap 7 (5-15); BUN 19 mg/dL (7-18); BUN/Creat Ratio 10.3 RATIO (10-20); Calcium,Total 8.7 mg/dL (8.5-10.1); Chloride 112 mmol/L (98-107); Creatinine, Serum 1.85 mg/dL (0.70-1.30); EST Glomerular Filtration Rate 41 mL/min (>60); Est Glom Filt Rate - Afr Amer 50 mL/min (>60); Estimated Creatinine Clearance 68.64 ml/min; Glucose 105 mg/dL (74-106); Potassium 3.4 mmol/L (3.5-5.1); Sodium Level 143 mmol/L (136-145)
[2023-06-16] MEDS: 0.9% Normal Saline (1000mL) 1,000 ML 999 ML IV (18:49)
[2023-06-16 19:42] LABS: Bacteria 0 SEEN /hpf (None Seen); Mucous, Urine 0 SEEN /hpf (<or=2+); Squamous Epithelial Cells - UA 0 SEEN /hpf (0-5)
[2023-06-16 19:49] LABS: Color, Urine Yellow (Yellow); Glucose, Dipstick Normal (Normal); Ketone-Dipstick 50 mg/dl (Negative); Leukocyte Esterase-Dipstick 25 /ul (Negative); Nitrite-Dipstick Negative (Negative); Occult Blood-Urine 250 /ul (Negative); Protein-Dipstick 30 mg/dl (Negative); Specific Gravity, Urine 1.025 (1.002-1.030); Urine Bilirubin Dipstick Negative (Negative); Urine Clarity Clear (Clear); Urine Urobilinogen Normal (Normal)
[2023-06-16 19:56] LABS: Calcium Oxalate Crystals Ur 1+ /hpf (<or=2+); Red Blood Cells-Urine 5-10 SEEN /hpf (0-5); White Blood Cells 0-5 SEEN /hpf (0-5)
--- OUTSIDE RECORDS SUMMARY | 2023-06-16 20:55 | XMS RPT_ITS | CCD ---
Author Name Unknown Address [address] [place] [address] Organization [facility] Care Team Providers Care Product Safety Technician Name Role Phone Cosme Asencio Primary Care [...] Attending Unavailable SERGIO, COSME Primary Care Unavailable BAVPETER LEWIS Referring Unavailable BAVJOSHUA, PETER Attending Unavailable Sergio JIMENES, Cosme Denise Primary Care Provider James Skinner MD Primary Care Provider JAMES SKINNER MD Primary Care Physician [phone] JAMES SKINNRE MD Primary Care Unavailable DISHA SENA DO Attending Unavailable JAMES SKINNER MD Primary Care Unavailable DISHA SENA DO Attending Unavailable JAMES SKINNER MD Primary Care Unavailable DISHA SENA DO Attending Unavailable JAMES SKINNER MD Primary Care Unavailable RAQUEL MAE-INSTRUMENT TESTER, ARNALDO Attending U lesaable JAMES SKINNER Attending Unavailable JAMES SKINNER Primary Care Unavailable SERGIO, COSME VANESSA Primary Care Unavailabl e RENÉE GIBSON Attending Unavailable SERGIO, COSME VANESSA Primary Care Unavailcharli e JAMES SKINNER Primary Care Unavailable RENÉE GIBSON [...] sources) Other Propensity to adverse reactions 03-27-2018 [facility] [place], [place] Medications Current Medications Medication Drug Class(es) Dates Sig (Normalized) Sig (Original) acetaminophen 325 mg / oxyCODONE hydrochloride 5 mg oral tablet (2 sources) Opioid Agonist Start: 04-08-2021 End: 04-11-2021 oxyCODONE-acetamino phen (PERCOCET) 5-325 MG per tablet Indications: Anal [...] (1 source) Start: 04-08-2021 lactated ringers infusion 1 ml diphenhydrAMINE hydrochloride 50 mg/ml cartridge (1 source) Histamine-1 Receptor Antagonist Start: 04-08-2021 End: 04-08-2021 diphenhydrAMINE (BENADRYL) injection 12.5 mg econazole nitrate 10 mg/ml topical cream (14 sources) Azole Antifungal Start: 10-25-2021 econazole nitrate 1 % cream apply to LEFT AND RIGHT FEET (BETWEEN TOES WELL) twice a day UNTIL RESOLVED 0 10/25/2021 Active EPINEPHrine 0.01 mg/ml / lidocaine hydrochloride 10 mg/ml injectable solution (2 sources) Antiarrhythmic, alpha-Adrenergic Agonist, beta-Adrenergic Agonist, Catecholamine, Amide Local Anesthetic Start: 03-30-2018 lidocaine-EPINEPHri ne 1 percent-[id number] injection 4 mL 2 ml fentaNYL 0.05 mg/ml injection (2 sources) Opioid Agonist Start: 04-08-2021 fentaNYL (SUBLIMAZE) injection 50 mcg Completed/Discontinued Medications Medication Drug Class(es) Dates Sig [...] disease without esophagitis] Onset: 08-01-2019 08-01-2019 Chronic Heart valve disorders (18 sources) Mitral valve prolapse; Translations: [Nonrheumatic mitral (valve) prolapse] Onset: 11-01-2019 11-01-2019 Chronic HIV infection (5 sources) Human immunodeficiency virus infection; Translations: [Human immunodeficiency virus [HIV] disease] Onset: 01-09-2023 01-11-2023 Chronic Immunizations and screening for infectious disease (4 sources) Exposure to sexually transmissible disorder; Translations: [Contact with and (suspected) exposure to infections with a predominantly sexual mode of transmission] Onset: 04-29-2023 01-02-2023 Episodic Mycoses (5 sources) Pityriasis versicolor; Translations: [Pityriasis versicolor] Onset: 10-29-2022 10-22-2022 Episodic Other congenital anomalies (20 sources) Marfan's syndrome; Translations: [Marfan's syndrome, unspecified] Onset: 11-01-2019 11-01-2019 Chronic Other congenital anomalies (2 sources) Marfan's syndrome, unspecified; Translations: [Marfan's syndrome, unspecified] Onset: 02-06-2022 Chronic Other connective tissue disease (3 sources) Pain in right leg; Translations: [Pain in right leg] Onset: 06-12-2022 Episodic Other connective tissue disease (1 source) Pain in right lower limb; Translations: [Pain in right leg] 06-15-2023 Episodic Other nervous system disorders (3 sources) Anesthesia of skin; Translations: [Anesthesia of skin] Onset: 03-24-2022 Episodic Other nervous system disorders (1 source) Numbness of lower limb ; Translations: [Anesthesia of skin] 06-15-2023 Episodic Other screening for suspected conditions (not [...] and other nonspecific skin eruption] 01-02-2023 Episodic Sexually transmitted infections (not HIV or hepatitis) (2 sources) Syphilis; Translations: [Syphilis, unspecified] Onset: 05-21-2023 05-21-2023 Episodic Unclassified (2 sources) Post-op; Translations: [Post-op] [...] Dysuria; Translations: [Dysuria] Onset: 06-25-2021 02-06-2022 Episodic Headache; including migraine (20 sources) Headache disorder; Translations: [Other headache syndrome] Onset: 06-27-2021 02-06-2022 Episodic Hemorrhoids (20 sources) Hemorrhoids; Translations: [Unspecified hemorrhoids] Onset: 05-20-2022 06-30-2022 Episodic Mood disorders (13 sources) Mood disorders Onset: 06-11-2022 Resolved: 06-11-2022 06-11-2022 Other aftercare (8 sources) Patient encounter status; Translations: [Other fci (current) drug therapy] Onset: 12-16-2022 12-16-2022 Episodic Other aftercare (1 source) Other fci (current) drug therapy; Translations: [Medication management] Onset: [...] Date Time Vital Sign Value Performing Clinician Bita jameson 01-02-2023 09:25-0400 Body weight 101.15 kg James Skinner MD Work Phone: [facility] 01-02-2023 09:25-0400 Diastolic blood pressure 80 mm[Hg] James Skinner MD Work Phone: [facility] 01-02-2023 09:25-0400 Heart rate 74 /min James Skinner MD Work Phone: [facility] 01-02-2023 09:25-0400 Respiratory rate 12 /min James Skinner MD Work Phone: [facility] 01-02-2023 09:25-0400 Systolic blood pressure 118 mm[Hg] James Skinner MD Work Phone: [facility] 12-16-2022 07:10-0400 Body height 192 cm Renée Gibson PA-C Work Phone: [facility] 12-16-2022 07:10-0400 Body temperature 97.59 [degF] Renée Gibson PA-C Work Phone: [facility] 12-16-2022 07:10-0400 Body weight 103.87 kg Renée Gibson PA-C Work Phone: [facility] 12-16-2022 07:10-0400 Diastolic blood pressure 62 mm[Hg] Renée Gibson PA-C Work Phone: [facility] 12-16-2022 07:10-0400 Heart rate 78 /min Renée Gibson PA-C Work Phone: [facility] 12-16-2022 07:10-0400 Respiratory rate 18 /min Renée Gibson PA-C Work Phone: [facility] 12-16-2022 07:10-0400 Systolic blood pressure 100 mm[Hg] Renée Gibson PA-C Work Phone: [facility] 10-22-2022 09:05-0400 Body mass index (BMI) [Ratio] 27.68 kg/m2 Rachel Bridenthal DIFFUSION OPERATOR - INSTRUMENT TESTER Work Phone: [facility] [employer] 10-22-2022 09:05-0400 Body temperature 98.2 [degF] Rachel Bridenthal DIFFUSION OPERATOR - INSTRUMENT TESTER Work Phone: [facility] [employer] 10-22-2022 09:05-0400 Body weight 105.87 kg Rachel Bridenthal DIFFUSION OPERATOR - INSTRUMENT TESTER Work Phone: [facility] [employer] 10-22-2022 09:05-0400 Diastolic blood pressure 72 mm[Hg] Rachel Bridenthal DIFFUSION OPERATOR - INSTRUMENT TESTER Work Phone: [facility] [employer] 10-22-2022 09:05-0400 Heart rate 74 /min Rachel Bridenthal DIFFUSION OPERATOR - INSTRUMENT TESTER Work Phone: [facility] [employer] 10-22-2022 09:05-0400 Respiratory rate 16 /min Rachel Bridenthal DIFFUSION OPERATOR - INSTRUMENT TESTER Work Phone: [facility] [employer] 10-22-2022 09:05-0400 SaO2% (BldA) [Mass fraction] 99 % Rachel Bridenthal DIFFUSION OPERATOR - INSTRUMENT TESTER Work Phone: [facility] [employer] 10-22-2022 09:05-0400 Systolic blood pressure 113 mm[Hg] Rachel Bridenthal DIFFUSION OPERATOR - INSTRUMENT TESTER Work Phone: [facility] [employer] 10-16-2022 14:55-0400 Body mass index (BMI) [Ratio] 28.08 kg/m2 Rachel Bridenthal DIFFUSION OPERATOR - INSTRUMENT TESTER Work Phone: [facility] [employer] 10-16-2022 14:55-0400 Body temperature 98.2 [degF] Rachel Bridenthal DIFFUSION OPERATOR - INSTRUMENT TESTER Work Phone: [facility] [employer] 10-16-2022 14:55-0400 Body weight 107.41 kg Rachel Bridenthal DIFFUSION OPERATOR - INSTRUMENT TESTER Work Phone: [facility] 10-16-2022 14:55-0400 Diastolic blood pressure 74 mm[Hg] Rachel Bridenthal DIFFUSION OPERATOR - INSTRUMENT TESTER Work Phone: [facility] 10-16-2022 14:55-0400 Heart rate 75 /min Rachel Bridenthal DIFFUSION OPERATOR - INSTRUMENT TESTER Work Phone: [facility] 10-16-2022 14:55-0400 Respiratory rate 20 /min Rachel Bridenthal DIFFUSION OPERATOR - INSTRUMENT TESTER Work Phone: [facility] 10-16-2022 14:55-0400 Systolic blood pressure 111 mm[Hg] Rachel Bridenthal DIFFUSION OPERATOR - INSTRUMENT TESTER Work Phone: [facility] 04-08-2021 16:30-0500 Diastolic blood pressure 70 mm[Hg] Yayo Cid MD Work Phone: [facility] 04-08-2021 16:30-0500 Heart rate 85 /min Yayo Cid MD Work Phone: [facility] 04-08-2021 16:30-0500 Respiratory rate 16 /min Yayo Cid MD Work Phone: [facility] 04-08-2021 16:30-0500 SaO2% (BldA) [Mass fraction] 99 % Yayo Cid MD Work Phone: [facility] 04-08-2021 16:30-0500 Systolic blood pressure 130 mm[Hg] Yayo Cid MD Work Phone: [facility] 04-08-2021 16:00-0500 Body temperature 97 [degF] Yayo Cid MD Work Phone: [facility] 04-08-2021 11:53-0500 Body height 195.6 cm Yayo Cid MD Work Phone: [facility] 04-08-2021 11:53-0500 Body mass index (BMI) [Ratio] 28.93 kg/m2 Yayo Cid MD Work Phone: [facility] 04-08-2021 11:53-0500 Body weight 110.68 kg Yayo Cid MD Work Phone: [facility] Encounters Encounter Date Encounter Type Care Provider Facility Start: 06-15-2023 End: 06-15-2023 ambulatory JAMES SKINNER Facility:[facility] [place] Start: 06-15-2023 End: 06-15-2023 ambulatory Emg 850) Neurology Start: 06-15-2023 End: 06-15-2023 Patient encounter procedure Emg 1 Neur [facility] (Max Weight: 850) [facility] Start: 06-09-2023 ambulatory James alatorre MD Work Phone: [facility] Procedures Date Procedure Procedure Detail Performing Clinician Start: 06-15-2023 Nerve conduction yaron dies 5-6 studies Renée Gibson PA-C Work Phone: Start: 05-12-2023 Lipid 1995 panel - S khurram or Plasma James Skinner MD Work Phone: Start: 10-29-2022 Lipid 1996 panel - S khurram or Plasma Hunter Joel Work Phone: Start: 10-27-2022 Adult depression scr eening assessment Hunter Joel Work Phone: Start: 10-16-2022 Complete blood count with white cell differential, automated Rachel Serge DIFFUSION OPERATOR - INSTRUMENT TESTER Work Phone: Start: 10-16-2022 Comprehensive metabo lic panel Rachel Serge DIFFUSION OPERATOR - INSTRUMENT TESTER Work Phone: Start: 06-11-2022 Adult depression scr eening assessment Peter Briseno MD Work Phone: Start: 12-13-2021 Lipid 1995 panel - S khurram or Plasma Jakub Schaeffer BRYCE Start: 04-08-2021 OPERATIVE REPORT 3m Sca nning Start: 04-08-2021 End: 04-08-2021 Colonoscopy 3m Scanning Start: 12-20-2019 Echo tthrc r-t 2d w/wom-mode compl spec&colr d Cosme Asencio Work Phone: Start: 11-01-2019 Radex hips bilateral with pelvis minimum 5 views Cosme Rochamer Work Phone: Plan of Treatment Date Care Activity Detail Author Start: 05-21-2033 Urine microalbumin profile DTa P,Tdap,Td Vaccine (2 - Td or Tdap) [facility] Start: 04-08-2031 Screening for malign ant neoplasm of colon [facility] Start: 05-12-2028 Lipid panel Lipid Screening [facility] Start: 10-30-2027 Lipid 1996 panel - S khurram or Plasma Lipid Screening [facility] Start: 10-30-2027 Lipid panel Lipid Panel [facility] Start: 10-30-2027 LIPID SCREEN LIPID SCREEN [facility] Start: 12-13-2026 Lipid panel Lipid Panel [facility] Start: 05-12-2026 Diabetes Screening Diabetes Screenin g [facility] Start: 01-09-2026 Diabetes Screening Diabetes Screenin g [facility] Start: 10-29-2025 Diabetes mellitus screening Diabetes Screening [facility] Start: 10-29-2025 DIABETES SCREEN DIABETES SCREEN [facility] Start: 10-29-2025 Diabetes Screening Diabetes Screenin g [facility] Start: 04-26-2024 Depression Assessment [facility] Immunizations Immunization Date Immunization Notes Care Provider Marisa guerin 05-21-2023 tetanus toxoid, redu fredrick diphtheria toxoid, and acellular pertussis vaccine, adsorbed James Skinner MD Work Phone: [facility] 02-19-2023 hepatitis A vaccine, adult dosage James Skinner MD Work Phone: [facility] 01-12-2023 influenza, injectabl e, quadrivalent, preservative free James Skinner MD Work Phone: [facility] 04-17-2021 Moderna SARS-CoV-2 Vaccination [facility] 03-15-2021 Moderna SARS-CoV-2 Vaccination [facility] Payers Date Payer Category Payer Self-pay 2021 Unknown [id number] 2020 Unknown [id number] 2016 Unknown BCBS BCBS - [place] P PO xxxxxxxxxxxx 2016-Present [address] [place] [address] xxxxxxxxxxxx [id number] 2016 Unknown BC[place] - [place] P PO [id number] 2016-Present [address] [place] [address] [id number] 1973 Unknown [id number] 1973 Unknown [id number] 1973 Unknown [id number] Unknown [id number] Social History Date Type Detail Facility Start: 11-01-2019 End: 12-12-2022 Tobacco smoking status RUST Never smoker [facility] Start: 11-01-2019 End: 05-21-2023 Alcohol intake Current drinker of alcohol (finding) [place] Start: 12-16-2018 History SDOH Physica l Activity DPW 0 [place] Start: 12-16-2018 End: 10-12-2020 History SDOH Financial 4 [place] Start: 12-16-2018 End: 03-18-2022 History SDOH Food Worry 1 [place], [place] Start: 12-16-2018 End: 03-18-2022 History SDOH Transport Med 2 [place] Start: 12-16-2018 Alcohol Comment occasionally [place] Start: 1975 Sex Assigned At Not on file [facility] [place] Exposure to SARS-CoV -2 (event) [facility] Start: 11-22-2019 End: 12-12-2022 Tobacco use and exposure [facility] Start: 06-20-2022 End: 10-29-2022 Exposure to SARS-CoV-2 (event) [facility] sure [facility] Start: 04-08-2021 End: 01-02-2023 [facility] Work Phone: Start: 10-12-2020 History SDOH Physica l Activity DPW 3 [facility] Work Phone: Start: 1975 Sex Assigned At Male S [facility] Start: 03-18-2022 History SDOH Financial 5 [facility] [employer] Start: 10-16-2022 End: 01-02-2023 Tobacco use panel [facility] [employer] How hard is it for y ou to pay for the very basics like food, housing, medical care, and heating Not hard at all [facility] [employer] (I/We) worried doug er (my/our) food would run out before (I/we) got money to buy more. Never true [facility] [employer] Start: 02-13-2022 Gender identity Identifies as male gender (finding) [facility] Start: 12-16-2022 Alcohol Comment occ [facility] Tobacco smoking status No Smokin g Status Entered [facility] Has the Purch, or Email Data Source threatened to shut off services in your home in past 12Mo No [facility] Are you now , , , , never or living with a partner? [facility] How often do you hav e 6 or more drinks on 1 occasion? Never [facility] How hard is it for y ou to pay for the very basics like food, housing, medical care, and heating Not very hard [facility] Do you feel stress - tense, restless, nervous, or anxious, or unable to sleep at night because your mind is troubled all the time - these days [OSQ] Not at all [facility] Medical Equipment Procedure Code Equipment Code Equipment Origin al Text Equipment Identifier Dates Mesh Surgical Sy mbotex Polyester Collagen 3d Round L3.3 Mm X W2.3 Mm Od9 Cm 2 Side Composite Monofilament Bioabsorbable Film Sterile Disposable Green - [id number] Start: 03-05-2022 Clinical Notes 04-08-2021 to 06-15-2023 Eddy Moraes MD - 06/15/2023 8:47 AM ESTTelephone Encounter - Russel Wheat LPN - 06/11/2023 2:32 PM ESTTelephone Encounter - Baylee Teixeira MA - 06/09/2023 4:24 PM ESTInstructions Note Date & Type Note Facility 06-15-2023 Note HNO ID: [id number] Author: EDDY MORAES MD Service: ? Author Type: Physician Type: Progress Notes Filed: 06/15/2023 09:46 Note Text: UNIVERSAL PROTOCOL / SAFETY CHECKLIST Procedure to be Performed: EMG Sign In: A Moment of CARE was completed. Personnel directly involved with the procedure wore the appropriate PPE (Personal Protective Equipment). Patient/Surrogate Stated/Verified: PATIENT VERIFIED(optional for EMERGENT procedures): Patient name, Date of , Relevant allergies, and The intended procedure Time Out Communication: Intended patient and procedure match the source documents. Correct side/site marked and visible. Sign Out: SIGN OUT (optional for EMERGENT procedures): Post-procedure follow-up management communicated and Plan of Care Visit completed when applicable. Sofia Moraes MD [facility] 06-15-2023 History of Present illness Narrative UNIVERSAL PROTOCOL / SAFETY CHECKLIST Procedure to be Performed: EMG Sign In: A Moment of CARE was completed. Personnel directly involved with the procedure wore the appropriate PPE (Personal Protective Equipment). Patient/Surrogate Stated/Verified: PATIENT VERIFIED(optional for EMERGENT procedures): Patient name, Date of , Relevant allergies, and The intended procedure Time Out Communication: Intended patient and procedure match the source documents. Correct side/site marked and visible. Sign Out: SIGN OUT (optional for EMERGENT procedures): Post-procedure follow-up management communicated and Plan of Care Visit completed when applicable. Sofia Moraes MD documented in this encounter [facility] 06-11-2023 Miscellaneous Notes Please see pt's message. Russel Wheat LPN Ok for this to wait until he comes back into town. Baylee Teixeira MA documented in this encounter [facility] 05-21-2023 Note HNO ID: [id number] Author: CORONA WILSON RT(R) Service: Radiology Author Type: Technologist Type: Progress [...] RT Ronnell(R) May 21, 2023 8:47 AM [facility] 05-21-2023 Note HNO ID: [id number] Author: RENÉE GIBSON PA-C Service: ? Author Type: Physician Electrician Control Equipment Type: Progress Notes Filed: 05/21/2023 09:23 Note [...] Abdominal hernia HIV (human immunodeficiency virus infection) ([facility]) 01/11/2023 Seeing ID: Dr. Tiffany Rey Inguinal hernia Marfan syndrome Previous Surgical History PAST SURGICAL HISTORY Procedure Laterality Date HERNIA REPAIR HX INGUINAL HERNIA REPAIR HX Family History FAMILY HISTORY Adopted: Yes Family history unknown: Yes Patient Allergies ALLERGIES No Known Allergies Current Medications Current Outpatient Medications on File Prior to Visit Medication Sig MULTI-VITAMIN ORAL Take by mouth once daily. CRANBERRY ORAL Take by mouth once daily. pbcaxnxkefa-gzsbhaeseohhl-csoabda ir alafenamide (BIKTARVY) 50-200-25 mg per tablet [...] done Colorectal Cancer Screening Never done Covid-19 Vaccine() due on 03/27/2023 Depression Assessment due on [...] Chol/HDL Ratio, Nonfasti (more content not included)... [facility] 03-20-2023 Evaluation + Plan note Diagnostic Tests [facility]ending[facility] Lab Send out (Blood Specimens) 03/20/23 [facility] 01-09-2023 Note HNO ID: [id number] Author: Russel Wheat LPN Service: ? Author Type: ? Type: Progress Notes Filed: 01/11/2023 3:40 PM Note Text: Scan on 01/08/2023 4:28 PM by ProviderWanda PA-C: Miscellaneous Clinical Documents [facility] 01-09-2023 History of Present illness Narrative Scan on 01/08/2023 4:28 PM by ProviderWanda PA-C: Miscellaneous Clinical Documents documented in this encounter [facility] 01-06-2023 Miscellaneous Notes Faxed results as instructed by pcp below. Please fax Hepatitis panel and HIV 1/[address] Allen's office at [phone] attn [place]. Spoke with patient and reviewed [...] of state, and will be back in [place] tomorrow) After that he will be at work and cannot discuss this in front of his coworker. States he will be at home all day tomorrow but hoping pcp can call him before 10 am this morning. [phone]. Reports his ID provider is Dr. Allen. Reports Dr. Allen has an office in [place], but patient had to see him in the [place] office. Reports he has an appt with him this Thurs at 2 pm. Please find out from patient who the infectious disease provider he is seeing. documented in this encounter [facility] 01-05-2023 Miscellaneous Notes Patient notified and voiced understanding. Baylee Teixeira MA Let patient know Hep A, B and C were all negative. documented in this encounter [facility] 01-02-2023 Note HNO ID: [id number] Author: James Skinner MD Service: ? Author [...] three times a day. James Skinner MD [facility] 01-02-2023 History of Present illness Narrative Chief [...] James Skinner MD documented in this encounter [facility] 12-16-2022 Note HNO ID: [id number] Author: Renée Gibson PA-C Service: ? Author Type: Physician Electrician Control Equipment Type: Progress Notes Filed: 12/16/2022 10:34 AM [...] is due next October Renée Gibson PA-C [facility] 12-16-2022 History of Present illness Narrative Chief [...] Renée Gibson PA-C documented in this encounter [facility] 12-12-2022 Note HNO ID: [id number] Author: Costa Alvarado APRN.INSTRUMENT TESTER Service: ? Author Type: Nurse Practitioner Type: [...] %. Physical Exam Exam conducted with a pocket flap creasing machine operator present. Constitutional: General: He is not in [...] MG-TRIMETHOPRIM 160 MG TABLET Costa Alvarado APRN.CNP [facility] 10-22-2022 Evaluation + Plan note Associated Problem(s): Rash Unsure etiology. No improvement with prednisone. Consulted with Dr. Asencio who believes this is probably tinea versicolor. Will start fluconazole weekly x2 weeks and ketoconazole cream twice daily. If not improving in the next 6 to 8 weeks or worsens, consider referral to dermatology [facility] 10-22-2022 Miscellaneous Notes Associated Problem(s): Rash Unsure etiology. No improvement with prednisone. Consulted with Dr. Asencio who believes this is probably tinea versicolor. Will start fluconazole weekly x2 weeks and ketoconazole cream twice daily. If not improving in the next 6 to 8 weeks or worsens, consider referral to dermatology documented in this encounter [facility] 10-22-2022 History of Present illness [...] symptoms worsen or fail to improve. SUBJECTIVE/OBJECTIVE: [facility] - Ginny Carson (: 1975) is a [...] note. TU Rondon CNP 10/22/2022 7:11 AM Executive Communications Manager for Intimate and Non Intimate Exam Executive Communications Manager was declined Executive Communications Manager: keven documented in this encounter [facility] 10-17-2022 Evaluation + Plan note Associated Problem(s): Rash Unsure etiology. Vital signs stable. Rash is not that bothersome. Will start oral steroids, H2 brianne. Check CBC CMP. Follow-up as directed pending testing results or sooner for any worsening symptoms [facility] 10-17-2022 Miscellaneous Notes Associated Problem(s): Rash Unsure etiology. Vital signs stable. Rash is not that bothersome. Will start oral steroids, H2 brianne. Check CBC CMP. Follow-up as directed pending testing results or sooner for any worsening symptoms documented in this encounter [facility] 10-16-2022 History of Present illness Narrative Executive Communications Manager for Intimate and Non Intimate Exam Executive Communications Manager was declined Executive Communications Manager: keven Images from the original note were not [...] when it had started ) Was in [place] a few weeks ago and noticed about [...] cream Apply 0.01 application topically as needed. 3/25/22 Yes Historical Provider, predniSONE (Deltasone) 20 MG [...] 10/16/2022 3:01 PM documented in this encounter [facility] 10-16-2022 Instructions TU Rondon CNP - 10/16/2022 3:00 PM EDT Famotidine (pepcid) 20 mg twice daily x 7 days. documented in this encounter [facility] [employer] 09-06-2022 History of Present illness Narrative Images from the original note were not included. 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 [facility] [place] [facility] AT [facility] [address] [place] [address] Dept: [phone] Dept PHYSICAL THERAPY TREATMENT Patient Name: Ginny [...] Janet Bess PT documented in this encounter [facility] [employer] 08-18-2022 History of Present illness Narrative Images from the original note were not included. [facility] [place] [facility] AT [place] [address] [place] [address] Dept: [phone] Dept PHYSICAL THERAPY TREATMENT Patient Name: Ginny [...] Goal note from Evaluation 08/05/2022 by Janet Bess, PT 52/80 (08/05/22) Plan Plan for next session: assess response to heel insert, can add another layer to get to 2 cm, add forward cable column walks to further progress dynamic core and hip stability Time Entry Total Treatment Time Start Time: 932 Stop Time: 999 Time Calculation (min): 27 min Janet Bess PT documented in this encounter [facility] 08-14-2022 History of Present illness Narrative Images from the original note were not included. 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 [facility] AT [address] [place] [address] Dept: [phone] Dept PHYSICAL THERAPY RE-EVALUATION Patient Name: Ginny [...] Procedures Time Entry Therapeutic Activity Time Entry: 25 Janet Bess PT documented in this encounter [facility] [employer] 07-24-2022 History of Present illness Narrative Images from the original note were not included. [facility] [place] [facility] AT [place] [address] [place] [address] Dept: [phone] Dept PHYSICAL THERAPY TREATMENT Patient Name: Ginny [...] Time Entry Total Treatment Time Start Time: 1535 Stop Time: 1559 Time Calculation (min): 24 min PT Therapeutic Procedures Time Entry Therapeutic Exercise Time Entry: 24 Jakub Schaeffer PTA documented in this encounter [facility] 07-21-2022 History of Present illness Narrative Images from the original note were not included. [facility] AT [place] [address] [place] [address] Dept: [phone] Dept PHYSICAL THERAPY TREATMENT Patient Name: Ginny [...] Jakub Schaeffer PTA documented in this encounter [facility] 06-30-2022 Note General Surgery Hist [...] kg/m? Physical Exam Exam conducted with a pocket flap creasing machine operator present. Constitutional: Appearance: Normal appearance. HENT: Head: [...] Comments: External: External (more content not included)... [facility] 05-14-[address] referr al, thank you! [facility] 05-05-2022 Note Name: Ginny Carson Date [...] 23 EMB-19 Location: Testing was conducted at [facility] as an outpatient. [facility] 04-24-2022 Note General Surgery Hist ory and Physical Brandon Barrera MD Patient ID: Ginny Carson [id number] 46 y.o. 1975 CHIEF COMPLAINT: Chief Complaint [...] months ago incl (more content not included)... [facility] 04-18-2022 Note Addendum created 1031 by TU Dang CRNA Attestation recorded in Intraprocedure, Intraprocedure Attestations filed [facility] 04-11-2022 Note Referral to surgery for further evaluation and to determine the best way of imaging to see what this is or if it should just be removed. [facility] 03-05-2022 Note Patient: Ginny adrian Procedure Summary Date: 03/05/22 Room / Location: [address] Operating Room Anesthesia Start: 806 Anesthesia [...] once all PACU criteria has been met. [facility] 03-05-2022 Note Patient: Ginny adrian Procedure Summary Date: 03/05/22 Room / Location: [address] Operating Room Anesthesia Start: 806 Anesthesia [...] opportunity for questions and acknowledgement of understanding. [facility] 03-05-2022 Note Airway Date/Time: 03/05/2022 8:12 AM Urgency: scheduled Airway not difficult General Information and Staff Patient location during procedure: Procedural Resident/COMMUNITY SERVICE AIDE: TU Dang CRNA Performed: COMMUNITY SERVICE AIDE Indications and Patient Condition Indications for airway [...] lips Number of attempts at approach: 1 [facility] 03-05-2022 Note Peripheral Block Patient location during procedure: Procedural Start time: 03/05/2022 8:10 AM End time: 03/05/2022 8:10 AM Reason for block: at surgeon's request and post-op pain management Staffing Performed: COMMUNITY SERVICE AIDE Resident/COMMUNITY SERVICE AIDE: Thom Britton APRN - COMMUNITY SERVICE AIDE Preanesthetic Checklist Completed: patient identified, IV checked, site marked, risks and benefits discussed, surgical consent, monitors and equipment checked, pre-op evaluation and timeout performed Region: Truncal Primary: TAP and Upper rectus w/wo lower Secondary: Transversalis Fascia Plane (TAP) and Upper rectus Peripheral Block Patient position: supine Prep: ChloraPrep Patient monitoring: heart rate, clinical research monitor, continuous pulse ox and continuous capnometry [...] plane. and Local anesthetic injected without difficulty [facility] 03-05-2022 Note General Surgery Hist ory and Physical Brandon Barrera MD Patient ID: Ginny Carson [id number] 46 y.o. 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 Asencio HPI: [...] Patient not taking: Reported on 07/09/2021 01/30/21 TU Bill NP Allergies: Patient has no known allergies. Social [...] Friends and Family: Not on file Attends [employer] Services: Not on file Active Member of [...] for seizures an (more content not included)... [facility] 03-05-2022 Note Patient: Ginny Rodriguez Katharina adrian Procedure Information Date/Time: 03/05/22 0800 Procedure: ROBOTIC (XI) LAPAROSCOPY REPAIR UMBILICAL HERNIA WITH MESH (Abdomen) Location: [address] Operating Room Surgeons: Brandon Barrera MD Relevant [...] Aortic valve: There is mild, 1+ regurgitation. [facility] 03-03-2022 Note Comprehensive PreSur gical History [...] area ONLY NEEDED lidocaine-EPINEPHrine (Xylocaine W/EPI) 1 %-1:692518 injection Inject 4 mL into the skin. [...] SCORE = 3 (more content not included)... [facility] [employer] [facility] 04-08-2021 History of Present illness Narrative Pt [...] instructions were given) documented in this encounter [employer] Work Phone: 04-08-2021 Hospital Discharge instructions Carrillo Fuchs [...] the office. Contact the office the following business day after surgery to inform us of [...] and/or NSAIDS, please take your opioid prescription ([place]/vicodin/percocet have tylenol in them) as needed for [...] oxycodone (5mg) tablets if needed PLEASE CALL [phone] if you have any questions documented in this encounter [facility] Work Phone: documented in this encounter [facility] Work Phone: Evaluation note* Diagnosis Lumbar radiculopathy- Primary Thoracic or lumbosacral neuritis or radiculitis, unspecified documented in this encounter [facility]* Diagnosis Lumbar radiculopathy- Primary Thoracic or lumbosacral neuritis or radiculitis, unspecified [facility] Diagnosis Lumbar radiculopathy- Primary Thoracic or lumbosacral neuritis or radiculitis, unspecified [facility]* Diagnosis Lumbar radiculopathy- Primary Thoracic or lumbosacral neuritis or radiculitis, unspecified [facility] Diagnosis Lumbar radiculopathy- Primary Thoracic or lumbosacral neuritis or radiculitis, unspecified documented in this encounter [facility] note* Diagnosis Radiculopathy, lumbar region- Primary Thoracic or lumbosacral neuritis or radiculitis, unspecified Radiculopathy, lumbar region Thoracic or lumbosacral neuritis or radiculitis, unspecified documented in this encounter [facility] note* Diagnosis Segmental and somatic dysfunction of lower extremity Pain in right hip documented in this encounter [facility] note* Diagnosis Lumbar radiculopathy- Primary Thoracic or lumbosacral neuritis or radiculitis, unspecified documented in this encounter [facility] note* Diagnosis Rash- Primary Rash and other nonspecific skin eruption documented in this encounter [facility] note* Diagnosis Tinea versicolor- Primary Pityriasis versicolor Rash Rash and other nonspecific skin eruption documented in this encounter [facility] note* Diagnosis Segmental and somatic dysfunction of lower extremity- Primary Pain in right hip documented in this encounter [facility] note* Diagnosis Marfan's disease- Primary Marfan's syndrome GERD without esophagitis Esophageal reflux Hyperlipidemia, mixed Mixed hyperlipidemia Screening for diabetes mellitus Encounter for lipid screening for cardiovascular disease Screening for lipoid disorders Chronic mixed headache syndrome Other headache syndromes Medication management Encounter for long-term (current) use of other medications documented in this encounter [facility] note* Diagnosis STD exposure- Primary Rash of genital area documented in this encounter [facility] note* Diagnosis HIV infection, unspecified symptom status (HCC) documented in this encounter [facility] note* Diagnosis Pain of right lower extremity Leg numbness Disturbance of skin sensation documented in this encounter [facility] course Narrative No data available for this section [facility] Hospital Discharge instructions No data available for this section [facility] Instructions* Attachments The following attachments cannot be sent through Care Everywhere. * Tinea Versicolor (Croatian) [facility] No data available for this section [facility] Reason for visit Narrative* Outpatient Procedure (Routine) - Closed Specialty Diagnoses / Procedures Referred By Contac t Referred To Contact [facility] Diagnoses Pain of right lower extremity Leg numbness Procedures EMG(NEURO/NI) NERVE CONDUCTION STUDIES 9-10 STUDIES Renée Gibson PA-C [address] [place] [address] [facility] [address] [place] [address] Referral ID Status Reason Start Date Expiration Date V isits Requested Visits Authorized [id number] Closed Auto-Generate d Referral 05/21/2023 05/21/2024 1 1 [facility] Advance Directives No Advanced Directives Records FoundDocuments on File Type Date Recorded Patient Blade Boner Expl anation Advance Directives and Living Will Advance Directives and Living Will 12/16/2018 10:34 AM 12/16/2018_Living Wi ll Power of Instrument Engineer Power of Instrument Engineer 12/16/2018 10:36 AM 11/26_POA Documents on File Type Date Recorded Patient Blade Boner Expl anation ACP-Advance Directive ACP-Advance Directive 12/16/2018 10:34 AM 12/16/2018_Living Will ACP-Power of Instrument Engineer ACP-Power of Instrument Engineer 12/16/2018 10:36 AM 12/16/2018_POA Documents on File Type Date Recorded Patient Blade Boner Expl anation ACP-Advance Directive ACP-Power of Instrument Engineer ACP-Advance Directive 12/16/2018 10:34 AM 12/16/2018_Living Will ACP-Power of Instrument Engineer 12/16/2018 10:36 AM 12/16/2018_POA Latest Code Status [...] W Doppler W Color Cosme Asencio MD [address] [place] [address], [place] [address] Assessments Diagnosis Marfan's syndrome Bicuspid aortic valve [...] DATE CREATED AUTHOR AUTHOR'S ORGANIZ ATION 04/11/2021 [facility] DATE CREATED AUTHOR AUTHOR'S ORGANIZ ATION 12/05/2022 [facility] DATE CREATED AUTHOR AUTHOR'S ORGANIZ ATION 05/08/2023 [facility] ([place]) DATE CREATED AUTHOR AUTHOR'S ORGANIZ ATION 06/15/2023 [facility] Ordered Prescriptions (unrec ognized section and content) [...] 1520 (New Bag - Prov ider: Rebekah Zhong RN)1619 (Stopped - Provider: Rebekah Zhong RN) 0.9 [...] Care Teams (unrecognized sec tion and content) Product Safety Technician Relationship Specialty Start Date End Date Cosme Asencio MD [address] [place], [place] [address] [address] PCP - General 12/16/18 Product Safety Technician Relationship Specialty Start Date End Date Cosme Asencio MD [address] [place] [address] PCP - General 12/16/18 Product Safety Technician Relationship Specialty Start Date End Date Cosme Asencio MD [address] [place] [address] PCP - General 12/16/18 Product Safety Technician Relationship Specialty Start Date End Date Cosme Asencio MD [address] [place] [address] PCP - General 12/16/18 Product Safety Technician Relationship Specialty Start Date End Date Cosme Asencio MD [address] [place] [address] PCP - General 12/16/18 Product Safety Technician Relationship Specialty Start Date End Date Cosme Asencio MD [address] [place] [address] PCP - General 12/16/18 Product Safety Technician Relationship Specialty Start Date End Date Cosme Asencio MD [address] [place], [place] [address] [address] PCP - General 12/16/18 Product Safety Technician Relationship Specialty Start Date End Date Cosme Asencio MD [address] [place] [address] PCP - General 12/16/18 Product Safety Technician Relationship Specialty Start Date End Date Cosme Asencio MD [address] [place] [address] PCP - General 12/16/18 Product Safety Technician Relationship Specialty Start Date End Date Cosme Asencio MD [address] [place] [address] PCP - General 12/16/18 Product Safety Technician Relationship Specialty Start Date End Date Cosme Asencio MD [address] [place] [address] PCP - General 12/16/18 Product Safety Technician Relationship Specialty Start Date End Date James Skinner MD [address] [place] [address] PCP - General Family Medicine 12/16/22 Product Safety Technician Relationship Specialty Start Date End Date James Skinner MD [facility] [place] [address] PCP - General Family Medicine 12/16/22 Product Safety Technician Relationship Specialty Start Date End Date James Skinner MD [address] [place] [address] PCP - General Family Medicine 12/16/22 Product Safety Technician Relationship Specialty Start Date End Date James Skinner MD [address] [place] [address] PCP - General Family Medicine 12/16/22 Product Safety Technician Relationship Specialty Start Date End Date James Skinner MD [address] [place] [address] PCP - General Family Medicine 12/16/22 Reason for Visit (unrecogniz ed section and content) Specialty Diagnoses / Procedures Referred By Contac t Referred To Contact Physical Therapy Diagnoses Numbness of right foot Lumbar spondylosis Chronic lumbar radiculopathy Sural neuropathy, right Procedures [place] OFFICE/OUTPATIENT [facility] 60-74 MINUTES Meera Blair MD [address] [place] [address] [facility] [address] [place] [address] Referral ID Status Reason Start Date Expiration Date Visits Requested Visits Authorized [id number] Authorized Specialty Services Required 06/12/2022 06/12/2023 99 99 Reason Comments PT Treatment Specialty Diagnoses / Procedures Referred By Contac t Referred To Contact Physical Therapy Diagnoses Lumbar radiculopathy Procedures [place] OFFICE/OUTPATIENT [facility] 60-74 MINUTES Peter Briseno MD [address] [address] [facility] [address] [place] [address] [place] [address] Referral ID Status Reason Start Date Expiration Date Visits Requested Visits Authorized [id number] Authorized Eval and Treat 05/27/2022 11/23/2022 60 60 Specialty Diagnoses / Procedures Referred By Contac t Referred To Contact Physical Therapy Diagnoses Lumbar radiculopathy Procedures [place] OFFICE/OUTPATIENT [facility] 60-74 MINUTES Peter Briseno MD [address] [address] [facility] [address] [place] [address] Reason Comments Rash Seen about 10 days [...] or prosecute any alcohol or drug abuse patient.[facility] the event this information is protected by the Federal Confidentiality of Alcohol and Drug Abuse Patient Records regulations: The Federal rules restrict any use of the information to criminally investigate or prosecute any alcohol or drug abuse patient.[facility] the event this information is protected by the Federal Confidentiality of Alcohol and Drug Abuse Patient Records regulations: The Federal rules restrict any use of the information to criminally investigate or prosecute any alcohol or drug abuse patient.[facility] Hospital[facility] the event this information is protected by the Federal Confidentiality of Alcohol and Drug Abuse Patient Records regulations: The Federal rules restrict any use of the information to criminally investigate or prosecute any alcohol or drug abuse patient.[facility] Hospital[facility] the event this information is protected by the Federal Confidentiality of Alcohol and Drug Abuse Patient Records regulations: The Federal rules restrict any use of the information to criminally investigate or prosecute any alcohol or drug abuse patient.[facility] Hospital[facility] the event this information is protected by the Federal Confidentiality of Alcohol and Drug Abuse Patient Records regulations: The Federal rules restrict any use of the information to criminally investigate or prosecute any alcohol or drug abuse patient.[facility] Hospital[facility] the event this information is protected by the Federal Confidentiality of Alcohol and Drug Abuse Patient Records regulations: The Federal rules restrict any use of the information to criminally investigate or prosecute any alcohol or drug abuse patient.[facility] FOR RECORDS PERTAINING TO PATIENTS WHO ARE [...] BE BASED ON THE PRIMARY CLINICAL RECORDS. [facility] [employer] [facility]. provides no warranty or guarantee of the accuracy or completeness of information in this document.
--- OUTSIDE RECORDS SUMMARY | 2023-06-16 21:27 | XMS RPT_ITS | CCD ---
Author Name Unknown Address [address] [place] [address] Organization [facility] Care Team Providers Care Waterworks Operator Name Role Phone Cosme Asencio Primary Care [...] Provider JAMES SKINNER MD Primary Care Physician JAMES SKINNER MD Primary Care Unavailable DISHA SENA DO Attending Unavailable JAMES SKINNER MD Primary Care Unavailable DISHA SENA DO Attending Unavailable JAMES SKINNER MD Primary Care Unavailable DISHA SENA DO Attending Unavailable JAMES SKINNER MD Primary Care Unavailable RAQUEL MAE-MASONRY INSTALLER, ARNALDO Attending U lesaable JAMES SKINNER Attending [...] sources) Other Propensity to adverse reactions 03-27-2018 [facility]- [place], [place] Medications Current Medications Medication [...] Local Anesthetic Start: 03-30-2018 lidocaine-EPINEPHri ne 1 percent-1:[id number] injection 4 mL 2 ml fentaNYL 0.05 [...] (8 sources) Patient encounter status; Translations: [Other custodial (current) drug therapy] Onset: 12-16-2022 12-16-2022 Episodic Other aftercare (1 source) Other custodial (current) drug therapy; Translations: [Medication management] Onset: [...] 101.15 kg James Skinner MD Work Phone: [facility] 01-02-2023 09:25-0400 Diastolic blood pressure 80 mm[Hg] James Skinner MD Work Phone: [facility] 01-02-2023 09:25-0400 Heart rate 74 /min James Skinner MD Work Phone: [facility] 01-02-2023 09:25-0400 Respiratory rate 12 /min James Skinner MD Work Phone: [facility] 01-02-2023 09:25-0400 Systolic blood pressure 118 mm[Hg] James Skinner MD Work Phone: [facility] 12-16-2022 07:10-0400 Body height 192 cm Renée Gibson PA-C Work Phone: [facility] 12-16-2022 07:10-0400 Body temperature 97.59 [degF] Renée Gibson PA-C Work Phone: [facility] 12-16-2022 07:10-0400 Body weight 103.87 kg Renée Gibson PA-C Work Phone: [facility] 12-16-2022 07:10-0400 Diastolic blood pressure 62 mm[Hg] Renée Gibson PA-C Work Phone: [facility] 12-16-2022 07:10-0400 Heart rate 78 /min Renée Gibson PA-C Work Phone: [facility] 12-16-2022 07:10-0400 Respiratory rate 18 /min Renée Gibson PA-C Work Phone: [facility] 12-16-2022 07:10-0400 Systolic blood pressure 100 mm[Hg] Renée Gibson PA-C Work Phone: [facility] 10-22-2022 09:05-0400 Body mass index (BMI) [Ratio] 27.68 kg/m2 Rachel Bridenthal VICE PRESIDENT PHARMACY - MASONRY INSTALLER Work Phone: [facility] [employer] 10-22-2022 09:05-0400 Body temperature 98.2 [degF] Rachel Bridenthal VICE PRESIDENT PHARMACY - MASONRY INSTALLER Work Phone: [facility] 10-22-2022 09:05-0400 Body weight 105.87 kg Rachel Bridenthal VICE PRESIDENT PHARMACY - MASONRY INSTALLER Work Phone: [facility] 10-22-2022 09:05-0400 Diastolic blood pressure 72 mm[Hg] Rachel Bridenthal VICE PRESIDENT PHARMACY - MASONRY INSTALLER Work Phone: [facility] 10-22-2022 09:05-0400 Heart rate 74 /min Rachel Bridenthal VICE PRESIDENT PHARMACY - MASONRY INSTALLER Work Phone: [facility] 10-22-2022 09:05-0400 Respiratory rate 16 /min Rachel Bridenthal VICE PRESIDENT PHARMACY - MASONRY INSTALLER Work Phone: [facility] 10-22-2022 09:05-0400 SaO2% (BldA) [Mass fraction] 99 % Rachel Bridenthal VICE PRESIDENT PHARMACY - MASONRY INSTALLER Work Phone: [facility] 10-22-2022 09:05-0400 Systolic blood pressure 113 mm[Hg] Rachel Bridenthal VICE PRESIDENT PHARMACY - MASONRY INSTALLER Work Phone: [facility] 10-16-2022 14:55-0400 Body mass index (BMI) [Ratio] 28.08 kg/m2 Rachel Bridenthal VICE PRESIDENT PHARMACY - MASONRY INSTALLER Work Phone: [facility] 10-16-2022 14:55-0400 Body temperature 98.2 [degF] Rachel Bridenthal VICE PRESIDENT PHARMACY - MASONRY INSTALLER Work Phone: [facility] 10-16-2022 14:55-0400 Body weight 107.41 kg Rachel Bridenthal VICE PRESIDENT PHARMACY - MASONRY INSTALLER Work Phone: [facility] 10-16-2022 14:55-0400 Diastolic blood pressure 74 mm[Hg] Rachel Bridenthal VICE PRESIDENT PHARMACY - MASONRY INSTALLER Work Phone: [facility] 10-16-2022 14:55-0400 Heart rate 75 /min Rachel Bridenthal VICE PRESIDENT PHARMACY - MASONRY INSTALLER Work Phone: [facility] 10-16-2022 14:55-0400 Respiratory rate 20 /min Rachel Bridenthal VICE PRESIDENT PHARMACY - MASONRY INSTALLER Work Phone: [facility] 10-16-2022 14:55-0400 Systolic blood pressure 111 mm[Hg] Rachel Bridenthal VICE PRESIDENT PHARMACY - MASONRY INSTALLER Work Phone: [facility] 04-08-2021 16:30-0500 Diastolic blood pressure 70 mm[Hg] Yayo Cid MD Work Phone: [facility] 04-08-2021 16:30-0500 Heart rate 85 /min Yayo Cid MD Work Phone: [facility] 04-08-2021 16:30-0500 Respiratory rate 16 /min Yayo Cid MD Work Phone: [facility] 04-08-2021 16:30-0500 SaO2% (BldA) [Mass fraction] 99 % Yayo Cid MD Work Phone: [facility] 04-08-2021 16:30-0500 Systolic blood pressure 130 mm[Hg] Yayo Cid MD Work Phone: [facility] 04-08-2021 16:00-0500 Body temperature 97 [degF] Yayo Cid MD Work Phone: [facility] 04-08-2021 11:53-0500 Body height 195.6 cm Yayo Cid MD Work Phone: [facility] 04-08-2021 11:53-0500 Body mass index (BMI) [Ratio] 28.93 kg/m2 Yayo Cid MD Work Phone: [facility] 04-08-2021 11:53-0500 Body weight 110.68 kg Yayo Cid MD Work Phone: [facility] Encounters Encounter Date Encounter Type Care Provider Facility Start: 06-15-2023 End: 06-15-2023 ambulatory JAMES SKINNER Facility:[facility] Start: 06-15-2023 End: 06-15-2023 ambulatory Emg 850) Neurology Start: 06-15-2023 End: 06-15-2023 Patient encounter procedure Emg 1 Neur [facility] (Max Weight: 850) [facility] Start: 06-09-2023 ambulatory James alatorre MD Work [...] with white cell differential, automated Rachel Serge VICE PRESIDENT PHARMACY - MASONRY INSTALLER Work Phone: Start: 10-16-2022 Comprehensive metabo lic panel Rachel Serge VICE PRESIDENT PHARMACY - MASONRY INSTALLER Work Phone: Start: 06-11-2022 Adult depression scr [...] P,Tdap,Td Vaccine (2 - Td or Tdap) [facility] Start: 04-08-2031 Screening for malign ant neoplasm of colon [facility] Start: 05-12-2028 Lipid panel Lipid Screening [facility] Start: 10-30-2027 Lipid 1996 panel - S khurram or Plasma Lipid Screening [facility] Start: 10-30-2027 Lipid panel Lipid Panel [facility] Start: 10-30-2027 LIPID SCREEN LIPID SCREEN [facility] Start: 12-13-2026 Lipid panel Lipid Panel [facility] Start: 05-12-2026 Diabetes Screening Diabetes Screenin g [facility] Start: 01-09-2026 Diabetes Screening Diabetes Screenin g [facility] Start: 10-29-2025 Diabetes mellitus screening Diabetes Screening [facility] Start: 10-29-2025 DIABETES SCREEN DIABETES SCREEN [facility] Start: 10-29-2025 Diabetes Screening Diabetes Screenin g [facility] Start: 04-26-2024 Depression [facility] Immunizations Immunization Date Immunization Notes Care Provider Marisa guerin 05-21-2023 tetanus toxoid, redu fredrick diphtheria toxoid, and acellular pertussis vaccine, adsorbed James Skinner MD Work Phone: [facility] 02-19-2023 hepatitis A vaccine, adult dosage James Skinner MD Work Phone: [facility] 01-12-2023 influenza, injectabl e, quadrivalent, preservative free James Skinner MD Work Phone: [facility] 04-17-2021 Moderna SARS-CoV-2 Vaccination [facility] 03-15-2021 Moderna SARS-CoV-2 Vaccination [facility] Payers Date Payer Category Payer Self-pay 2021 Unknown [id number] 2020 Unknown [id number] 2016 Unknown BCBS BC[place] P PO xxxxxxxxxxxx 2016-Present [address] [place] [address] xxxxxxxxxxxx [id number] 2016 Unknown [place] P PO [id number] 2016-Present [address] [place] [address] [id number] 1975 Unknown [id number] 1975 Unknown [id number] 1975 Unknown [id number] Unknown [id number] Social History Date Type Detail Facility Start: 11-01-2019 End: 12-12-2022 Tobacco smoking status [facility] Never smoker [facility] Start: 11-01-2019 End: 05-21-2023 Alcohol intake Current drinker of alcohol (finding) [place], [place] Start: 12-16-2018 History SDOH Physica l Activity DPW 0 [place] Start: 12-16-2018 End: 10-12-2020 History SDOH Financial 4 [place] Start: 12-16-2018 End: 03-18-2022 History SDOH Food Worry 1 [place], [place] Start: 12-16-2018 End: 03-18-2022 History SDOH Transport Med 2 [place] Start: 12-16-2018 Alcohol Comment occasionally [place], [place] Start: 1975 Sex Assigned At Not on file [facility] [place] Exposure to SARS-CoV -2 (event) [facility] Start: 11-22-2019 End: 12-12-2022 Tobacco use and exposure [facility] Start: 06-20-2022 End: 10-29-2022 Exposure to SARS-CoV-2 (event) [facility] Start: 04-08-2021 End: 01-02-2023 [facility] Work [facility]: Start: 10-12-2020 History SDOH Physica l Activity DPW 3 [facility] Work Phone: Start: 1975 Sex Assigned At Male S [facility] Start: 03-18-2022 History SDOH Financial [address] [facility] [employer] Start: 10-16-2022 End: 01-02-[address] [facility] [employer] How hard is it for y ou to pay for the very basics like food, housing, medical care, and heating Not hard at all [facility] (I/We) worried doug er (my/our) food would run out before (I/we) got money to buy more. Never true [facility] [employer] Start: 02-13-2022 Gender identity Identifies as male gender (finding) [facility] Start: 12-16-2022 Alcohol Comment occ [facility] Tobacco smoking status No Smokin g Status Entered [facility] Has the [employer], or [employer] threatened to shut off services in your home in past 12Mo No [facility] Are you now , , , , never or living with a partner? [facility] How often do you hav e 6 or more drinks on 1 occasion? Never [facility] How hard is it for y ou to pay for the very basics like food, housing, medical care, and heating Not very hard [facility] Do you feel stress - tense, restless, nervous, or anxious, or unable to sleep at night because your mind is troubled all the time - these days [OSQ] Not at all [facility] Medical Equipment Procedure Code Equipment Code Equipment Origin al Text Equipment Identifier Dates Mesh Surgical Sy mbotex Polyester Collagen 3d Round L3.3 Mm X W2.3 Mm Od9 Cm 2 Side Composite Monofilament Bioabsorbable Film Sterile Disposable Green - [id number] Start: 03-05-2022 Clinical Notes 04-08-2021 to 06-15-2023 Eddy Moraes MD - 06/15/2023 8:47 AM ESTTelephone Encounter - Russel Wheat LPN - 06/11/2023 2:32 PM ESTTelephone Encounter - Baylee Teixeira MA - 06/09/2023 4:24 PM ESTInstructions Note Date & Type Note Facility 06-15-2023 Note HNO ID: [id number] Author: EDDY MORAES MD Service: ? Author [...] Visit completed when applicable. Sofia Moraes MD [facility] 06-15-2023 History of Present illness Narrative UNIVERSAL [...] Sofia Moraes MD documented in this encounter [facility] 06-11-2023 Miscellaneous Notes Please see pt's message. Russel Wheat LPN Ok for this to wait until he comes back into town. Baylee Teixeira MA documented in this encounter [facility] 05-21-2023 Note HNO ID: [id number] Author: CORONA WILSON RT(R) Service: Radiology Author [...] RT Ronnell(R) May 21, 2023 8:47 AM [facility] 05-21-2023 Note HNO ID: [id number] Author: RENÉE GIBSON PA-C Service: ? Author Type: Physician Peanut Butter Maker Type: Progress Notes Filed: 05/21/2023 09:23 Note [...] Abdominal hernia HIV (human immunodeficiency virus infection) ([facility]) 01/11/2023 Seeing ID: Dr. Tiffany [...] CRANBERRY ORAL Take by mouth once daily. nujpspjceil-bmjlodrbvyduf-ptpvdyd ir alafenamide (BIKTARVY) 50-200-25 mg per tablet [...] Chol/HDL Ratio, Nonfasti (more content not included)... [facility] 03-20-2023 Evaluation + Plan note Diagnostic Tests [facility] Send out (Blood Specimens) 03/20/23 [facility] 01-09-2023 Note HNO ID: [id number] Author: Russel Wheat LPN Service: ? Author Type: ? Type: Progress Notes Filed: 01/11/2023 3:40 PM Note Text: Scan on 01/08/2023 4:28 PM by ProviderWanda PA-C: Miscellaneous Clinical Documents [facility] 01-09-2023 History of Present illness Narrative Scan on 01/08/2023 4:28 PM by ProviderWanda PA-C: Miscellaneous Clinical Documents documented in this encounter [facility] 01-06-2023 Miscellaneous Notes Faxed results as instructed by pcp below. Please fax Hepatitis panel and HIV 1/[address] Allen's office at [phone] attn Edelmira. Spoke with patient and reviewed [...] state, and will be back in [place] tomorrow) After that he will be at work and cannot discuss this in front of his coworker. States he will be at home all day tomorrow but hoping pcp can call him before 10 am this morning. [phone]. Reports his ID provider is Dr. Allen. Reports Dr. Allen has an office in [place], but patient had to see him in the [place] office. Reports he has an appt with him this Thurs at 2 pm. Please find out from patient who the infectious disease provider he is seeing. documented in this encounter [facility] 01-05-2023 Miscellaneous Notes Patient notified and voiced understanding. Baylee Teixeira MA Let patient know Hep A, B and C were all negative. documented in this encounter [facility] 01-02-2023 Note HNO ID: [id number] Author: James Skinner MD Service: ? Author [...] three times a day. James Skinner MD [facility] 01-02-2023 History of Present illness Narrative Chief [...] James Skinner MD documented in this encounter [facility] 12-16-2022 Note HNO ID: [id number] Author: Renée Gibson PA-C Service: ? Author Type: Physician Peanut Butter Maker Type: Progress Notes Filed: 12/16/2022 10:34 AM [...] is due next October Renée Gibson PA-C [facility] 12-16-2022 History of Present illness Narrative Chief [...] Renée Gibson PA-C documented in this encounter [facility] 12-12-2022 Note HNO ID: [id number] Author: Costa Alvarado APRN.MASONRY INSTALLER Service: ? Author Type: Nurse Practitioner Type: [...] %. Physical Exam Exam conducted with a client services specialist present. Constitutional: General: He is not in [...] MG-TRIMETHOPRIM 160 MG TABLET Costa Alvarado APRN.CNP [facility] 10-22-2022 Evaluation + Plan note Associated Problem(s): Rash Unsure etiology. No improvement with prednisone. Consulted with Dr. Asencio who believes this is probably tinea versicolor. Will start fluconazole weekly x2 weeks and ketoconazole cream twice daily. If not improving in the next 6 to 8 weeks or worsens, consider referral to dermatology [facility] 10-22-2022 Miscellaneous Notes Associated Problem(s): Rash Unsure etiology. No improvement with prednisone. Consulted with Dr. Asencio who believes this is probably tinea versicolor. Will start fluconazole weekly x2 weeks and ketoconazole cream twice daily. If not improving in the next 6 to 8 weeks or worsens, consider referral to dermatology documented in this encounter [facility] 10-22-2022 History of Present illness Narrative [...] symptoms worsen or fail to improve. SUBJECTIVE/OBJECTIVE: [facility] - Ginny Carson (: 1975) is a [...] note. TU Rondon CNP 10/22/2022 7:11 AM Piler for Intimate and Non Intimate Exam Piler was declined Piler: keven documented in this encounter [facility] 10-17-2022 Evaluation + Plan note Associated Problem(s): Rash Unsure etiology. Vital signs stable. Rash is not that bothersome. Will start oral steroids, H2 brianne. Check CBC CMP. Follow-up as directed pending testing results or sooner for any worsening symptoms [facility] 10-17-2022 Miscellaneous Notes Associated Problem(s): Rash Unsure etiology. Vital signs stable. Rash is not that bothersome. Will start oral steroids, H2 brianne. Check CBC CMP. Follow-up as directed pending testing results or sooner for any worsening symptoms documented in this encounter [facility] 10-16-2022 History of Present illness Narrative Piler for Intimate and Non Intimate Exam Piler was declined Piler: keven Images from the original note were [...] when it had started ) Was in [place] a few weeks ago and noticed about [...] 10/16/2022 3:01 PM documented in this encounter [facility] 10-16-2022 Instructions TU Rondon CNP - 10/16/2022 3:00 PM EDT Famotidine (pepcid) 20 mg twice daily x 7 days. documented in this encounter [facility] 09-06-2022 History of Present illness Narrative Images from the original note were not included. 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 [place] [facility] [address] [place] [address] Dept: [phone] Dept PHYSICAL THERAPY TREATMENT Patient Name: Ginny [...] Janet Bess PT documented in this encounter [facility] 08-18-2022 History of Present illness Narrative Images from the original note were not included. [place] [facility] [place] [address] [place] [address] Dept: [phone] Dept PHYSICAL THERAPY TREATMENT Patient Name: Ginny [...] Janet Bess PT documented in this encounter [facility] 08-14-2022 History of Present illness Narrative Images from the original note were not included. 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 [facility] AT [address] [place] [address] Dept: [phone] Dept PHYSICAL THERAPY RE-EVALUATION Patient Name: Ginny [...] Janet Bess PT documented in this encounter [facility] 07-24-2022 History of Present illness Narrative Images from the original note were not included. [place] [facility] [place] [address] [place] [address] Dept: [phone] Dept PHYSICAL THERAPY TREATMENT Patient Name: Ginny [...] and not getting any answers. Patient Preferences: nAuj or Ginny Precautions/Red Flags: Subjective Pt denies [...] Jakub Schaeffer PTA documented in this encounter [facility] 07-21-2022 History of Present illness Narrative Images from the original note were not included. [facility] [place] [address] [place] [address] Dept: [phone] Dept PHYSICAL THERAPY TREATMENT Patient Name: Ginny [...] Jakub Schaeffer PTA documented in this encounter [facility] 06-30-2022 Note General Surgery Hist ory [...] kg/m? Physical Exam Exam conducted with a client services specialist present. Constitutional: Appearance: Normal appearance. HENT: Head: [...] Comments: External: External (more content not included)... [facility] 05-14-[address] referr al, thank you! [facility] 05-05-2022 Note Name: Ginny Carson Date [...] 23 EMB-19 Location: Testing was conducted at [facility] as an outpatient. [facility] 04-24-2022 Note General Surgery Hist ory and Physical Brandon Barrera MD Patient ID: Ginny Carson [id number] 46 y.o. 1975 CHIEF COMPLAINT: Chief Complaint [...] months ago incl (more content not included)... [facility] 04-18-2022 Note Addendum created 1031 by TU Dang CRNA Attestation recorded in Intraprocedure, Intraprocedure Attestations filed [facility] 04-11-2022 Note Referral to surgery for further evaluation and to determine the best way of imaging to see what this is or if it should just be removed. [facility] 03-05-2022 Note Patient: Ginny adrian Procedure Summary Date: 03/05/22 Room / Location: [address] Operating Room Anesthesia Start: 806 Anesthesia [...] once all PACU criteria has been met. [facility] 03-05-2022 Note Patient: Ginny adrian Procedure Summary Date: 03/05/22 Room / Location: [address] Operating Room Anesthesia Start: 806 Anesthesia [...] opportunity for questions and acknowledgement of understanding. [facility] 03-05-2022 Note Airway Date/Time: 03/05/2022 8:12 AM Urgency: scheduled Airway not difficult General Information and Staff Patient location during procedure: Procedural Resident/WHOLESALE ACCOUNT EXECUTIVE: TU Dang CRNA Performed: WHOLESALE ACCOUNT EXECUTIVE Indications and Patient Condition Indications for airway [...] lips Number of attempts at approach: 1 [facility] 03-05-2022 Note Peripheral Block Patient location during procedure: Procedural Start time: 03/05/2022 8:10 AM End time: 03/05/2022 8:10 AM Reason for block: at surgeon's request and post-op pain management Staffing Performed: WHOLESALE ACCOUNT EXECUTIVE Resident/WHOLESALE ACCOUNT EXECUTIVE: Thom Britton APRN - WHOLESALE ACCOUNT EXECUTIVE Preanesthetic Checklist Completed: patient identified, IV checked, site marked, risks and benefits discussed, surgical consent, monitors and equipment checked, pre-op evaluation and timeout performed Region: Truncal Primary: TAP and Upper rectus w/wo lower Secondary: Transversalis Fascia Plane (TAP) and Upper rectus Peripheral Block Patient position: supine Prep: ChloraPrep Patient monitoring: heart rate, monitor technician, continuous pulse ox and continuous capnometry O2: [...] plane. and Local anesthetic injected without difficulty [facility] 03-05-2022 Note General Surgery Hist ory and Physical Brandon Barrera MD Patient ID: Ginny Carson [id number] 46 y.o. 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 Asencio HPI: [...] Friends and Family: Not on file Attends Jewish Services: Not on file Active Member of [...] for seizures an (more content not included)... [facility] 03-05-2022 Note Patient: Ginny Rodriguez Katharina adrian Procedure Information Date/Time: 03/05/22 0800 Procedure: ROBOTIC (XI) LAPAROSCOPY REPAIR UMBILICAL HERNIA WITH MESH (Abdomen) Location: [address] Operating Room Surgeons: Brandon Barrera MD [...] Aortic valve: There is mild, 1+ regurgitation. [facility] 03-03-2022 Note Comprehensive PreSur gical History [...] area ONLY NEEDED lidocaine-EPINEPHrine (Xylocaine W/EPI) 1 %-1:790873 injection Inject 4 mL into the skin. [...] SCORE = 3 (more content not included)... [facility] 04-08-2021 History of Present illness Narrative Pt [...] instructions were given) documented in this encounter [employer] Work Phone: 04-08-2021 Hospital Discharge instructions Carrillo [...] and/or NSAIDS, please take your opioid prescription ([place]/vicodin/percocet have tylenol in them) as needed for [...] oxycodone (5mg) tablets if needed PLEASE CALL [phone] if you have any questions documented in this encounter [facility] Work Phone: documented in this encounter [facility] Work Phone: Evaluation note* Diagnosis Lumbar radiculopathy- Primary Thoracic or lumbosacral neuritis or radiculitis, unspecified documented in this encounter [facility] note* Diagnosis Lumbar radiculopathy- Primary Thoracic or lumbosacral neuritis or radiculitis, unspecified [facility] Diagnosis Lumbar radiculopathy- Primary Thoracic or lumbosacral neuritis or radiculitis, unspecified [facility]* Diagnosis Lumbar radiculopathy- Primary Thoracic or lumbosacral neuritis or radiculitis, unspecified documented [facility] encounter [facility]* Diagnosis Lumbar radiculopathy- Primary Thoracic or lumbosacral neuritis or radiculitis, unspecified documented in this encounter [facility] note* Diagnosis Radiculopathy, lumbar region- Primary Thoracic or lumbosacral neuritis or radiculitis, unspecified Radiculopathy, lumbar region Thoracic or lumbosacral neuritis or radiculitis, unspecified documented in this encounter [facility] note* Diagnosis Segmental and somatic dysfunction of lower extremity Pain in right hip documented in this encounter [facility] note* Diagnosis Lumbar radiculopathy- Primary Thoracic or lumbosacral neuritis or radiculitis, unspecified documented in this encounter [facility] note* Diagnosis Rash- Primary Rash and other nonspecific skin eruption documented in this encounter [facility] note* Diagnosis Tinea versicolor- Primary Pityriasis versicolor Rash Rash and other nonspecific skin eruption documented in this encounter [facility] note* Diagnosis Segmental and somatic dysfunction of lower extremity- Primary Pain in right hip documented in this encounter [facility] note* Diagnosis Marfan's disease- Primary Marfan's syndrome GERD without esophagitis Esophageal reflux Hyperlipidemia, mixed Mixed hyperlipidemia Screening for diabetes mellitus Encounter for lipid screening for cardiovascular disease Screening for lipoid disorders Chronic mixed headache syndrome Other headache syndromes Medication management Encounter for long-term (current) use of other medications documented in this encounter [facility] note* Diagnosis STD exposure- Primary Rash of genital area documented in this encounter [facility] note* Diagnosis HIV infection, unspecified symptom status (HCC) documented in this encounter [facility] note* Diagnosis Pain of right lower extremity Leg numbness Disturbance of skin sensation documented in this encounter [facility] course Narrative No data available for this section [facility] Hospital Discharge instructions No data available for this section [facility] Instructions* Attachments The following attachments cannot be sent through Care Everywhere. * Tinea Versicolor (Japanese) [facility] No data available for this section [facility] Reason for visit Narrative* Outpatient Procedure (Routine) - Closed Specialty Diagnoses / Procedures Referred By Contac t Referred To Contact [facility] Diagnoses Pain of right lower extremity Leg numbness Procedures EMG(NEURO/NI) NERVE CONDUCTION STUDIES 9-10 STUDIES Renée Gibson PA-C [address] [place] [address] [facility] [place] [address] [place] [address] Referral ID Status Reason Start Date Expiration Date V isits Requested Visits Authorized [id number] Closed Auto-Generate d Referral 05/21/2023 05/21/2024 1 1 [facility] Advance Directives No Advanced Directives Records FoundDocuments on File Type Date Recorded Patient Weather Stripper Expl anation Advance Directives and Living Will Advance Directives and Living Will 12/16/2018 10:34 AM 12/16/2018_Living Wi ll Power of Cnc Milling Machinist Power of Cnc Milling Machinist 12/16/2018 10:36 AM 11/26_POA Documents on File Type Date Recorded Patient Weather Stripper Expl anation ACP-Advance Directive ACP-Advance Directive 12/16/2018 10:34 AM 12/16/2018_Living Will ACP-Power of Cnc Milling Machinist ACP-Power of Cnc Milling Machinist 12/16/2018 10:36 AM 12/16/2018_POA Documents on File Type Date Recorded Patient Weather Stripper Expl anation ACP-Advance Directive ACP-Power of Cnc Milling Machinist ACP-Advance Directive 12/16/2018 10:34 AM 12/16/2018_Living Will ACP-Power of Cnc Milling Machinist 12/16/2018 10:36 AM 12/16/2018_POA Latest Code Status [...] W Doppler W Color Cosme Asencio MD [address] [place] [address], [place] [address] Assessments Diagnosis Marfan's syndrome Bicuspid aortic valve [...] DATE CREATED AUTHOR AUTHOR'S ORGANIZ ATION 04/11/2021 [facility] DATE CREATED AUTHOR AUTHOR'S ORGANIZ ATION 12/05/2022 [facility] DATE CREATED AUTHOR AUTHOR'S ORGANIZ ATION 05/08/2023 [facility] ([place]) DATE CREATED AUTHOR AUTHOR'S ORGANIZ ATION 06/15/2023 [facility] Ordered Prescriptions (unrec ognized section and content) [...] Care Teams (unrecognized sec tion and content) 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 Relationship Specialty Start Date End Date Cosme Asencio MD [address] [place], [place] [address] [address] PCP - General 12/16/18 Waterworks Operator Relationship Specialty Start Date End Date Cosme Asencio MD [address] [place] [id number] PCP - General 12/16/18 Waterworks Operator Relationship Specialty Start Date End Date Cosme Asencio MD [address] [place] [id number] PCP - General 12/16/18 Waterworks Operator Relationship Specialty Start Date End Date Cosme Asencio MD [address] [place] [address] PCP - General 12/16/18 Waterworks Operator Relationship Specialty Start Date End Date Cosme Asencio MD [address] [place] [id number] PCP - General 12/16/18 Waterworks Operator Relationship Specialty Start Date End Date Cosme Asencio MD [address] [place] [id number] PCP - General 12/16/18 Waterworks Operator Relationship Specialty Start Date End Date Cosme Asencio MD [address] [place], [place] [address], [place] [address] PCP - General 12/16/18 Waterworks Operator Relationship Specialty Start Date End Date Cosme Asencio MD [address] [place] [phone] PCP - General 12/16/18 Waterworks Operator Relationship Specialty Start Date End Date Cosme Asencio MD [address] [place] [id number] PCP - General 12/16/18 Waterworks Operator Relationship Specialty Start Date End Date Cosme Asencio MD [address] [place] [id number] PCP - General 12/16/18 Waterworks Operator Relationship Specialty Start Date End Date Cosme Asencio MD [address] [place] [address] PCP - General 12/16/18 Waterworks Operator Relationship Specialty Start Date End Date James Skinner MD [address] [place] [address] PCP - General Family Medicine 12/16/22 Waterworks Operator Relationship Specialty Start Date End Date James Skinner MD [facility] [place] [address] PCP - General Family Medicine 12/16/22 Waterworks Operator Relationship Specialty Start Date End Date James Skinner MD [address] [place] [address] PCP - General Family Medicine 12/16/22 Waterworks Operator Relationship Specialty Start Date End Date James Skinner MD [address] [place] [address] PCP - General Family Medicine 12/16/22 Waterworks Operator Relationship Specialty Start Date End Date James Skinner MD [address] [place] [address] PCP - General Family Medicine 12/16/22 Reason for Visit (unrecogniz ed section and content) Specialty Diagnoses / Procedures Referred By Contac t Referred To Contact Physical Therapy Diagnoses Numbness of right foot Lumbar spondylosis Chronic lumbar radiculopathy Sural neuropathy, right Procedures HI OFFICE/OUTPATIENT [facility] 60-74 MINUTES Meera Blair MD [address] [place] [address] [facility] [address] [place] [address] Referral ID Status Reason Start Date Expiration Date Visits Requested Visits Authorized [id number] Authorized Specialty Services Required 06/12/2022 06/12/2023 99 99 Reason Comments PT Treatment Specialty Diagnoses / Procedures Referred By Contac t Referred To Contact Physical Therapy Diagnoses Lumbar radiculopathy Procedures HI OFFICE/OUTPATIENT [facility] 60-74 MINUTES Peter Briseno MD [address] [address] [facility] [address] [place] [address] [place] [address] Referral ID Status Reason Start Date Expiration Date Visits Requested Visits Authorized [id number] Authorized Eval and Treat 05/27/2022 11/23/2022 60 60 Specialty Diagnoses / Procedures Referred By Contac t Referred To Contact Physical Therapy Diagnoses Lumbar radiculopathy Procedures HI OFFICE/OUTPATIENT [facility] 60-74 MINUTES Peter Briseno MD [address] [address] [facility] [address] [place] [address] Reason Comments Rash Seen about 10 days [...] or prosecute any alcohol or drug abuse patient.[facility] the event this information is protected by the Federal Confidentiality of Alcohol and Drug Abuse Patient Records regulations: The Federal rules restrict any use of the information to criminally investigate or prosecute any alcohol or drug abuse patient.[facility] Hospital[facility] the event this information is protected by the Federal Confidentiality of Alcohol and Drug Abuse Patient Records regulations: The Federal rules restrict any use of the information to criminally investigate or prosecute any alcohol or drug abuse patient.[facility] Hospital[facility] the event this information is protected by the Federal Confidentiality of Alcohol and Drug Abuse Patient Records regulations: The Federal rules restrict any use of the information to criminally investigate or prosecute any alcohol or drug abuse patient.[facility] Hospital[facility] the event this information is protected by the Federal Confidentiality of Alcohol and Drug Abuse Patient Records regulations: The Federal rules restrict any use of the information to criminally investigate or prosecute any alcohol or drug abuse patient.[facility] Hospital[facility] the event this information is protected by the Federal Confidentiality of Alcohol and Drug Abuse Patient Records regulations: The Federal rules restrict any use of the information to criminally investigate or prosecute any alcohol or drug abuse patient.[facility] Hospital[facility] the event this information is protected by the Federal Confidentiality of Alcohol and Drug Abuse Patient Records regulations: The Federal rules restrict any use of the information to criminally investigate or prosecute any alcohol or drug abuse patient.[facility] FOR RECORDS PERTAINING TO PATIENTS WHO [...] BE BASED ON THE PRIMARY CLINICAL RECORDS. [facility] [employer] [facility]. provides no warranty or guarantee of the accuracy or completeness of information in this document.
[2023-06-16 21:39] VITALS: BP 132/79; PULSE 81; RESP 18; TEMP 36.8; O2SAT 97
[2023-06-16 21:42] VITALS: BP 132/78; PULSE 81; RESP 19; TEMP 36.7; O2SAT 98
[2023-06-16 22:01] VITALS: BMI 31.5
[2023-06-16 22:06] VITALS: BP 140/72; PULSE 75; RESP 17; TEMP 36.6; O2SAT 95
[2023-06-17] VITALS (8 sets, daily range): BP systolic 114–140; BP diastolic 69–80; PULSE 69–85; RESP 16; TEMP 36.3–36.9; O2SAT 93–98; BMI 31.5
[2023-06-17] MEDS: 0.9% Normal Saline (250mL Bag) 250 ML 15 ML IV (00:11)
[2023-06-17] MEDS: Ciprofloxacin 400 MG/200 ML BAG 200 MG IV ×2 (00:12→10:10)
--- OUTSIDE RECORDS SUMMARY | 2023-06-17 00:31 | XMS RPT_ITS | CCD ---
Author Name Unknown Address [address] [place] [address] Organization [facility] Care Team Providers Care Sail Repair Person Name Role Phone Cosme Asencio Primary Care [...] Unavailable SERGIO, COSME Primary Care Unavailable DOMINGO, MEEAR Referring Unavailable DOMINGO, MEERA Attending Unavailable SERGIO, [...] MEERA Attending Unavailable BRANDON BARRERA Attending Unavailable RBANDON BARRERA Admitting Unavailable SERGIO, COSME Primary Care Unavailable BAVJOSHUA, PETER Referring Unavailable BAVJOSHUA, PETER Attending Unavailable SERGIO, COSME Primary Care Unavailable BAVPETER LEWIS Referring Unavailable BAVJOSHUA, PETER Attending Unavailable Sergio JIMENES, Cosme Denise Primary Care Provider James Skinner MD Primary Care Provider JAMES SKINNER MD Primary Care Physician [phone] JAMES SKINNER MD Primary Care Unavailable DISHA SENA DO Attending Unavailable JAMES SKINNER MD Primary Care Unavailable DISHA SENA DO Attending Unavailable JAMES SKINNER MD Primary Care Unavailable DISHA SENA DO Attending Unavailable JAMES SKINNER MD Primary Care Unavailable RAQUEL MAE-EMS DRIVER, ARNALOD Attending U lesaable JAMES SKINNER Attending Unavailable [...] sources) Other Propensity to adverse reactions 03-27-2018 [facility]- [place], [place] Medications Current Medications Medication [...] Local Anesthetic Start: 03-30-2018 lidocaine-EPINEPHri ne 1 percent-1:[id number] injection 4 mL 2 ml fentaNYL 0.05 [...] (8 sources) Patient encounter status; Translations: [Other half-way (current) drug therapy] Onset: 12-16-2022 12-16-2022 Episodic Other aftercare (1 source) Other half-way (current) drug therapy; Translations: [Medication management] Onset: [...] 101.15 kg James Skinner MD Work Phone: [facility] 01-02-2023 09:25-0400 Diastolic blood pressure 80 mm[Hg] James Skinner MD Work Phone: [facility] 01-02-2023 09:25-0400 Heart rate 74 /min James Skinner MD Work Phone: [facility] 01-02-2023 09:25-0400 Respiratory rate 12 /min James Skinner MD Work Phone: [facility] 01-02-2023 09:25-0400 Systolic blood pressure 118 mm[Hg] James Skinner MD Work Phone: [facility] 12-16-2022 07:10-0400 Body height 192 cm Renée Gibson PA-C Work Phone: [facility] 12-16-2022 07:10-0400 Body temperature 97.59 [degF] Renée Gibson PA-C Work Phone: [facility] 12-16-2022 07:10-0400 Body weight 103.87 kg Renée Gibson PA-C Work Phone: [facility] 12-16-2022 07:10-0400 Diastolic blood pressure 62 mm[Hg] Renée Gibson PA-C Work Phone: [facility] 12-16-2022 07:10-0400 Heart rate 78 /min Renée Gibson PA-C Work Phone: [facility] 12-16-2022 07:10-0400 Respiratory rate 18 /min Renée Gibson PA-C Work Phone: [facility] 12-16-2022 07:10-0400 Systolic blood pressure 100 mm[Hg] Renée Gibson PA-C Work Phone: [facility] 10-22-2022 09:05-0400 Body mass index (BMI) [Ratio] 27.68 kg/m2 Rachel Bridenthal SYSTEMS ANALYST - EMS DRIVER Work Phone: [facility] [employer] 10-22-2022 09:05-0400 Body temperature 98.2 [degF] Rachel Bridenthal SYSTEMS ANALYST - EMS DRIVER Work Phone: [facility] [employer] 10-22-2022 09:05-0400 Body weight 105.87 kg Rachel Bridenthal SYSTEMS ANALYST - EMS DRIVER Work Phone: [facility] [employer] 10-22-2022 09:05-0400 Diastolic blood pressure 72 mm[Hg] Rachel Bridenthal SYSTEMS ANALYST - EMS DRIVER Work Phone: [facility] [employer] 10-22-2022 09:05-0400 Heart rate 74 /min Rachel Bridenthal SYSTEMS ANALYST - EMS DRIVER Work Phone: [facility] [employer] 10-22-2022 09:05-0400 Respiratory rate 16 /min Rachel Bridenthal SYSTEMS ANALYST - EMS DRIVER Work Phone: [facility] [employer] 10-22-2022 09:05-0400 SaO2% (BldA) [Mass fraction] 99 % Rachel Bridenthal SYSTEMS ANALYST - EMS DRIVER Work Phone: [facility] [employer] 10-22-2022 09:05-0400 Systolic blood pressure 113 mm[Hg] Rachel Bridenthal SYSTEMS ANALYST - EMS DRIVER Work Phone: [facility] [employer] 10-16-2022 14:55-0400 Body mass index (BMI) [Ratio] 28.08 kg/m2 Rachel Bridenthal SYSTEMS ANALYST - EMS DRIVER Work Phone: [facility] [employer] 10-16-2022 14:55-0400 Body temperature 98.2 [degF] Rachel Bridenthal SYSTEMS ANALYST - EMS DRIVER Work Phone: [facility] [employer] 10-16-2022 14:55-0400 Body weight 107.41 kg Rachel Bridenthal SYSTEMS ANALYST - EMS DRIVER Work Phone: [facility] 10-16-2022 14:55-0400 Diastolic blood pressure 74 mm[Hg] Rachel Bridenthal SYSTEMS ANALYST - EMS DRIVER Work Phone: [facility] 10-16-2022 14:55-0400 Heart rate 75 /min Rachel Bridenthal SYSTEMS ANALYST - EMS DRIVER Work Phone: [facility] 10-16-2022 14:55-0400 Respiratory rate 20 /min Rachel Bridenthal SYSTEMS ANALYST - EMS DRIVER Work Phone: [facility] 10-16-2022 14:55-0400 Systolic blood pressure 111 mm[Hg] Rachel Bridenthal SYSTEMS ANALYST - EMS DRIVER Work Phone: [facility] 04-08-2021 16:30-0500 Diastolic blood pressure 70 mm[Hg] Yayo Cid MD Work Phone: [facility] 04-08-2021 16:30-0500 Heart rate 85 /min Yayo Cid MD Work Phone: [facility] 04-08-2021 16:30-0500 Respiratory rate 16 /min Yayo Cid MD Work Phone: [facility] 04-08-2021 16:30-0500 SaO2% (BldA) [Mass fraction] 99 % Yayo Cid MD Work Phone: [facility] 04-08-2021 16:30-0500 Systolic blood pressure 130 mm[Hg] Yayo Cid MD Work Phone: [facility] 04-08-2021 16:00-0500 Body temperature 97 [degF] Yayo Cid MD Work Phone: [facility] 04-08-2021 11:53-0500 Body height 195.6 cm Yayo Cid MD Work Phone: [facility] 04-08-2021 11:53-0500 Body mass index (BMI) [Ratio] 28.93 kg/m2 Yayo Cid MD Work Phone: [facility] 04-08-2021 11:53-0500 Body weight 110.68 kg Yayo Cid MD Work Phone: [facility] Encounters Encounter Date Encounter Type Care Provider Facility Start: 06-15-2023 End: 06-15-2023 ambulatory JAMES SKINNER Facility:[facility] Start: 06-15-2023 End: 06-15-2023 ambulatory Emg 850) Neurology Start: 06-15-2023 End: 06-15-2023 Patient encounter procedure Emg 1 Neur [facility] (Max Weight: 850) [facility] Start: 06-09-2023 ambulatory James alatorre MD Work [...] with white cell differential, automated Rachel Serge SYSTEMS ANALYST - EMS DRIVER Work Phone: Start: 10-16-2022 Comprehensive metabo lic panel Rachel Serge SYSTEMS ANALYST - EMS DRIVER Work Phone: Start: 06-11-2022 Adult depression scr [...] P,Tdap,Td Vaccine (2 - Td or Tdap) [facility] Start: 04-08-2031 Screening for malign ant neoplasm of colon [facility] Start: 05-12-2028 Lipid panel Lipid Screening [facility] Start: 10-30-2027 Lipid 1996 panel - S khurram or Plasma Lipid Screening [facility] Start: 10-30-2027 Lipid panel Lipid Panel [facility] Start: 10-30-2027 LIPID SCREEN LIPID SCREEN [facility] Start: 12-13-2026 Lipid panel Lipid Panel [facility] Start: 05-12-2026 Diabetes Screening Diabetes Screenin g [facility] Start: 01-09-2026 Diabetes Screening Diabetes Screenin g [facility] Start: 10-29-2025 Diabetes mellitus screening Diabetes Screening [facility] Start: 10-29-2025 DIABETES SCREEN DIABETES SCREEN [facility] Start: 10-29-2025 Diabetes Screening Diabetes Screenin g [facility] Start: 04-26-2024 Depression [facility] Immunizations Immunization Date Immunization Notes Care Provider Marisa guerin 05-21-2023 tetanus toxoid, redu fredrick diphtheria toxoid, and acellular pertussis vaccine, adsorbed James Skinner MD Work Phone: [facility] 02-19-2023 hepatitis A vaccine, adult dosage James Skinner MD Work Phone: [facility] 01-12-2023 influenza, injectabl e, quadrivalent, preservative free James Skinner MD Work Phone: [facility] 04-17-2021 Moderna SARS-CoV-2 Vaccination [facility] 03-15-2021 Moderna SARS-CoV-2 Vaccination [facility] Payers Date Payer Category Payer Self-pay 2021 Unknown [id number] 2020 Unknown [id number] 2016 Unknown BCBS BC[place] - [place] P PO xxxxxxxxxxxx 2016-Present [address] [place] [address] xxxxxxxxxxxx [id number] 2016 Unknown [place] P PO [id number] 2016-Present [address] [place] [address] [id number] 1973 Unknown [id number] 1975 Unknown [id number] 1975 Unknown [id number] Unknown [id number] Social History Date Type Detail Facility Start: 11-01-2019 End: 12-12-2022 Tobacco smoking status [facility] Never smoker [facility] Start: 11-01-2019 End: 05-21-2023 Alcohol intake Current drinker of alcohol (finding) [place], [place] Start: 12-16-2018 History SDOH Physica l Activity DPW 0 [place] Start: 12-16-2018 End: 10-12-2020 History SDOH Financial 4 [place] Start: 12-16-2018 End: 03-18-2022 History SDOH Food Worry 1 [place], [place] Start: 12-16-2018 End: 03-18-2022 History SDOH Transport Med 2 [place] Start: 12-16-2018 Alcohol Comment occasionally [place] Start: 1975 Sex Assigned At Not on file M [facility] MD Exposure to SARS-CoV -2 (event) [facility] Start: 11-22-2019 End: 12-12-2022 Tobacco use and exposure [facility] Start: 06-20-2022 End: 10-29-2022 Exposure to SARS-CoV-2 (event) [facility] sure [facility] Start: 04-08-2021 End: 01-02-2023 [facility] Work Phone: Start: 10-12-2020 History SDOH Physica l Activity DPW 3 [facility] Work Phone: Start: 1975 Sex Assigned At Male S [facility] Start: 03-18-2022 History SDOH Financial 5 [facility] [employer] Start: 10-16-2022 End: 01-02-2023 Tobacco use panel [facility] [employer] How hard is it for y ou to pay for the very basics like food, housing, medical care, and heating Not hard at all [facility] [employer] (I/We) worried doug er (my/our) food would run out before (I/we) got money to buy more. Never true [facility] [employer] Start: 02-13-2022 Gender identity Identifies as male gender (finding) [facility] Start: 12-16-2022 Alcohol Comment occ [facility] Tobacco smoking status No Smokin g Status Entered [facility] Has the [employer], or [employer] threatened to shut off services in your home in past 12Mo No [facility] Are you now , , , , never or living with a partner? [facility] How often do you hav e 6 or more drinks on 1 occasion? Never [facility] How hard is it for y ou to pay for the very basics like food, housing, medical care, and heating Not very hard [facility] Do you feel stress - tense, restless, nervous, or anxious, or unable to sleep at night because your mind is troubled all the time - these days [OSQ] Not at all [facility] Medical Equipment Procedure Code Equipment Code Equipment Origin al Text Equipment Identifier Dates Mesh Surgical Sy mbotex Polyester Collagen 3d Round L3.3 Mm X W2.3 Mm Od9 Cm 2 Side Composite Monofilament Bioabsorbable Film Sterile Disposable Green - [id number] Start: 03-05-2022 Clinical Notes 04-08-2021 to 06-15-2023 Eddy Moraes MD - 06/15/2023 8:47 AM ESTTelephone Encounter - Russel Wheat LPN - 06/11/2023 2:32 PM ESTTelephone Encounter - Baylee Teixeira MA - 06/09/2023 4:24 PM ESTInstructions Note Date & Type Note Facility 06-15-2023 Note HNO ID: [id number] Author: EDDY MORAES MD Service: ? Author [...] Visit completed when applicable. Sofia Moraes MD [facility] 06-15-2023 History of Present illness [...] Sofia Moraes MD documented in this encounter [facility] 06-11-2023 Miscellaneous Notes Please see pt's message. Russel Wheat LPN Ok for this to wait until he comes back into town. Baylee Teixeira MA documented in this encounter [facility] 05-21-2023 Note HNO ID: [id number] Author: CORONA WILOSN RT(R) Service: Radiology Author Type: Technologist Type: [...] RT Ronnell(R) May 21, 2023 8:47 AM [facility] 05-21-2023 Note HNO ID: [id number] Author: RENÉE GIBSON PA-C Service: ? Author Type: Physician Office Cashier Type: Progress Notes Filed: 05/21/2023 09:23 Note [...] HIV (human immunodeficiency virus infection) ([facility]) 01/11/2023 Seeing ID: Dr. Tiffany Rey Inguinal [...] CRANBERRY ORAL Take by mouth once daily. dnqcdqyplos-grdslfnbidfgt-jptjvmk ir alafenamide (BIKTARVY) 50-200-25 mg per tablet [...] Chol/HDL Ratio, Nonfasti (more content not included)... [facility] 03-20-2023 Evaluation + Plan note Diagnostic Tests [facility] Lab Send out (Blood Specimens) 03/20/23 [facility] 01-09-2023 Note HNO ID: [id number] Author: Russel Wheat LPN Service: ? Author Type: ? Type: Progress Notes Filed: 01/11/2023 3:40 PM Note Text: Scan on 01/08/2023 4:28 PM by ProviderWanda PA-C: Miscellaneous Clinical Documents [facility] 01-09-2023 History of Present illness Narrative Scan on 01/08/2023 4:28 PM by ProviderWanda PA-C: Miscellaneous Clinical Documents documented in this encounter [facility] 01-06-2023 Miscellaneous Notes Faxed results as instructed by pcp below. Please fax Hepatitis panel and HIV 1/[address] Allen's office at [phone] attn Edelmira. Spoke with patient and reviewed [...] state, and will be back in [place] tomorrow) After that he will be at work and cannot discuss this in front of his coworker. States he will be at home all day tomorrow but hoping pcp can call him before 10 am this morning. [phone]. Reports his ID provider is Dr. Allen. Reports Dr. Allen has an office in [place], but patient had to see him in the Center office. Reports he has an appt with him this Thurs at 2 pm. Please find out from patient who the infectious disease provider he is seeing. documented in this encounter [facility] 01-05-2023 Miscellaneous Notes Patient notified and voiced understanding. Baylee Teixeira MA Let patient know Hep A, B and C were all negative. documented in this encounter [facility] 01-02-2023 Note HNO ID: [id number] Author: James Skinner MD Service: ? Author [...] three times a day. James Skinner MD [facility] 01-02-2023 History of Present illness [...] James Skinner MD documented in this encounter [facility] 12-16-2022 Note HNO ID: [id number] Author: Renée Gibson PA-C Service: ? Author Type: Physician Office Cashier Type: Progress Notes Filed: 12/16/2022 10:34 AM [...] is due next October Renée Gibson PA-C [facility] 12-16-2022 History of Present illness [...] Renée Gibson PA-C documented in this encounter [facility] 12-12-2022 Note HNO ID: [id number] Author: Costa Alvarado APRN.EMS DRIVER Service: ? Author Type: Nurse Practitioner Type: [...] %. Physical Exam Exam conducted with a softball winder present. Constitutional: General: He is not in [...] MG-TRIMETHOPRIM 160 MG TABLET Costa Alvarado APRN.CNP [facility] 10-22-2022 Evaluation + Plan note Associated Problem(s): Rash Unsure etiology. No improvement with prednisone. Consulted with Dr. Asencio who believes this is probably tinea versicolor. Will start fluconazole weekly x2 weeks and ketoconazole cream twice daily. If not improving in the next 6 to 8 weeks or worsens, consider referral to dermatology [facility] 10-22-2022 Miscellaneous Notes Associated Problem(s): Rash Unsure etiology. No improvement with prednisone. Consulted with Dr. Asencio who believes this is probably tinea versicolor. Will start fluconazole weekly x2 weeks and ketoconazole cream twice daily. If not improving in the next 6 to 8 weeks or worsens, consider referral to dermatology documented in this encounter [facility] 10-22-2022 History of Present illness Narrative Images [...] symptoms worsen or fail to improve. SUBJECTIVE/OBJECTIVE: [facility] - Ginny Carson (: 1975) is [...] note. TU Rondon CNP 10/22/2022 7:11 AM Electric Welder Helper for Intimate and Non Intimate Exam Electric Welder Helper was declined Electric Welder Helper: keven documented in this encounter [facility] 10-17-2022 Evaluation + Plan note Associated Problem(s): Rash Unsure etiology. Vital signs stable. Rash is not that bothersome. Will start oral steroids, H2 brianne. Check CBC CMP. Follow-up as directed pending testing results or sooner for any worsening symptoms [facility] 10-17-2022 Miscellaneous Notes Associated Problem(s): Rash Unsure etiology. Vital signs stable. Rash is not that bothersome. Will start oral steroids, H2 brianne. Check CBC CMP. Follow-up as directed pending testing results or sooner for any worsening symptoms documented in this encounter [facility] 10-16-2022 History of Present illness Narrative Electric Welder Helper for Intimate and Non Intimate Exam Electric Welder Helper was declined Electric Welder Helper: keven Images from the original note were [...] 10/16/2022 3:01 PM documented in this encounter [facility] 10-16-2022 Instructions TU Rondon CNP - 10/16/2022 3:00 PM EDT Famotidine (pepcid) 20 mg twice daily x 7 days. documented in this encounter [facility] [employer] 09-06-2022 History of Present illness Narrative Images from the original note were not included. [facility] AT [address] [place] [address] Dept: [phone] Dept PHYSICAL THERAPY TREATMENT Patient Name: Ginny [...] #50 3 laps ea Activity 5 Comment: (TRAIN CONTROL ELECTRONIC TECHNICIAN) SLS airex 30 x2 corey; SLS plyo [...] Procedures Time Entry Therapeutic Exercise Time Entry: Jimnea Owen PTA documented in this encounter [facility] 08-25-2022 History of Present illness Narrative Images from the original note were not included. [facility] [place] [facility] [address] [place] [address] Dept: [phone] Dept PHYSICAL THERAPY TREATMENT Patient Name: Ginny [...] Janet Bess PT documented in this encounter [facility] [employer] 08-18-2022 History of Present illness Narrative Images from the original note were not included. [facility] [place] [facility] [place] [address] [place] [address] Dept: [phone] Dept PHYSICAL THERAPY TREATMENT Patient Name: Ginny [...] Janet Bess PT documented in this encounter [facility] 08-14-2022 History of Present illness Narrative Images from the original note were not included. [facility] [place] [facility] AT [address] [place] [address] Dept: [phone] Dept PHYSICAL THERAPY TREATMENT Patient Name: Ginny [...] 3 Comment: quad LE extension 2x10 ea (TRAIN CONTROL ELECTRONIC TECHNICIAN); palloff press #45 x20 ea; palloff circles 2x10 GTB (TRAIN CONTROL ELECTRONIC TECHNICIAN) Soft Tissue Mobilization Location: RLE Body Position: [...] Janet Bess PT documented in this encounter [facility] 08-05-2022 History of Present illness Narrative Images from the original note were not included. [facility] [address] [place] [address] Dept: [phone] Dept PHYSICAL THERAPY RE-EVALUATION Patient Name: Ginny [...] Janet Bess PT documented in this encounter [facility] [employer] 07-24-2022 History of Present illness Narrative Images from the original note were not included. [facility] [place] [facility] AT [place] [address] [place] [address] Dept: [phone] Dept PHYSICAL THERAPY TREATMENT Patient Name: Ginny [...] Jakub Schaeffer PTA documented in this encounter [facility] 07-21-2022 History of Present illness Narrative Images from the original note were not included. [facility] [place] [address] [place] [address] Dept: [phone] Dept PHYSICAL THERAPY TREATMENT Patient Name: Ginny [...] Jakub Schaeffer PTA documented in this encounter [facility] 06-30-2022 Note General Surgery Hist ory and [...] kg/m? Physical Exam Exam conducted with a softball winder present. Constitutional: Appearance: Normal appearance. HENT: Head: [...] Comments: External: External (more content not included)... [facility] 05-14-[address] ref[address] al, thank you! [facility] 05-05-2022 Note Name: Ginny Carson Date [...] 23 EMB-19 Location: Testing was conducted at [facility] as an outpatient. [facility] 04-24-2022 Note General Surgery Hist ory and Physical Brandon Barrera MD Patient ID: Ginny Carson [id number] 46 y.o. 1975 CHIEF COMPLAINT: Chief Complaint [...] months ago incl (more content not included)... [facility] 04-18-2022 Note Addendum created 1031 by TU Dang CRNA Attestation recorded in Intraprocedure, Intraprocedure Attestations filed [facility] 04-11-2022 Note Referral to surgery for further evaluation and to determine the best way of imaging to see what this is or if it should just be removed. [facility] 03-05-2022 Note Patient: Ginny adrian Procedure Summary Date: 03/05/22 Room / Location: [address] Operating Room Anesthesia Start: 806 Anesthesia [...] once all PACU criteria has been met. [facility] 03-05-2022 Note Patient: Ginny adrian Procedure Summary Date: 03/05/22 Room / Location: [address] Operating Room Anesthesia Start: 806 Anesthesia [...] opportunity for questions and acknowledgement of understanding. [facility] 03-05-2022 Note Airway Date/Time: 03/05/2022 8:12 AM Urgency: scheduled Airway not difficult General Information and Staff Patient location during procedure: Procedural Resident/NICKEL PLANT OPERATOR: TU Dang CRNA Performed: NICKEL PLANT OPERATOR Indications and Patient Condition Indications for airway [...] lips Number of attempts at approach: 1 [facility] 03-05-2022 Note Peripheral Block Patient location during procedure: Procedural Start time: 03/05/2022 8:10 AM End time: 03/05/2022 8:10 AM Reason for block: at surgeon's request and post-op pain management Staffing Performed: NICKEL PLANT OPERATOR Resident/NICKEL PLANT OPERATOR: Thom Britton APRN - NICKEL PLANT OPERATOR Preanesthetic Checklist Completed: patient identified, IV checked, site marked, risks and benefits discussed, surgical consent, monitors and equipment checked, pre-op evaluation and timeout performed Region: Truncal Primary: TAP and Upper rectus w/wo lower Secondary: Transversalis Fascia Plane (TAP) and Upper rectus Peripheral Block Patient position: supine Prep: ChloraPrep Patient monitoring: heart rate, technical support technician, continuous pulse ox and continuous capnometry [...] plane. and Local anesthetic injected without difficulty [facility] 03-05-2022 Note General Surgery Hist ory and Physical Brandon Barrera MD Patient ID: Ginny Carson [id number] 46 y.o. 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 Asencio HPI: [...] Friends and Family: Not on file Attends [employer]: Not on file Active Member of [...] for seizures an (more content not included)... [facility] 03-05-2022 Note Patient: Ginny Rodriguez Katharina adrian Procedure Information Date/Time: 03/05/22 0800 Procedure: ROBOTIC (XI) LAPAROSCOPY REPAIR UMBILICAL HERNIA WITH MESH (Abdomen) Location: [address] Operating Room Surgeons: Brandon Barrera MD [...] Aortic valve: There is mild, 1+ regurgitation. [facility] 03-03-2022 Note Comprehensive PreSur gical History [...] area ONLY NEEDED lidocaine-EPINEPHrine (Xylocaine W/EPI) 1 %-1:[id number] injection Inject 4 mL into the skin. [...] SCORE = 3 (more content not included)... [facility] [employer] [facility] 04-08-2021 History of Present illness Narrative [...] instructions were given) documented in this encounter [employer] Work Phone: 04-08-2021 Hospital Discharge instructions Carrillo [...] and/or NSAIDS, please take your opioid prescription ([place]/vicodin/percocet have tylenol in them) as needed for [...] oxycodone (5mg) tablets if needed PLEASE CALL [phone] if you have any questions documented in this encounter [facility] Work Phone: documented in this encounter [facility] Work Phone: Evaluation note* Diagnosis Lumbar radiculopathy- Primary Thoracic or lumbosacral neuritis or radiculitis, unspecified documented in this encounter [facility]* Diagnosis Lumbar radiculopathy- Primary Thoracic or lumbosacral neuritis or radiculitis, unspecified [facility]* Diagnosis Lumbar radiculopathy- Primary Thoracic or lumbosacral neuritis or radiculitis, unspecified documented [facility]* Diagnosis Lumbar radiculopathy- Primary Thoracic or lumbosacral neuritis or radiculitis, unspecified documented in this encounter [facility]* Diagnosis Lumbar radiculopathy- Primary Thoracic or lumbosacral neuritis or radiculitis, unspecified documented in this encounter [facility] note* Diagnosis Radiculopathy, lumbar region- Primary Thoracic or lumbosacral neuritis or radiculitis, unspecified Radiculopathy, lumbar region Thoracic or lumbosacral neuritis or radiculitis, unspecified documented in this encounter [facility] note* Diagnosis Segmental and somatic dysfunction of lower extremity Pain in right hip documented in this encounter [facility] note* Diagnosis Lumbar radiculopathy- Primary Thoracic or lumbosacral neuritis or radiculitis, unspecified documented in this encounter [facility] note* Diagnosis Rash- Primary Rash and other nonspecific skin eruption documented in this encounter [facility] note* Diagnosis Tinea versicolor- Primary Pityriasis versicolor Rash Rash and other nonspecific skin eruption documented in this encounter [facility] note* Diagnosis Segmental and somatic dysfunction of lower extremity- Primary Pain in right hip documented in this encounter [facility] note* Diagnosis Marfan's disease- Primary Marfan's syndrome GERD without esophagitis Esophageal reflux Hyperlipidemia, mixed Mixed hyperlipidemia Screening for diabetes mellitus Encounter for lipid screening for cardiovascular disease Screening for lipoid disorders Chronic mixed headache syndrome Other headache syndromes Medication management Encounter for long-term (current) use of other medications documented in this encounter [facility] note* Diagnosis STD exposure- Primary Rash of genital area documented in this encounter [facility] note* Diagnosis HIV infection, unspecified symptom status (HCC) documented in this encounter [facility] note* Diagnosis Pain of right lower extremity Leg numbness Disturbance of skin sensation documented in this encounter [facility] course Narrative No data available for this section [facility] Hospital Discharge instructions No data available for this section [facility] Instructions* Attachments The following attachments cannot be sent through Care Everywhere. * Tinea Versicolor (Italian) [facility] No data available for this section [facility] Reason for visit Narrative* Outpatient Procedure (Routine) - Closed Specialty Diagnoses / Procedures Referred By Contac t Referred To Contact [facility] Diagnoses Pain of right lower extremity Leg numbness Procedures EMG(NEURO/NI) NERVE CONDUCTION STUDIES 9-10 STUDIES Renée Gibson PA-C [address] [place] [address] [facility] [place] [address] [place] [address] Referral ID Status Reason Start Date Expiration Date V isits Requested Visits Authorized [id number] Closed Auto-Generate d Referral 05/21/2023 05/21/2024 1 1 [facility] Advance Directives No Advanced Directives Records FoundDocuments on File Type Date Recorded Patient Cost Control Analyst Expl anation Advance Directives and Living Will Advance Directives and Living Will 12/16/2018 10:34 AM 12/16/2018_Living Wi ll Power of Machine Operator Picker Power of Machine Operator Picker 12/16/2018 10:36 AM 11/26_POA Documents on File Type Date Recorded Patient Cost Control Analyst Expl anation ACP-Advance Directive ACP-Advance Directive 12/16/2018 10:34 AM 12/16/2018_Living Will ACP-Power of Machine Operator Picker ACP-Power of Machine Operator Picker 12/16/2018 10:36 AM 12/16/2018_POA Documents on File Type Date Recorded Patient Cost Control Analyst Expl anation ACP-Advance Directive ACP-Power of Machine Operator Picker ACP-Advance Directive 12/16/2018 10:34 AM 12/16/2018_Living Will ACP-Power of Machine Operator Picker 12/16/2018 10:36 AM 12/16/2018_POA Latest Code Status [...] W Doppler W Color Cosme Asencio MD [address] [place] [address], [place] [address] Assessments Diagnosis Marfan's syndrome Bicuspid aortic valve [...] DATE CREATED AUTHOR AUTHOR'S ORGANIZ ATION 04/11/2021 [employer] DATE CREATED AUTHOR AUTHOR'S ORGANIZ ATION 12/05/2022 [employer] [facility] DATE CREATED AUTHOR AUTHOR'S ORGANIZ ATION 05/08/2023 [facility] ([place]) DATE CREATED AUTHOR AUTHOR'S ORGANIZ ATION 06/15/2023 [facility] Ordered Prescriptions (unrec ognized section [...] Care Teams (unrecognized sec tion and content) Sail Repair Person Relationship Specialty Start Date End Date Cosem Asencio MD [address] [place], [place] [address] [address] PCP - General 12/16/18 Sail Repair Person Relationship Specialty Start Date End Date Cosme Asencio MD [address] [place] [id number] PCP - General 12/16/18 Sail Repair Person Relationship Specialty Start Date End Date Cosme Asencio MD [address] [place] [address] PCP - General 12/16/18 Sail Repair Person Relationship Specialty Start Date End Date Cosme Asencio MD [address] [place] [address] PCP - General 12/16/18 Sail Repair Person Relationship Specialty Start Date End Date Cosme Asencio MD [address] [place] [address] PCP - General 12/16/18 Sail Repair Person Relationship Specialty Start Date End Date Cosme Asencio MD [address] [place] [address] PCP - General 12/16/18 Sail Repair Person Relationship Specialty Start Date End Date Cosme Asencio MD [address] [place], [place] [address], [place] [address] PCP - General 12/16/18 Sail Repair Person Relationship Specialty Start Date End Date Cosme Asencio MD [address] [place] [address] PCP - General 12/16/18 Sail Repair Person Relationship Specialty Start Date End Date Cosme Asencio MD [address] [place] [address] PCP - General 12/16/18 Sail Repair Person Relationship Specialty Start Date End Date Cosme Asencio MD [address] [place] [address] PCP - General 12/16/18 Sail Repair Person Relationship Specialty Start Date End Date Cosme Asencio MD [address] [place] [address] PCP - General 12/16/18 Sail Repair Person Relationship Specialty Start Date End Date James Skinner MD [address] [address] PCP - General Family Medicine 12/16/22 Sail Repair Person Relationship Specialty Start Date End Date James Skinner MD [facility] [place] [address] PCP - General Family Medicine 12/16/22 Sail Repair Person Relationship Specialty Start Date End Date James Skinner MD [address] [place] [address] PCP - General Family Medicine 12/16/22 Sail Repair Person Relationship Specialty Start Date End Date James Skinner MD [address] [place] [address] PCP - General Family Medicine 12/16/22 Sail Repair Person Relationship Specialty Start Date End Date James Skinner MD [address] [place] [address] PCP - General Family Medicine 12/16/22 Reason for Visit (unrecogniz ed section and content) Specialty Diagnoses / Procedures Referred By Contac t Referred To Contact Physical Therapy Diagnoses Numbness of right foot Lumbar spondylosis Chronic lumbar radiculopathy Sural neuropathy, right Procedures [place] OFFICE/OUTPATIENT [facility] 60-74 MINUTES Meera Blair MD [address] [place] [address] [facility] [address] [place] [address] Referral ID Status Reason Start Date Expiration Date Visits Requested Visits Authorized [id number] Authorized Specialty Services Required 06/12/2022 06/12/2023 99 99 Reason Comments PT Treatment Specialty Diagnoses / Procedures Referred By Contac t Referred To Contact Physical Therapy Diagnoses Lumbar radiculopathy Procedures [facility] OFFICE/OUTPATIENT [facility] 60-74 MINUTES Peter Briseno MD [address] [address] [facility] [address] [place] [address] [place] [address] Referral ID Status Reason Start Date Expiration Date Visits Requested Visits Authorized [id number] Authorized Eval and Treat 05/27/2022 11/23/2022 60 60 Specialty Diagnoses / Procedures Referred By Contac t Referred To Contact Physical Therapy Diagnoses Lumbar radiculopathy Procedures [facility] OFFICE/OUTPATIENT [facility] 60-74 MINUTES Peter Briseno MD [address] [address] [facility] [address] [place] [address] Reason Comments Rash Seen about 10 days [...] or prosecute any alcohol or drug abuse patient.[facility] the event this information is protected by the Federal Confidentiality of Alcohol and Drug Abuse Patient Records regulations: The Federal rules restrict any use of the information to criminally investigate or prosecute any alcohol or drug abuse patient.[facility] the event this information is protected by the Federal Confidentiality of Alcohol and Drug Abuse Patient Records regulations: The Federal rules restrict any use of the information to criminally investigate or prosecute any alcohol or drug abuse patient.[facility] Center[facility] the event this information is protected by the Federal Confidentiality of Alcohol and Drug Abuse Patient Records regulations: The Federal rules restrict any use of the information to criminally investigate or prosecute any alcohol or drug abuse patient.[facility] Center[facility] the event this information is protected by the Federal Confidentiality of Alcohol and Drug Abuse Patient Records regulations: The Federal rules restrict any use of the information to criminally investigate or prosecute any alcohol or drug abuse patient.[facility] Center[facility] the event this information is protected by the Federal Confidentiality of Alcohol and Drug Abuse Patient Records regulations: The Federal rules restrict any use of the information to criminally investigate or prosecute any alcohol or drug abuse patient.[facility] Center[facility] the event this information is protected by the Federal Confidentiality of Alcohol and Drug Abuse Patient Records regulations: The Federal rules restrict any use of the information to criminally investigate or prosecute any alcohol or drug abuse patient.[facility] FOR RECORDS PERTAINING TO PATIENTS WHO [...] BE BASED ON THE PRIMARY CLINICAL RECORDS. [facility]. provides no warranty or guarantee of the accuracy or completeness of information in this document.
[2023-06-17] MEDS: 0.9% Saline Lock 10 ML Syringe IV (04:16)
[2023-06-17] MEDS: Morphine 2 MG/ML Syringe IV (04:16)
--- NOTE | 2023-06-17 07:40 | HP.PCM_ITS ---
HPI - General General Date of Admission: 06/16/23 Date of Service: 06/17/23 Chief Complaint: Right kidney stone HPI Narrative GINNY ARECHIGA, is a 47 M who presents large stone in the proximal right ureter he was admitted for pain control and renal sufficiency with plan to place a stent today. [facility] Medical History (Updated 06/17/23 @ 07:[address] Gael Nowak MD) History of kidney stones HIV (human immunodeficiency virus infection) Marfan syndrome Pruritus ani Home Medications bictegravir 50 mg-emtricitabine 200 mg-tenofovir alafenam 25 mg tablet (Biktarvy) 1 tab PO DAILY hiv 05/29/23 [History Last Taken 06/16/23] hydrocodone-acetaminophen 5-325mg 5mg-325mg 1 tab PO Q6H PRN PRN Pain 3 days #10 TABLETS 05/29/23 [Rx Last Taken Unknown] ibuprofen 600 mg tablet 600 mg PO Q8H PRN PRN pain #20 TABLETS 05/29/23 [Rx Last Taken Unknown] omeprazole 40 mg capsule,delayed release 40 mg PO DAILY stomach 05/29/23 [History Last Taken Unknown] ondansetron 4 mg disintegrating tablet 4 mg PO Q8H PRN PRN Nausea #10 tabs 05/29/23 [Rx Last Taken Unknown] rosuvastatin 10 mg tablet (Crestor) 10 mg PO DAILY hld 05/29/23 [History Last Ta jerald Unknown] Allergy/AdvReac Type Severity Reaction Status Date / Time No Known Allergies Allergy Verified 06/16/23 17:29 Surgical History History of hernia repair Social History household members: spouse Smoking Status: Never smoker Vital Signs Vital Signs Vital Signs: 06/16/23 17:28 06/16/23 21:39 06/16/23 21:42 Temperature 98 F 98.3 F 98.1 F Temperature Source Temporal Temporal Pulse Rate 91 81 81 Pulse Strength Respiratory Rate 16 18 19 H Respiratory Effort Respiratory Depth Respiratory Pattern Blood Pressure 136/89 H 132/79 H 132/78 H Blood Pressure Mean 104 96 96 Blood Pressure Source Blood Pressure Position Blood Pressure Location Pulse Ox 99 97 98 Oxygen Delivery Method Room Air Room Air 06/16/23 22:06 06/16/23 22:59 06/16/23 22:00 Temperature 97.9 F Temperature Source Oral Pulse Rate 75 Pulse Strength Normal (2+) Respiratory Rate 17 Respiratory Effort Normal Non-Labored Respiratory Depth Normal Respiratory Pattern Normal Blood Pressure 140/72 H Blood Pressure Mean 94 Blood Pressure Source Monitor Blood Pressure Position Semi-Fowlers Blood Pressure Location Right Arm Pulse Ox 95 Oxygen Delivery Method Room Air Room Air 06/17/23 04:10 Temperature 98.2 F Temperature Source Oral Pulse Rate 85 Pulse Strength Respiratory Rate 16 Respiratory Effort Respiratory Depth Respiratory Pattern Blood Pressure 125/80 H Blood Pressure Mean 95 Blood Pressure Source Monitor Blood Pressure Position Semi-Fowlers Blood Pressure Location Left Arm Pulse Ox 96 Oxygen Delivery Method Room Air Weight Weight: 117.6 kg Body Mass Index (BMI) 31.5 Results Lab / Micro Data 06/16/23 17:45 06/16/23 17:45 Labs: Laboratory Results - last 24 hr 06/16/23 17:45: WBC 9.3, RBC 4.90, Hgb 15.0, Hct 43.7, MCV 89.2, MCH 30.6, MCHC 34.3, RDW Std Deviation 42.6, RDW Coeff of Dennis 13.1, Plt Count 220, MPV 10.1, Immature Gran % (Auto) 0.300, Neut % (Auto) 70.5 H, Lymph % (Auto) 17.3 L, Lucas % (Auto) 10.5 H, Eos % (Auto) 1.0, Baso % (Auto) 0.4, Absolute Neuts (auto) 6.6, Absolute Lymphs (auto) 1.61, Nucleated RBC % 0, Sodium 143, Potassium 3.4 L, Chloride 112 H, Carbon Dioxide 24.0, Anion Gap 7, BUN 19 H, Creatinine 1.85 H, Estim Creat Clear Calc 68.64, Est GFR (MDRD) Af Amer 50 L, Est GFR (MDRD) Non-Af 41 L, BUN/Creatinine Ratio 10.3, Glucose 105, Calcium 8.7 06/16/23 19:34: Urine Color Yellow, Urine Clarity Clear, Urine pH 5.0, Ur Specific [place] 1.025, Urine Protein 30 H, Urine Glucose (UA) Normal, Urine Ketones 50 H, Urine Occult Blood 250 H, Urine Nitrite Negative, Urine Bilirubin Negative, Urine Urobilinogen Normal, Ur Leukocyte Esterase 25 H, Urine RBC 5-10 SEEN, Urine WBC 0-5 SEEN, Ur Squamous Epith Cells 0 SEEN, Calcium Oxalate Crystal 1+, Urine Bacteria 0 SEEN, Urine Mucus 0 SEEN Imaging Radiology Impression Abdomen/Pelvis CT 06/16/23 18:09 IMPRESSION: Obstruction of the right kidney from a 6 mm right UPJ stone. Electronically Signed: Roger Dey MD at 18:56 EST , Assessment & Plan Assessment/Plan (1) Kidney stone on right side: PLAN: Plan for cystoscopy and stent placement right side
--- NOTE | 2023-06-17 09:53 | CASEMGMT ---
Social Work SW met with pt to discuss advance directives.? Pt confirms he has completed a living will and health care POA naming his Alexandra Carson.? Pt notified that documents are not on file at [facility]. Pt states he is aware and his will be bringing documents in today when she comes. SILAS Archer
[2023-06-17] MEDS: Acetaminophen 325 MG Tablet 650 MG PO (11:08)
[2023-06-17] MEDS: Lactated Ringers 1,000 ML 15 ML IV (15:00)
--- NOTE | 2023-06-17 15:14 | DCINST_ITS ---
Discharge Instructions Diet Discharge Diet: No restrictions Activity Discharge Activity: Return to Normal Activity and May Not Drive (while taking narcotic pain medications.) Dressing / Incision Call your doctor if you observe: Fever of 101 or Higher Follow Up Care Please Follow Up With: Gael Nowak MD When: Call [phone] for an appointment Test Results: Test results from this visit will be discussed in further detail at your follow- up appointment, if applicable. Discharge Plan Admission Admit Date/Time: 06/16/23 22:49 Primary Reason for Your Visit: kidney stone Attending Provider: Gael Nowak Primary Care Provider: James Gamble Discharge Orders/Prescriptions Prescriptions: New cephalexin 500 mg capsule 500 mg PO BID Qty: 14 0RF tamsulosin [Flomax] 0.4 mg capsule 0.4 mg PO QHS Qty: 30 0RF ibuprofen 600 mg tablet 600 mg PO Q6H PRN (Reason: fever or pain) Qty: 20 0RF phenazopyridine [Pyridium] 100 mg tablet 100 mg PO TID Qty: 14 0RF Continued omeprazole 40 mg capsule,delayed release(DR/EC) 40 mg PO DAILY Biktarvy 50-200-25 mg tablet 1 tab PO DAILY rosuvastatin [Crestor] 10 mg tablet 10 mg PO DAILY ibuprofen 600 mg tablet 600 mg PO Q8H PRN PRN (Reason: pain) Qty: 20 0RF ondansetron 4 mg tablet,disintegrating 4 mg PO Q8H PRN PRN (Reason: Nausea) Qty: 10 0RF hydrocodone-acetaminophen 5-325 mg tablet 1 tab PO Q6H PRN PRN (Reason: Pain) 3 Days Qty: 10 0RF Referrals / Follow Up: James Gamble MD [Primary Care Provider] - Gael Nowak MD [Med Staff - Active Staff] - Disposition Discharge Orders: Discharge Patient (Routine); Ordered 06/17/23 Ordered By: Dr. Gael Nowak
--- NOTE | 2023-06-17 16:19 | PCM.OPRPT ---
Report of Operation Date of Procedure: 06/17/23 Pre-Operative Diagnosis: Right ureteral calculi Post-Operative Diagnosis: The same Surgery/Procedure Performed:: cysto stent placement and retrograde pyelogram Description of Surgical Findings:: Patient was taken back to the operating room after induction of general anesthesia, the patient was placed in dorsolithotomy position. The urethra and genitals were prepped and draped in usual sterile fashion. Using a 21 [place] rigid cystourethroscope the entire length of the urethra was normal then went into the bladder. Identified the trigone the left and right ureteral orifice. I then cannulated the right ureteral orifice and advanced a wire up into the kidney. I then backloaded a 5 [place] open ended catheter over the wire and injected contrast to delineate the anatomy. After the retrograde was performed I then used fluoroscopic images and guidance to advanced a wire up into the kidney and over the 0.038 glidewire I advanced a 6 [place] by 26 cm double pigtail stent. I then pulled the 0.038 Glidewire off and the stent coiled in the kidney bladder good position. The bladder was then drained. We confirmed the position of the stent by fluoroscopy. Patient anesthetic was reversed and was taken back to the PACU in good condition. Surgeon: Gael Nowak Type of Anesthesia: General Admit VTE Documentation VTE Present on Admission: No VTE Mechan Device Prophylaxis: SCD's VTE Pharm Prophylaxis ordered?: No
[2023-06-17] MEDS: Pantoprazole Sodium 40 MG Tablet PO (17:19)
[2023-06-17] MEDS: Tamsulosin HCl 0.4 MG Capsule 0.400000000000000022 MG PO (17:19)
[2023-06-17] MEDS: Atorvastatin Calcium 20 MG Tablet PO (17:20)
== END 2023-06-17 18:30 | disposition home or self-care (01) ==
LOC: ED 19:17 → MS3 06-17 00:26
PROVIDERS: Admitting Provider Urology; Emergency Provider Emergency Medicine; PCP Family Medicine; Visit Provider Urology
PROC: (CPT 52332; principal; 2023-06-17 16:05)
DX: N20.2 Calculus of kidney with calculus of ureter (principal); Z21 Asymptomatic human immunodeficiency virus [HIV] infection status; Q87.40 Marfan syndrome, unspecified; Z79.899 Other long term (current) drug therapy; K59.09 Other constipation
CPT/HCPCS: 52332; 00910; 74176; 76000; 80048; 81001; 85025; 96361; 96365; 96366; 96375; 96376; 99221; 99285; J7050; J7120; A4216; C1769; C2617; G0378; J0744; J2405

== ENCOUNTER 2024-04-11 10:26 | Day surgery (SDC) | payer BC, SELFPAY ==
[2024-04-11] VITALS (9 sets, daily range): BP systolic 102–140; BP diastolic 56–86; PULSE 72–96; RESP 16–18; TEMP 36.3–36.6; O2SAT 96–100; BMI 31.9
--- NOTE | 2024-04-11 12:00 | HEM_PTH ---
PATIENT: GINNY ARECHIGA [facility] [facility] U[place][id number] AGE/SX: 48/M ROOM: RE04/11/[address]: Dr. Daryn Mobley MD : 1975 BED: DIS: 04/11/2024 SPEC #: [id number] RECD: 04/12/24 07:58 STATUS: BERHANE SALAZARGayla #: [id number] VICTORIA: 04/11/24 12:[address]: Daryn Mobley DEPT: SURGICAL PATHOLOGY RECD BY: Mikel Bledsoe ENTERED: 04/12/24 09:29 SP TYPE: HEMORRHOID OTHR DR: Dr. James Gamble MD Tissues: HEMORRHOIDS Procedures: Surgery Specimen Level III HEADER OPERATION: Excision of external hemorrhoids PRE-OP DIAGNOSIS: Hemorrhoids TISSUE SUBMITTED: Hemorrhoids MICROSCOPIC DIAGNOSIS Hemorrhoids, excision: Fragments of anorectal mucosa with congested and dilated blood vessels, consistent with hemorrhoids. SJ.mr 04/13/2024 MICROSCOPIC DESCRIPTION Slides are reviewed. GROSS DESCRIPTION Received in fixative is one container labeled with the patient's name and designated Hemorrhoids. The specimen consists of two pieces of pink congested mucosal tissue measuring 8.0 x 2.5 x 1.5cm and 6.0 x 1.5 x 1.5cm. Sections reveal congested and hemorrhagic cut surfaces. Store Operations Associate sections for both pieces are submitted in two cassettes. 04/12/2024 TC:5 CPT:15663
--- NOTE | 2024-04-11 12:00 | PCM.PRE.AN2 ---
ASA Classification* ASA Classification ASA Classification: 3 Assessment & Plan Anesthesia* Anesthesia Assessment Anesthesia Assessment: Discussed sedation and/or anesthesia options, risks, benefits, and alternatives with patient/parents/legal guardian/POA. Questions invited. The patient/parents/legal guardian/POA seems to understand and agrees to proceed with anesthesia plan. Reviewed the physical assessment, medical history, allergy history and patient home medications list prior to surgery/procedure/anesthetic and documented any changes. Performed airway and anesthesia risk assessments. Anesthesia Type Anesthesia Type: MAC (GA bkup) Anesthesia Focused Assessment* Temperature: 97.6 F Pulse Rate: 86 Blood Pressure: 121/86 Respiratory Rate: 16 Pulse Ox: 100 Airway Assessment Mouth opens: >3 cm Mallampati Score: II Focused Labs Anesthesia Preop lab: CBC WBC 9.3 K/mm3 (4.4-11.0) 06/16/23 17:45 RBC 4.90 M/mm3 (4.6-6.2) 06/16/23 17:45 Hgb 15.0 g/dL (13.0-16.5) 06/16/23 17:45 Hct 43.7 % (40-54) 06/16/23 17:45 Plt Count 220 K/mm3 (150-450) 06/16/23 17:45 CHEMISTRY Potassium 3.4 mmol/L (3.5-5.1) L 06/16/23 17:45 Sodium 143 mmol/L (136-145) 06/16/23 17:45 BUN 19 mg/dL (7-18) H 06/16/23 17:45 Creatinine 1.85 mg/dL (0.70-1.30) H 06/16/23 17:45 Glucose 105 mg/dL (74-106) 06/16/23 17:45 COAG Pre-Assessment Diagnosis/Proposed Procedure Planned Operative Procedure(s): EXCISION OF EXTERNAL HEMMORHOIDS DOPPLER GUIDED HEMMORHOID ARTERY LIGATION Anesthesia History 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 When Was Last Pacemaker Check QUESTION #4 FULL TEXT: You/Your Family Experience fever (hyperthermia) with Anesthesia Last Oral Intake Last Oral intake: Last Oral Intake NPO since 08:00 04/11/24 11:15 Meds taken in AM with sips of Yes 04/11/24 11:15 water? Meds patient instructed to take am of surgery PONV PONV - building maintenance engineer: PONV - building maintenance engineer Female No 03/28/24 09:21 HX of Motion Sickness Yes 03/28/24 09:21 HX of N/V After Surgery No 03/28/24 09:21 Non-Smoker Yes 03/28/24 09:21 Duration of Surgery greater Yes 03/28/24 09:21 than 60 minutes Number of Risk Factors 3 03/28/24 09:21 PONV Score Moderate Risk 03/28/24 09:21 Height & Weight Height & Weight: Anesthesia: Height & Weight Height 6 ft 3 in 04/11/24 11:15 Weight: 116 kg 04/11/24 11:15 Body Mass Index (BMI) 31.9 04/11/24 11:15 Respiratory Assessment Respiratory Assessment - building maintenance engineer: Respiratory Tract Infection Hx - building maintenance engineer Hx Respiratory Tract Infection No 03/28/24 09:21 STOP Sleep Apnea STOP Sleep Apnea - building maintenance engineer: STOP Sleep Apnea - building maintenance engineer Hx Hypertension No 03/28/24 09:21 Hx Sleep Apnea No 03/28/24 09:21 CPAP BIPAP Do you snore loudly (louder No 03/28/24 09:21 than talking or can be heard Do you often feel tired/ No 03/28/24 09:21 fatigued/ sleepy during daytime? Has anyone observed you stop No 03/28/24 09:21 breathing during sleep? STOP Results Negative 03/28/24 09:21 QUESTION #5 FULL TEXT : Do you snore loudly (louder than talking or can be heard through closed doors)? 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 Specify any problems Hx of Preganancy in last 3 N/A 03/28/24 09:21 Months Nurse Filling Out Transfusion DSCHRIBER 03/28/24 09:21 & Questions: Date: 03/28/24 03/28/24 09:21 Time: :23 03/28/24 09:21 Patient unable to answer at this time (ie. confused, unrespo /Reproduction History /Reproductive History - building maintenance engineer: /Reproductive Hx- building maintenance engineer Hx Now No 03/28/24 09:21 Gestational Age (in weeks): EDC: Hx Hx Para Hx Section SAB No 03/28/24 09:21 PFSH Medical History Wears glasses Wears dentures Alcohol use Arthritis DVT (deep venous thrombosis) High cholesterol Back pain Headache Gastric reflux Non-smoker History of pain when walking History of edema History of echocardiogram HIV (human immunodeficiency virus infection) Marfan syndrome Pruritus ani Hemorrhoids Home Medications ?Medication ?Instructions ?Recorded ?Last Taken ?Type bictegravir 50 mg-emtricitabine 1 tab PO DAILY hiv 05/29/23 04/11/24 History 200 mg-tenofovir alafenam 25 mg tablet (Biktarvy) omeprazole 40 mg capsule,delayed 40 mg PO DAILY stomach 05/29/23 04/11/24 History release rosuvastatin 10 mg tablet (Crestor) 10 mg PO DAILY hld 05/29/23 04/11/24 History ibuprofen 600 mg tablet 600 mg PO Q6H PRN fever or pain 06/17/23 Unknown Rx #20 tabs tamsulosin 0.4 mg capsule (Flomax) 0.4 mg PO QHS #30 caps 06/17/23 Unknown Rx cholecalciferol (vitamin D3) 25 25 mcg PO DAILY 03/28/24 Unknown History mcg (1,000 unit) tablet (Vitamin D3) diphenhydramine HCl 25 mg tablet 25 mg PO QHS 03/28/24 Unknown History (Sleep-Tabs) inulin 2 gram chewable tablet 2 g PO DAILY 03/28/24 Unknown History (Fiber Gummies) multivitamin with minerals-folic 1 tab PO DAILY 03/28/24 Unknown History acid 200 mcg chewable tablet (Adult Multivitamin Gummies) Allergy/AdvReac Type Severity Reaction Status Date / Time amoxicillin Allergy Intermediate Rash Verified 04/11/24 11:11 gabapentin Allergy Mild Rash Verified 04/11/24 11:11 Surgical History Hx of colonoscopy History of cystoscopy History of umbilical hernia repair Hx of inguinal hernia surgery Social History household members: spouse Smoking Status: Never smoker alcohol intake: never substance use type: does not use Review of Systems (Anesthesia) ROS Narrative System reviewed and no additional complaints, except as documented.
--- NOTE | 2024-04-11 13:26 | HP.PCM_ITS ---
HPI - General General Date of Admission: 04/11/24 Date of Service: 04/11/24 HPI Narrative GINNY ARECHIGA, is a 48 M who presents for elective hemorrhoid surgery [facility] Medical History Wears glasses Wears dentures Alcohol use Arthritis DVT (deep venous thrombosis) High cholesterol Back pain Headache Gastric reflux Non-smoker History of pain when walking History of edema History of echocardiogram HIV (human immunodeficiency virus infection) Marfan syndrome Pruritus ani Hemorrhoids Home Medications ?Medication ?Instructions ?Recorded ?Last Taken ?Type bictegravir 50 mg-emtricitabine 1 tab PO DAILY hiv 05/29/23 04/11/24 History 200 mg-tenofovir alafenam 25 mg tablet (Biktarvy) omeprazole 40 mg capsule,delayed 40 mg PO DAILY stomach 05/29/23 04/11/24 History release rosuvastatin 10 mg tablet (Crestor) 10 mg PO DAILY hld 05/29/23 04/11/24 History ibuprofen 600 mg tablet 600 mg PO Q6H PRN fever or pain 06/17/23 Unknown Rx #20 tabs tamsulosin 0.4 mg capsule (Flomax) 0.4 mg PO QHS #30 caps 06/17/23 Unknown Rx cholecalciferol (vitamin D3) 25 25 mcg PO DAILY 03/28/24 Unknown History mcg (1,000 unit) tablet (Vitamin D3) diphenhydramine HCl 25 mg tablet 25 mg PO QHS 03/28/24 Unknown History (Sleep-Tabs) inulin 2 gram chewable tablet 2 g PO DAILY 03/28/24 Unknown History (Fiber Gummies) multivitamin with minerals-folic 1 tab PO DAILY 03/28/24 Unknown History acid 200 mcg chewable tablet (Adult Multivitamin Gummies) Allergy/AdvReac Type Severity Reaction Status Date / Time amoxicillin Allergy Intermediate Rash Verified 04/11/24 11:11 gabapentin Allergy Mild Rash Verified 04/11/24 11:11 Surgical History Hx of colonoscopy History of cystoscopy History of umbilical hernia repair Hx of inguinal hernia surgery Social History household members: spouse Smoking Status: Never smoker alcohol intake: never substance use type: does not use ROS Constitutional Constitutional: Reports systems reviewed and no addt'l complaints, except as documented Eyes Eyes: Reports systems reviewed and no addt'l complaints, except as documented ENT HEENT: Reports systems reviewed and no addt'l complaints, except as documented Cardiovascular Cardiovascular: Reports systems reviewed and no addt'l complaints, except as documented Respiratory/Chest Respiratory/Chest: Reports systems reviewed and no addt'l complaints, except as documented Gastrointestinal Gastrointestinal: Reports systems reviewed and no addt'l complaints, except as documented Genitourinary Genitourinary: Reports systems reviewed and no addt'l complaints, except as documented Musculoskeletal Musculoskeletal: Reports systems reviewed and no addt'l complaints, except as documented Integumentary Integumentary: Reports systems reviewed and no addt'l complaints, except as documented Vital Signs Vital Signs Vital Signs: 04/11/24 11:15 04/11/24 11:15 04/11/24 12:01 Temperature 97.6 F L 97.6 F L Temperature Source Temporal Pulse Rate 86 86 Respiratory Rate 16 16 Respiratory Pattern Normal Blood Pressure 121/86 H 121/86 H Blood Pressure Mean 97 Blood Pressure Source Monitor Blood Pressure Position Sitting Blood Pressure Location Left Arm Pulse Ox 100 100 Oxygen Delivery Method Room Air Weight Weight: 255 lb 11.779 oz Body Mass Index (BMI) 31.9 Physical Exam Const General Appearance: cooperative, comfortable and well developed Assessment & Plan Assessment/Plan (1) Hemorrhoids: QUALIFIERS: Hemorrhoid type: second degree Qualified Code(s): K64.1 - Second degree hemorrhoids PLAN: Plan plan for excision of external hemorrhoids and doppler ligation of internal hemorrhoids Charges/Coding Visit Charges Inpatient E&M: 83804 Init Hosp L1
[2024-04-11] MEDS: Bupiv/Epi 0.25% 30 ML Vial (15:17)
[2024-04-11] MEDS: Dibucaine 30 GM Tube 1 APPLIC (15:17)
[2024-04-11] MEDS: BACITRACIN 15 GM Tube 1 APPLIC TOPICAL (15:17)
[2024-04-11] MEDS: Lubricating Jelly 60 GM Tube 30 GM (15:18)
--- NOTE | 2024-04-11 15:38 | EX.PCM.DISCH ---
Discharge Instructions Diet Discharge Diet: Light diet - advance as tolerated Activity Discharge Activity: Return to Normal Activity Dressing / Incision Call your doctor if your incision/area has: Continuous Slow Oozing, Sudden Increased Bleeding and Increased Pain/ Swelling Call your doctor if you observe: Fever of 101 or Higher Cleanse incision/area with: Soap & Water Follow Up Care Please Follow Up With: Daryn Mobley MD When: 2-3 weeks Test Results: Test results from this visit will be discussed in further detail at your follow-up appointment, if applicable. Discharge Plan Admission Primary Reason for Your Visit: hemorrhoids Attending Provider: Daryn Mobley Primary Care Provider: James Gamble Instructions Print Language: Macedonian Discharge Orders/Prescriptions Prescriptions: New oxycodone-acetaminophen [Percocet] 5-325 mg tablet 1 tab PO Q8H PRN (Reason: pain) 3 Days Qty: 14 0RF Continued omeprazole 40 mg capsule,delayed release(DR/EC) 40 mg PO DAILY Biktarvy 50-200-25 mg tablet 1 tab PO DAILY rosuvastatin [Crestor] 10 mg tablet 10 mg PO DAILY Fiber Gummies 2 gram tablet,chewable 2 g PO DAILY cholecalciferol (vitamin D3) [Vitamin D3] 25 mcg (1,000 unit) tablet 25 mcg PO DAILY multivit with min-folic acid [Adult Multivitamin Gummies] 200 mcg tablet,chewable 1 tab PO DAILY diphenhydramine HCl [Sleep-Tabs] 25 mg tablet 25 mg PO QHS tamsulosin [Flomax] 0.4 mg capsule 0.4 mg PO QHS Qty: 30 0RF ibuprofen 600 mg tablet 600 mg PO Q6H PRN (Reason: fever or pain) Qty: 20 0RF Referrals / Follow Up: James Gamble MD [Primary Care Provider] - Disposition Disposition (needs filled in before D/C Order can be placed): Home, Self Care
--- NOTE | 2024-04-11 15:40 | PCM.POST.ANE ---
Anesthesia: Postop Eval I Current Vital Signs Temperature: 97.8 F Pulse Rate: 96 Blood Pressure: 132/80 Respiratory Rate: 16 Pulse Ox: 96 Oxygen Delivery Method: Room Air Assessment Airway patent: Yes Spontaneous unlabored respirations: Yes Mental status: Awake and Calm nausea: No Vomiting: No Anesthesia Complication: No Fluid Hydration Crystalloid volume administer (ml): 50 Total IV fluid infused: 50 Progress Note Anesthesia document: Postop Eval 1 completed: Yes
--- NOTE | 2024-04-11 15:43 | PCM.OPRPT ---
Problems Associated Problem List Diagnoses (1) Hemorrhoids: Multi Select Codes Digestive Digestive CPT Codes: 96376 Remove in/ex hem groups 2+ and 07145 Excision, Anus w/US guidance (doppler hemorrhoid artery ligation) Operative Report (Standard) Operative Information Date of Procedure: 04/11/24 Pre-Operative Diagnosis: Internal and external hemorrhoids Post-Operative Diagnosis: Same Surgery/Procedure Performed: 1. Doppler guided hemorrhoid artery ligation 2. Excision of external hemorrhoids spool cleaner hand: Yes Animal Physiologist: Lisa Healy Tasks completed by or first assist registered nurse: Retracting Additional human resource assistant?: No Type of Anesthesia: General and Local RN Documented Start/Stop Times: Operation Date: 04/11/24 12:00 Case Time Into Pre-Op 04/11/24 10:58 Out of Pre-Op 04/11/24 14:14 Anesthesia Start 04/11/24 14:16 Into Room 04/11/24 14:16 Procedure Start 04/11/24 14:37 Procedure End 04/11/24 15:27 Procedure Start Time: 14:37 Procedure Stop Time: 15:27 Select all DRAINS/GRAFTS/IMPLANTS that apply: None Estimated Blood Loss: 5 mL Fluids Replaced: None Specimen collected: Yes Description of specimen(s) removed: External hemorrhoids Description of surgery: The patient is a 48-year-old male who is recently seen through the office with symptomatic internal and external hemorrhoids. He was mostly symptomatic from the external hemorrhoids. He had very significant hemorrhoids both internally and externally. I recommended excision of his external hemorrhoids along with Doppler hemorrhoid artery ligation for his internal hemorrhoids. We discussed the details of the planned procedure including potential risks and benefits. He wished to proceed. Patient was brought to the operating room today following informed consent. He was placed supine on the operative table with arms outstretched on arm boards. A general LMA anesthesia was induced. Once adequately sedated, his legs were placed in a modified lithotomy position. The perineal region was then prepped and draped in the usual sterile manner. Digital rectal exam was performed and no obvious masses were noted. He had very significant external hemorrhoids as well as some prolapsing internal hemorrhoids. The Doppler hemorrhoid ligation portion of the procedure was performed first. This was performed by inserting the Doppler probe first at the 12 o'clock position and the probe was turned in a clockwise direction until a dopplerable signal was identified. This was identified at the 1 o'clock position. A 2-0 Vicryl suture was placed in a [id number] manner at this location. This effectively tied off the blood vessel. The probe was removed and this was repeated again at the 3 o'clock position. This was performed a total of 7 times around the circumference of the anus. This effectively tied off the blood supply to the internal hemorrhoids. Once this was performed, we turned our attention to the significant external hemorrhoids. These were excised using hand-held harmonic scalpel. Once removed 2-0 Vicryl was then used to try to reapproximate the perianal skin to the anal mucosa. This was performed in a running manner.. This closed the area nicely. Total of 30 cc of local anesthetic were injected both locally in the perianal area as well as in a bilateral pudendal block manner. A Gelfoam plug was inserted into the anus. This was coated with Dibucaine as well as triple antibiotic ABD and mesh underwear were applied as dressing. He was awakened anesthesia and taken to PACU in good condition. An INDUSTRIAL WELDER was utilized as an human resource assistant. Her role included holding the Doppler probe and providing some retraction. Surgical Findings: Significant external hemorrhoids along with prolapsing internal hemorrhoids Complications Complications: No Admit VTE Documentation VTE Present on Admission: No VTE Mechan Device Prophylaxis: SCD's VTE Pharm Prophylaxis ordered?: No Reason prophylaxis not ordered: Treatment Not Indicated
--- NOTE | 2024-04-11 17:15 | POSTOPAN2_ITS ---
Anesthesia Postop Eval I Sum Postop Eval Completion status Anesthesia document: Postop Eval 1 completed: Yes Anesthesia Postop Eval I Summary Anesthesia Postop Eval I Summary: Anesthesia Postop Eval I: Assessment Summary Airway patent Yes 04/11/24 15:41 CONSTRUCTION [email or web address] Spontaneous unlabored Yes 04/11/24 15:41 CONSTRUCTION [email or web address] respirations Mental status Awake,Calm 04/11/24 15:41 CONSTRUCTION [email or web address] nausea No 04/11/24 15:41 CONSTRUCTION [email or web address] Vomiting No 04/11/24 15:41 CONSTRUCTION [email or web address] Anesthesia Postop Eval I: Fluid Summary Crystalloid volume administer 50 04/11/24 15:41 CONSTRUCTION [email or web address] (ml) Colloids volume administered ( ml) Blood Product volume administered (ml) Total IV fluid infused 50 04/11/24 15:41 CONSTRUCTION [email or web address] Anesthesia Postop Eval I: Summary Notes Anesthesia Complication No 04/11/24 15:41 CONSTRUCTION [email or web address] Anesthesia Complication Comment: Post-operative progress note Anesthesia: Postop Eval II Evaluation Mental status: Awake Pain Level: 0 nausea: No Vomiting: No
--- NOTE | 2024-04-11 17:15 | PCM.POSTANE2 ---
Anesthesia Postop Eval I Sum Postop Eval Completion status Anesthesia document: Postop Eval 1 completed: Yes Anesthesia Postop Eval I Summary Anesthesia Postop Eval I Summary: Anesthesia Postop Eval I: Assessment Summary Airway patent Yes 04/11/24 15:41 PAINT [email or web address] [email or web address] Spontaneous unlabored Yes 04/11/24 15:41 PAINT [email or web address] [email or web address] respirations Mental status Awake,Calm 04/11/24 15:41 PAINT [email or web address] [email or web address] nausea No 04/11/24 15:41 PAINT [email or web address] [email or web address] Vomiting No 04/11/24 15:41 PAINT [email or web address] [email or web address] Anesthesia Postop Eval I: Fluid Summary Crystalloid volume administer 50 04/11/24 15:41 PAINT [email or web address] [email or web address] (ml) Colloids volume administered ( ml) Blood Product volume administered (ml) Total IV fluid infused 50 04/11/24 15:41 PAINT BRUSH [email or web address] Anesthesia Postop Eval I: Summary Notes Anesthesia Complication No 04/11/24 15:41 PAINT BRUSH [email or web address] Anesthesia Complication Comment: Post-operative progress note Anesthesia: Postop Eval II Evaluation Mental status: Awake Pain Level: 0 nausea: No Vomiting: No
== END 2024-04-11 18:20 | disposition home or self-care (01) ==
LOC: SDC 10:26 → AC 11:38
PROVIDERS: PCP Family Medicine; Referring Provider Surgery; Visit Provider Surgery
PROC: (CPT 46260; principal; 2024-04-11 11:45)
DX: K64.1 Second degree hemorrhoids (principal); B20 Human immunodeficiency virus [HIV] disease; E78.00 Pure hypercholesterolemia, unspecified; Z86.718 Personal history of other venous thrombosis and embolism; Z87.19 Personal history of other diseases of the digestive system; Q87.40 Marfan syndrome, unspecified; K59.09 Other constipation
CPT/HCPCS: 46260; 46948; 00902; 88304; A4216; J2405

== ENCOUNTER → 2024-10-18 | Outpatient (CLI) | payer BC, SELFPAY ==
[2024-10-18 16:52] LABS: PSA,Total - Annual Screen 1.98 ng/mL (0.02-4.00)
== END | disposition home or self-care (01) ==
LOC: LAB 15:01
PROVIDERS: PCP Family Medicine; Referring Provider Nurse Practitioner; Visit Provider Nurse Practitioner
DX: Z12.5 Encounter for screening for malignant neoplasm of prostate (principal)
CPT/HCPCS: 36415; 84153; G0103

== ENCOUNTER → 2025-03-16 | Outpatient (CLI) | payer BC, SELFPAY ==
--- NOTE | 2025-03-16 12:31 | CT_ITS ---
PROCEDURE: LIMITED CHEST CT CARDIAC ONLY 03/16/2025 REASON FOR EXAM: MARFANS TECHNIQUE: Procedure Code: [id number] Modality: CT Procedure: LIMITED CHEST CT CARDIAC ONLY One or more dose reduction techniques were used (e.g., Automated exposure control, adjustment of the mA and/or kV according to patient size, use of iterative reconstruction technique). RADIATION DOSE SUMMARY: DLP: 3653.[address]/Limited Chest CT Cardiac Only IMPRESSION: A densely calcified posterior-inferior right upper lobe nodule is seen, consist ent with old granulomatous disease. Diffuse fatty infiltration of the liver is noted. Limited imaging of the lungs demonstrates no acute process. No pleural effusion or pneumothorax is seen in visualized areas. No adenopathy is noted. The visualized upper abdomen demonstrates no other significant abnormality. Reading Location: [place] [id number]
[2025-03-16 12:45] VITALS: BP 118/76; PULSE 68; RESP 16; TEMP 36.6; O2SAT 96; BMI 30.2
[2025-03-16 12:52] VITALS: BP 118/76; PULSE 68
[2025-03-16] MEDS: Nitroglycerin SL (ED/IMG/CATH) 0.4 MG TABLET SL (12:52)
[2025-03-16 13:07] VITALS: BP 107/67; PULSE 88; RESP 16; O2SAT 95
--- NOTE | 2025-03-17 07:04 | CCTA.WCONT ---
CCTA w/Cont Coronary Arteries Date of Study:: 03/16/25 Evaluation for obstructive coronary disease Coronary Calcium Scoring: High-resolution Computed Tomographic imaging of the chest was performed on [03/16/2025], with particular attention paid to the coronary arteries. Intravenous contrast agent was administered per protocol and images reconstructed and displayed. LEFT MAIN CORONARY ARTERY: Arises from the left main coronary cusp and bifurcates the left anterior descending artery and left circumflex artery. No significant atherosclerotic plaquing or stenosis noted [] LEFT ANTERIOR DESCENDING CORONARY ARTERY: Arises from the left main coronary artery. It gives off a first diagonal branch which bifurcates. The vessel continues in the interventricular septum towards the apex of the ventricle. No significant atherosclerotic plaquing or stenosis is present. [] LEFT CIRCUMFLEX CORONARY ARTERY: Nondominant vessel arising off the left main coronary cusp. An atrial circumflex branch is noted. 2 obtuse marginal vessels are noted with no significant atherosclerotic plaquing or stenosis present. [] RIGHT CORONARY ARTERY: Dominant right coronary artery arising from the right coronary cusp. Giving off an acute marginal branch and terminating with a posterior descending artery and posterolateral vessel. No significant stenosis or atherosclerotic plaquing is noted. [] THORACIC AORTA: Mildly dilated. See formal report for dimensions. [] PULMONARY ARTERY: Normal size [] LEFT ATRIUM/APPENDAGE: [] MITRAL VALVE: Normal [] AORTIC VALVE: Trileaflet [] LEFT VENTRICLE: Normal size [] CORONARY CALCIUM SCORE: Not performed [] Calcium Scoring Interpretation: Different methods to categorize the overall amount of coronary plaque. Overall amount CAC SIS Visual of coronary plaque P1 Mild -100 <2 1-2 vessels with mild amount of plaque P2 Moderate 101-300 3-4 1-2 vessels with moderate amount, 3 vessels with mild amount of plaque P3 Severe 301-999 5-7 3 vessels with moderate amount, 1 vessel with severe amount of plaque P4 Extensive >1000 >8 2-3 vessels with severe amount of plaque Conclusion: CT angiogram demonstrating no obstructive coronary disease, no coronary plaque noted.
== END | disposition home or self-care (01) ==
PROVIDERS: PCP Family Medicine; Referring Provider Student in an Organized Health Care Education/Training Program; Visit Provider Student in an Organized Health Care Education/Training Program
DX: Q87.40 Marfan syndrome, unspecified (principal); R00.2 Palpitations
CPT/HCPCS: 71275; 74174; 75574; 76380; Q9967